=== PATIENT | female | born 1955 ===

== ENCOUNTER 2023-07-24 11:37 | Emergency (ER) | payer MEDICARE, BC, SELFPAY ==
[2023-07-24 11:44] VITALS: BP 124/57
--- NOTE | 2023-07-24 12:43 | ED.GENMED ---
History of Present Illness
General
Chief Complaint: Fall
Source: patient
Time Seen by Provider: 07/24/23 12:07
Travel History
Have you had any contact with someone who has COVID-19?: No
Do you have any symptoms of coronavirus? Fever > 100 degrees, chills, cough, shortness of breath, sore throat, loss of taste or smell, muscle aches, or headache?: No
History of Present Illness
History of Present Illness:
68-year-old female presents to the emergency room for evaluation of right wrist pain. Patient states yesterday she fell after getting out of bed. She denies any significant head injury. She did land on her outstretched right arm. She has pain
with range of motion. She is right-hand dominant. She takes Plavix but no other oral anticoagulation. Currently she has no other complaints than the right wrist pain.
Past History
Past History
ED Past Medical History: CAD, HTN, IDDM, Hypothyroidism and Other (Sarcoidosis)
ED Past Surgical History: Cardiac
Social History
Personal:
Phy Exam
Physical Exam
Physical Exam:
General: Awake, Alert, Oriented X3. No acute distress.
Vitals: unremarkable
Head: Atraumatic
Eyes: Pupils equal, EOMI
Throat: Airway intact, no exudates
Neck: Trachea midline
Neuro: Nonfocal
Skin: Warm, dry, no rash
Extremities: Tenderness palpation over the distal right radius. Mild swelling of the wrist. Pain with range of motion.
Course
Orders/Labs/Results
Orders:
Orders
07/24/23 11:47
CR Wrist - Right Min 3 Views Urgent
Comment:
Reason For Exam: pain
Hand, Right 3 View [CR Hand - Right Min 3 Views] Urgent
Comment:
Reason For Exam: pain
Vital Signs
Initial and Last Documented VS:
Initial Vital Signs
Temp Pulse Resp BP Pulse Ox
98.0 F 57 18 124/57 98
07/24/23 11:44 07/24/23 11:44 07/24/23 11:44 07/24/23 11:44 07/24/23 11:44
Last Documented Vital Signs
Temp Pulse Resp BP Pulse Ox
98.0 F 57 18 124/57 98
07/24/23 11:44 07/24/23 11:44 07/24/23 11:44 07/24/23 11:44 07/24/23 11:44
MDM/Problems Addressed
Differential Diagnosis Includes:
Radius fracture, ulnar fracture, carpal bone fracture, sprain
MDM/Problems Addressed:
Radius fracture, carpal bone fracture, sprain imaging confirms the presence of a distal radius fracture. Will immobilize the wrist in a splint. Have her follow-up with orthopedics.
*Radiology
Radiology exam reviewed: preliminary read by ED provider (Distal radius fracture noted)
*Pulse Oximetry
Patient hypoxic: no
*Critical Care Note
Total Time (30-74mins, 75-104mins- exclusive of procedures): Not Applicable
ED Attending Note
-
Portions of this chart may have been created with voice recognition software.� Occasional wrong word or��sound alike� substitutions may have occurred due to the inherent limitations of voice recognition software.
Discharge Plan
Departure
Patient Disposition: Home (Routine Discharge)
Date of Disposition: 07/24/23
Time of Disposition: 12:47
Patient with high blood pressure during this ER visit?: No
Discharge Problem:
Distal radius fracture, right
Instructions: Radius Fracture (DC)
Prescriptions:
No Action
aspirin [Adult Aspirin Regimen] 81 MG tablet,delayed release (DR/EC)
81 mg PO
clopidogrel 75 MG tablet
PO DAILY
pravastatin 10 MG tablet
10 mg PO DAILY
pantoprazole 40 MG tablet,delayed release (DR/EC)
40 mg PO DAILY
losartan 25 MG tablet
25 mg PO DAILY
levothyroxine 112 MCG tablet
112 mcg PO DAILY
escitalopram oxalate 10 MG tablet
10 mg PO DAILY
ezetimibe 10 MG tablet
10 mg PO DAILY
potassium chloride 10 MEQ capsule, extended release
10 meq PO DAILY
biotin 1 MG tablet
1 mg PO DAILY
fn-xyd-egmfq acid-lutein 1 EACH tablet,chewable
1 ea PO DAILY
Li-H9-pex-pwkj-upp-uvok-boron [Caltrate 600-D Plus Minerals] 1 EACH tablet,chewable
1 ea PO DAILY
hydrocodone-acetaminophen 5-325 mg tablet
1 tab PO Q8H PRN (Reason: Pain) Qty: 10 0RF
Referrals:
Maciej Estrada MD [Active] -
Caitie Laird DO [Family Provider] -
Interventions
Interventions:
*ED COVID-19 Vaccine History Last Done: 07/24/23 11:44
ED-Musculoskeletal Assessment Last Done: 07/24/23 12:06
ED- Neurological Assessment Last Done: 07/24/23 12:06
ED-Skin Assessment Last Done: 07/24/23 12:06
Discharge Date and Time
Print Language: TAJIK
== END 2023-07-24 13:02 | disposition home or self-care (01) ==
LOC: EMR 11:37
PROVIDERS: EMERGENCY PHYSICIAN Emergency Medicine; FAMILY PHYSICIAN Family Medicine Geriatric Medicine
DX: S52.591A Other fractures of lower end of right radius, initial encounter for closed fracture (principal); W06.XXXA Fall from bed, initial encounter; Z79.01 Long term (current) use of anticoagulants
CPT/HCPCS: 99283; 29125; 73110; 73130

== ENCOUNTER 2023-10-05 12:03 | Emergency (ER) | payer MEDICARE, BC, SELFPAY ==
[2023-10-05 12:16] VITALS: BP 149/59
--- NOTE | 2023-10-05 14:25 | ED.MUSCINJ ---
HPI-Injury
General
Chief Complaint: Musculo-Skeletal Complaint
Source: patient
Exam Limitations: none
Time Seen by Provider: 10/05/23 14:23
Nursing documentation reviewed up to this point in time: agreed with
History of Present Illness-Injury
Initial Injury comments:
68-year-old female with history of sarcoidosis, HTN, CAD with CABG, on Plavix and baby asa, IDDM, hypothyroid, L2 compression fracture on 09/14/23 from lifting patio block, wears back brace. Followed by Dr. Helton at [place]. Has had increasing pain in
the right hip over past 10 days. Pain worse when laying on her right side trying to sleep. She is able to ambulate well.
Past History
Past History
ED Past Medical History: CAD, HTN, IDDM, Hypothyroidism and Other (Sarcoidosis)
ED Past Surgical History: Cardiac (CABG 2019)
Social History
Tobacco: Non-smoker
Alcohol: Occasional
Personal:
Living: with family
Review of Systems
Review of Systems
Allergies reviewed?: Yes
All Other Systems: ROS reviewed and negative except as documented in HPI and ROS
Constitutional: Denies fever
ABD/GI: Denies abdominal pain
: Denies incontinence or difficulty voiding
Musculoskeletal: Reports back pain (from recent L2 compression fx. ) and other (pain right hip)
Skin: Reports no symptoms
Neurological: Denies weakness or numbness
Phy Exam
Physical Exam
Physical Exam:
GENERAL: No acute distress. A&Ox3.
CONSTITUTIONAL: Afebrile.
RESPIRATORY: Regular respirations, nonlabored, lungs clear.
CARDIOVASCULAR: Regular rate and rhythm, no murmurs, no rubs.
GI: Soft, nontender
MUSCULOSKELETAL: Moves with ease. Good ROM of LEs. Tender about the right hip. Well perfused. Ambulates well with normal gait
SKIN: Warm, dry, pink
PSYCH: Normal mood and affect. Well kept, interactive and appropriate
NEUROLOGIC: Awake, alert and oriented. No focal neurological deficits
Injury Course
Orders/Labs/Results
Orders:
Orders
10/05/23 12:21
CR Hip - RT w/wo Pel 2-3 Vw* Urgent
Comment:
Reason For Exam: pain
Include a pelvis x-ray?: Yes
MDM/Problems Addressed
Differential Diagnosis Includes:
Osteoarthritis/DJD, hip bursitis, fx.
MDM/Problems Addressed:
68-year-old female with history of sarcoidosis, HTN, CAD with CABG, on Plavix and baby asa, IDDM, hypothyroid, L2 compression fracture on 09/14/23 from lifting patio block, wears back brace. Followed by Dr. Helton at [place]. Has had increasing pain in
the right hip over past 10 days. Pain worse when laying on her right side trying to sleep. She is able to ambulate well.
X-ray right hip radiology report read:IMPRESSION:
Moderate bilateral hip osteoarthritis.
Mild bony demineralization.
Moderate fecal material in the colon
Copy report reviewed with and given to patient
We will treat for bursitis/arthritis flare
Prescription for tramadol 50 mg No. 10 tablets sent to her pharmacy
She will follow-up with her orthopedic Dr. Helton at [place] as scheduled on 10/21
*Critical Care Note
Total Time (30-74mins, 75-104mins- exclusive of procedures): Not Applicable
ED Attending Note
-
Portions of this chart may have been created with voice recognition software.� Occasional wrong word or��sound alike� substitutions may have occurred due to the inherent limitations of voice recognition software.
Discharge Plan
Departure
Patient Disposition: Home (Routine Discharge)
Date of Disposition: 10/05/23
Time of Disposition: 14:52
Patient with high blood pressure during this ER visit?: No
Condition: Good
Discharge Problem:
Acute pain of right hip
Instructions: Osteoarthritis, Hip Bursitis, Hip pain in adults
Prescriptions:
New
tramadol 50 mg tablet
50 mg PO HS PRN (Reason: Pain) Qty: 10 0RF
No Action
aspirin [Adult Aspirin Regimen] 81 MG tablet,delayed release (DR/EC)
81 mg PO
clopidogrel 75 MG tablet
PO DAILY
pravastatin 10 MG tablet
10 mg PO DAILY
pantoprazole 40 MG tablet,delayed release (DR/EC)
40 mg PO DAILY
losartan 25 MG tablet
25 mg PO DAILY
levothyroxine 112 MCG tablet
112 mcg PO DAILY
escitalopram oxalate 10 MG tablet
10 mg PO DAILY
ezetimibe 10 MG tablet
10 mg PO DAILY
potassium chloride 10 MEQ capsule, extended release
10 meq PO DAILY
biotin 1 MG tablet
1 mg PO DAILY
cv-hbc-yuqyb acid-lutein 1 EACH tablet,chewable
1 ea PO DAILY
Pp-L7-lcy-icjc-oyo-oifw-boron [Caltrate 600-D Plus Minerals] 1 EACH tablet,chewable
1 ea PO DAILY
hydrocodone-acetaminophen 5-325 mg tablet
1 tab PO Q8H PRN (Reason: Pain) Qty: 10 0RF
Referrals:
Caitie Laird DO [Family Provider] -
Activity Restrictions/Additional Instructions:
As we discussed, I sent a prescription for Tramadol to your pharmacy to take at bedtime if needed for pain.
Let your orthopedic doctor know if your hip is not improved by your visit on 10/21
Interventions
Interventions:
*Risk Screen - Suicide Last Done: 10/05/23 15:20
*General Assessment Last Done: 10/05/23 12:16
*Neglect/Abuse Screening Last Done: 10/05/23 14:08
ED- Fall Risk Assessment Last Done: 10/05/23 14:07
*ED COVID-19 Vaccine History Last Done: 10/05/23 12:16
*Nursing Disposition Last Done: 10/05/23 15:20
ED-Musculoskeletal Assessment Last Done: 10/05/23 14:06
Discharge Date and Time
Discharge Date/Time: 10/05/23 15:20
Print Language: UKRAINIAN
== END 2023-10-05 15:20 | disposition home or self-care (01) ==
LOC: EMR 12:03
PROVIDERS: EMERGENCY PHYSICIAN Emergency Medicine; FAMILY PHYSICIAN Family Medicine Geriatric Medicine
DX: M25.551 Pain in right hip (principal); S32.029A Unspecified fracture of second lumbar vertebra, initial encounter for closed fracture; X50.0XXA Overexertion from strenuous movement or load, initial encounter; Y93.89 Activity, other specified; D86.9 Sarcoidosis, unspecified; I10 Essential (primary) hypertension; E03.9 Hypothyroidism, unspecified; E11.9 Type 2 diabetes mellitus without complications; M16.0 Bilateral primary osteoarthritis of hip; I25.10 Atherosclerotic heart disease of native coronary artery without angina pectoris; Z95.1 Presence of aortocoronary bypass graft; Z79.02 Long term (current) use of antithrombotics/antiplatelets; Z79.82 Long term (current) use of aspirin; Z79.4 Long term (current) use of insulin; Z88.1 Allergy status to other antibiotic agents; Z88.2 Allergy status to sulfonamides; Z88.8 Allergy status to other drugs, medicaments and biological substances
CPT/HCPCS: 99283; 73502

== ENCOUNTER 2023-11-25 06:24 | Inpatient (IN) | payer MEDICARE, BC, SELFPAY ==
[2023-11-25] VITALS (37 sets, daily range): BP systolic 78–167; BP diastolic 48–99; BMI 25.3; BMI 24.2
--- NOTE | 2023-11-25 04:33 | EDRN ---
Pt says she has 11 stents and couple bypasses. Pt has never had a ND. Pt usually gets pain in her arm when she needs intervention. Pt noted her feet swelling up tonight. Pt developed pain in L arm around 2330 and took 3 ntg and pain went away.
Pain returned around 0300 into her arm and went into her chest so she took 3 more ntg which did not get rid of the pain in her L arm or chest. 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 Pt feels her breathing is heavier and
noted 'a little' abd pain earlier, not now. Pt has 'a little' weakness. Pt had diaphoresis with pain. No n/v, fever/chills/cough, dizziness.
--- NOTE | 2023-11-25 04:36 | ED.GENMED ---
History of Present Illness
General
Chief Complaint: Chest Pain
Source: patient and family
Exam Limitations: clinical condition
Time Seen by Provider: 11/25/23 04:29
History of Present Illness
History of Present Illness:
68-year-old female presents with substernal chest pain radiating to her left arm. This pain initially began at 11:30 AM. She took 3 nitroglycerin and the pain subsided briefly. Around 3 AM she was awakened again and had a recurrence of chest
pain. This time she states that the nitroglycerin did not work. She follows with a car tester Dr. Mame Maciel at [facility]. She has had 11 stents and a double bypass surgery. She does live locally. She had a complication from the
double bypass and was treated for osteomyelitis at our wound care center.
Vital signs are stable. Patient not hypoxic
Nursing note reviewed. I agree with nursing documentation up to this point in time.
Home Meds and allergies reviewed.
NUMBER AND COMPLEXITY OF PROBLEMS ADDRESSED AT THE ENCOUNTER
� Chronic conditions affecting care:
� Acute Exacerbation and/or Progression of Chronic Illness:
� Differential Diagnosis includes:
AMOUNT AND/OR COMPLEXITY OF DATA TO BE REVIEWED AND ANALYZED
I performed an independent evaluation of the following and my interpretation is:
EKG:
CT:
X-rays:
Ultrasound:
Laboratory Studies:
Other:
Review of other/old records:
Clinical information was obtained by an independent historian:
Prescriptions/Medications Considered but not given:
Further testing considered but not performed:
RISK OF COMPLICATIONS AND/OR MORBIDITY OR MORTALITY OF PATIENT MANAGEMENT
Social determinants of health affecting care: Good Social Support
Discussion with other providers: I spoke with Dr. Heart shortly after patient's arrival via telephone and [place] text. He agreed that EKG does not show a STEMI but there is a diffuse ischemic pattern.
Escalation of care including admission/observation vs risk of discharge considered:
CRITICAL CARE NOTE:
Total Time (exclusive of procedures):
Update:
Past History
Past History
ED Past Medical History: CAD, HTN, IDDM, Hypothyroidism and Other (Sarcoidosis)
ED Past Surgical History: Cardiac (CABG 2019)
Social History
Tobacco: Non-smoker
Alcohol: Occasional
Personal:
Living: with family
Review of Systems
Review of Systems
Allergies reviewed?: Yes
Other source history: family
All Other Systems: ROS reviewed and negative except as documented in HPI and ROS
Constitutional: Reports no symptoms
EENT: Reports no symptoms
Respiratory: Reports no symptoms
Cardiac: Reports chest pain and diaphoresis
ABD/GI: Reports no symptoms
: Reports no symptoms
Musculoskeletal: Reports edema
Skin: Reports no symptoms
Neurological: Reports no symptoms
Endocrine: Reports no symptoms
Hematologic/Lymphatic: Reports no symptoms
Psychiatric: Reports anxiety
Phy Exam
General Physical Exam
General Presentation: moderate distress
General age: appears stated age
General Skin: warm and dry
General Habitus: elderly
General Mental: alert
General Hydration: appears well hydrated
ENT Exam
ENT Exam: EOMI, pharynx normal, neck supple and normocephalic
Eye Exam
Eye Exam: PERRL, cornea clear and conjunctiva normal
Cardiovascular Exam
Cardiovascular Exam: regular rate/rhythm
Pulmonary Exam
Pulmonary Exam: lungs clear, no respiratory distress, no rales, no crackles, no rhonchi, no stridor, no wheezing and no cough
Gastrointestinal Exam
Gastrointestinal Exam: normal bowel sounds, non tender, soft, no organomegaly, no pulsatile mass and non distended
Neurological Exam
Neurological Exam: alert and oriented x3
Musculoskeletal Exam
Musculoskeletal Exam: full ROM
Skin Exam
Skin Exam: normal color and diaphoresis
Psychiatric Exam
Psychiatric Exam: normal mood/affect and anxious
Scores
Heart Score for Chest Pain Patients
STEMI patient?: No
History: Highly Suspicious
ECG: Significant ST-Depression
Age: >/= 65 years
Risk Factors: >/= 3 Risk Factors or History of CAD
Troponin: >/= 3 x Normal Limit
Heart Score for Chest Pain Patients: 10
Heart Score Risk: 72.7 % MACE over next 6 weeks
Course
Orders/Labs/Results
Orders:
Orders
11/25/23 04:27
EKG [Electrocardiogram (*1)] Urgent
Reason for Study: Chest Pain
11/25/23 04:28
Cardiac Monitoring- Treatment ONCE
IV Insert/Care/Rem.- Treatment PRN
CR Chest - 2 Views Urgent
Comment:
Reason For Exam: Chest pain
O2 Therapy [RESP] Urgent
Titrate/Wean O2 to maintain O2 sat greater than (%): 90
Special Instructions: Maintain sats >/=90%
Pulse Ox/spot Check [RESP] Urgent
Quantity: 1
Special Instructions: ON ROOM AIR
11/25/23 04:38
Complete Blood Count/With Diff Urgent
Comprehensive Metabolic Panel Urgent
Magnesium Urgent
NT-proBNP Urgent
PTT Urgent
Prothrombin Time Urgent
Troponin I Urgent
11/25/23 05:16
Morphine Sulfate 4 mg .ROUTE .STK-MED ONE
Morphine Sulfate 4 mg IV NOW STA
Nitroglycerin Sublingual [Nitrostat (Sublingual)] 0.4 mg .ROUTE .STK-MED ONE
11/25/23 05:17
Nitroglycerin Sublingual [Nitrostat (Sublingual)] 0.4 mg SL [id number] PRN
11/25/23 05:18
Heparin 4,000 units IV NOW STA
Nursing to Place Non Medication Order As Directed
Physician Order: PTT 6 hours after initial start of Heparin infusion
Above order entered?: Yes
11/25/23 06:00
0.9% Sodium Chloride 1000 ml [Nss] 1,000 ml IV 500 mls/hr
Heparin 12865 Units/250 ml 25,000 units in 250 ml IV PER PROTOCOL
Weight to be used for heparin protocol in kilograms (kg):: 71
Protocol:: Cardiac Tx/Acute Coronary
PTT Goal Range to be used:: PTT 73 to 111 seconds
Order type:: Initial
INITIAL Infusion Dose (UNITS/KG/hr) & then follow protocol:: 12 units/kg/hr
Infusion Dose in UNITS/hr & then follow protocol (UNITS/hr):: 850
INFUSION RATE in mL/hr & then follow protocol (mL/hr):: 8.5
PTT less than or equal to 64 seconds:: Increase rate by 200 units/hr (+ 2 mL/hr)
PTT 64.1 to 72.9 seconds:: Increase rate by 100 units/hr (+ 1 mL/hr)
PTT 73 to 111 seconds:: Target Range. No change in rate.
PTT 111.1 to 130.9 seconds:: Decrease rate by 100 units/hr (- 1 mL/hr)
PTT 131 to 199.9 seconds:: HOLD for 1 hr. Then decrease rate by 200 units/hr (- 2 mL/hr)
PTT greater than or equal to 200 seconds:: HOLD for 2 hrs & Notify Provider. Then decrease by 200 units/hr (-
2 mL/hr)
Lab follow-up:: Each change, PTT q6h until 2 consecutive are therapeutic. Then PTT
daily.
11/25/23 06:13
Admit/Transfer Patient As Directed
Co-Sign Provider:
Level of Care: Inpatient admission
Assign to:: IVU
Physician / Group: Joce
Diagnosis: ACS
Reason for Hospitalization: ACS
Expected length of stay greater than two midnights?: Yes
ELOS- Estimated Length of Stay in days: 4
I certify the patient meets the requirements for IP care: Yes
PRN Pain Medication Management As Directed
May give lesser potent ordered pain med per pt: Yes
preference::
Protocol:: Medication orders for pain may be administered in a
manner that supports deferring to patient preference
when the pt is:
- Requesting an ordered lesser potent pain medication.
Least to most potent pain medications are defined
as: acetaminophen < NSAID < tramadol < opioids
(morphine, oxycodone, hydromorphone).
- Requesting a lesser dose of the same medication IF
ORDERED.
- Requesting a less intrusive route of administration
if both routes are prescribed by the provider (PO <
IV).
11/25/23 06:16
Code Status As Directed
Resuscitation Status: Full Code
11/25/23 06:30
Nitroglycerin 100 mg/250 ml [Nitroglycerin Premix] 100 mg in 250 ml IV PER PROTOCOL
Initial dose in mcg/min, then titrate:: 5
Titrate to keep:: Chest Pain Free
Titrate by mcg/min:: 5 mcg/min, may increase by 10 mcg/min if dose > 20 mcg/min
Frequency of titrations (minutes):: every 3-5 minutes
Maximum dose in mcg/min:: 200
Begin to taper infusion when:: Remained at goal for 2hrs
Taper by mcg/min:: 5 mcg/min
Frequency of taper (minutes) if patient maintains goal:: 30
Taper to off?: Yes
If infusion off & no longer maintaining goal:: Contact Provider
Abnormal Lab Results
11/25/23
04:38
MCV 78.9 L fL
(81.0-99.0)
RDW 14.7 H %
(11.5-14.5)
MPV 11.2 H fL
(7.4-10.4)
Absolute Neuts (auto) 7.4 H 10^3/uL
(1.4-6.5)
Absolute Lymphs (auto) 0.9 L 10^3/uL
(1.2-3.4)
Absolute Monos (auto) 0.8 H 10^3/uL
(0.1-0.6)
Neutrophils % 81.0 H %
(42.2-75.2)
Lymphocytes % 9.5 L %
(20.5-51.1)
Sodium 123 L mmol/L
(135-145)
Chloride 91 L mmol/L
(98-107)
BUN 18 H mg/dl
(7-17)
Glucose 175 H mg/dl
(70-99)
AST 51 H U/L
(14-36)
Alkaline Phosphatase 129 H U/L
(38-126)
Troponin I 1.260 H* ng/ml
11/25/23 04:38
11/25/23 04:38
Vital Signs
Initial and Last Documented VS:
Initial Vital Signs
Pulse Resp BP Pulse Ox
80 28 167/78 88
11/25/23 04:24 11/25/23 04:24 11/25/23 04:24 11/25/23 04:24
Last Documented Vital Signs
Pulse Resp BP Pulse Ox
88 26 156/78 94
11/25/23 06:34 11/25/23 06:34 11/25/23 06:34 11/25/23 06:06
*Critical Care Note
Total Time (30-74mins, 75-104mins- exclusive of procedures): 50 (Critical care statement: A total of 50 minutes of critical care time was provided for this patient. This time is separate from time utilized to perform the aforementioned documented
procedures. Aggregate critical care time includes only time during which I was engaged in work directl)
Update Note
Update Note:
Spoke with Dr. Heart several times during patient's stay. Patient troponin resulted. Home and requested hospitalist admission. Heparin. Consult to his service.
ED Attending Note
-
Portions of this chart may have been created with voice recognition software.� Occasional wrong word or��sound alike� substitutions may have occurred due to the inherent limitations of voice recognition software.
Discharge Plan
Departure
Patient Disposition: Admit
Date of Disposition: 11/25/23
Time of Disposition: 05:20
Admit to: IVU
Presentation/result/management discussed w/ accepting MD/DO: Hospitalist
Discharge Problem:
Chest pain, ACS (acute coronary syndrome), Non-ST elevated myocardial infarction (non-STEMI), Acute hyponatremia
Interventions
Interventions:
*Risk Screen - Suicide Last Done: 11/25/23 04:29
*General Assessment Last Done: 11/25/23 04:29
*Neglect/Abuse Screening Last Done: 11/25/23 04:29
ED- Fall Risk Assessment Last Done: 11/25/23 04:51
*ED COVID-19 Vaccine History Last Done: 11/25/23 04:29
ED- Cardiac Assessment Last Done: 11/25/23 04:51
[2023-11-25 04:47] LABS: % Basophils 0.7 % (0-2); % Eosinophils 0.4 % (0-6); % Immature Granulocytes 0.2 % (0-0.5); % Lymphocytes 9.5 % (20.5-51.1); % Monocytes 8.2 % (1.7-9.3); Absolute Basophils 0.1 10^3/uL (0-0.2); Absolute Lymphocytes 0.9 10^3/uL (1.2-3.4); Absolute Monocytes 0.8 10^3/uL (0.1-0.6); Absolute Neutrophils 7.4 10^3/uL (1.4-6.5); Hematocrit 38.4 % (37.0-47.0); Hemoglobin 13.5 g/dL (12.0-16.0); Mean Corp Hgb Conc. 35.2 g/dL (33.0-37.0); Mean Corpuscular Hgb 27.7 pg (27.0-31.0); Mean Corpuscular Volume 78.9 fL (81.0-99.0); Mean Platelet Volume 11.2 fL (7.4-10.4); Nucleated Red Blood Cells % 0 %; Platelet Count 180 10^3/uL (130-400); Red Blood Cell Count 4.87 10^6/uL (4.20-5.40); Red Cell Dist. Width 14.7 % (11.5-14.5); White Blood Cell Count 9.1 10^3/uL (4.8-10.8)
[2023-11-25 04:59] LABS: INR 1.03; PT 13.3 Sec (11.4-14.6)
[2023-11-25 05:00] LABS: APTT 31.4 Sec (23.4-35.0)
--- NOTE | 2023-11-25 05:05 | EDRN ---
Slightest exertion drops pt's pulse ox - applied O2 at 2 lpm via nasal cannula. Pt breathing through her mouth, instructed to breathe in through her nose. Pt with restless legs.
[2023-11-25 05:06] LABS: ALT (SGPT) 29 U/L (0-35); AST (SGOT) 51 U/L (14-36); Albumin 4.4 g/dl (3.5-5.0); Alkaline Phosphatase 129 U/L (38-126); Blood Urea Nitrogen 18 mg/dl (7-17); Calcium 9.5 mg/dl (8.4-10.2); Carbon Dioxide 25 mmol/L (22-30); Chloride 91 mmol/L (98-107); Estimated Creatinine Clearance 70 ml/min; Glucose 175 mg/dl (70-99); Magnesium 1.8 mg/dl (1.6-2.3); Potassium 4.2 mmol/L (3.5-5.1); Sodium 123 mmol/L (135-145); Total Bilirubin 0.6 mg/dl (0.2-1.3); Total Protein 6.9 g/dl (6.3-8.2); eGFR > 60.00
[2023-11-25 05:17] LABS: NT-proBNP 2540 pg/ml
[2023-11-25] MEDS: MORPHINE SULFATE 4 MG IV (05:18)
[2023-11-25] MEDS: NITROSTAT (SUBLINGUAL) 0.4 MG SL ×3 (05:29→05:40)
--- NOTE | 2023-11-25 05:43 | EDRN ---
Called pharmacy to verify heparin
--- NOTE | 2023-11-25 05:47 | EDRN ---
Pt says morphine helped her back pain, got it down to 1/10. First and second sl ntg helped pt's chest pain but after third sl ntg chest pain increased to 3/10 - Dr Sher informed of morphine and sl ntg effects. Pt's legs are no longer moving
non-stop on the stretcher.
--- NOTE | 2023-11-25 06:08 | EDRN ---
Called pharmacy again to verify heparin order - will fix
[2023-11-25] MEDS: HEPARIN 4000 UNITS IV (06:13)
[2023-11-25] MEDS: HEPARIN 25000 UNITS/250 ML IV (06:14)
--- NOTE | 2023-11-25 06:22 | HPS.HSE ---
Family Physician
-
Family Physician: Caitie Laird
Chief Complaint
-
Chest Pain
History of Present Illness
Patient is a 68y F with PMH significant for ASCVD and post-op sternum infection who presents to ED complaining of chest pain and arm pain since last PM. Patient states that she started with L arm pain (near axilla / underarm area) around 11:30
PM. She took 3 SL NTG at home and her pain seemed to improve. She was not able to get to sleep however and the pain worsened again around 3 AM - this time accompanied by L sided chest pain as well. Patient took another 3 SL NTG; however, the pain
did not improve.
Patient states that she felt diaphoretic and SOB en route to the hospital.
Patient notes that these symptoms are typical anginal symptoms for her. She has experienced multiple cardiac events in the past and has had CABG x 2 as well as 11 coronary stents in total.
Her most recent stent was in July of 2023 (@[facility]
Patient received an additional 3 SL NTG here in the ED as well as 4mg of IV morphine.
She states that her chest pain is improved; however, her L arm pain remains a 5/10.
Patient states that the associated SOB and diaphoresis are unusual for her.
Medical History
Past Medical History
Past Medical History: Reports Other
Additional Past Medical History:
ASCVD
DM-I (Age 20)
Sternum Infection / Osteomyelitis s/p Multiple Surgeries and on Lifelong Abx
Hypertension
Hypothyroidism
GERD
Past Surgical History: Reports Other
Additional Past Surgical History:
CABG x 2
Multiple Sternum Surgeries including Partial Sternum / Rib Resections, Debridement, etc
PTCA with Stent (11 total, most recent July 2023)
Social History
Tobacco: Former Smoker (Quit smoking 30 years ago. Approx 20 pack years total use.)
Alcohol: Occasional
Drug: None
Personal:
Living: With Family
Family History
Family History: Other (Brother: CAD)
Allergies / Home Medications
Allergies reflects when Allergies were last updated in [employer].
Home Medications with original date entered in [employer]
Allergy/Medication List:
Allergies
Allergy/AdvReac Type Severity Reaction Status Date / Time
amlodipine Allergy Unknown Unknown Verified 11/25/23 04:26
ciprofloxacin Allergy Nausea / Verified 11/25/23 04:26
Vomiting
evolocumab Allergy Unknown Verified 11/25/23 04:26
[From Repatha Pushtronex]
rosuvastatin [From Crestor] Allergy Unknown Verified 11/25/23 04:26
sulfamethoxazole Allergy Nausea / Verified 11/25/23 04:26
[From Bactrim] Vomiting
tramadol Allergy Nausea / Verified 11/25/23 04:26
Vomiting
trimethoprim [From Bactrim] Allergy Nausea / Verified 11/25/23 04:26
Vomiting
cannabidiol (CBD) extract AdvReac Unknown Verified 11/25/23 04:26
Home Medications
Ca 600 mg-D3 800 unit-magnes 40 qx-cavj-bhs-devonte-boron chewable tablet (Caltrate 600-D Plus Minerals) 1 ea PO DAILY 09/18/21
aspirin 81 mg tablet,delayed release (Adult Aspirin Regimen) 81 mg PO DAILY 09/18/21
biotin 1 mg tablet 1 mg PO DAILY 09/18/21
clopidogrel 75 mg tablet 75 mg PO DAILY 09/18/21
escitalopram oxalate 10 mg tablet 10 mg PO DAILY 09/18/21
ezetimibe 10 mg tablet 10 mg PO DAILY 09/18/21
levothyroxine 112 mcg tablet 112 mcg PO DAILY 09/18/21
losartan 25 mg tablet 25 mg PO DAILY 09/18/21
multivit with min-folic acid-lutein 200 mcg-137.5 mcg chewable tablet 1 ea PO DAILY 09/18/21
pantoprazole 40 mg tablet,delayed release 40 mg PO DAILY 09/18/21
pravastatin 10 mg tablet 10 mg PO DAILY 09/18/21
CoQ-10 1 cap PO DAILY 11/25/23
cefdinir 300 mg capsule 300 mg PO BID 11/25/23
fluconazole 200 mg tablet 200 mg PO DAILY 11/25/23
isosorbide dinitrate 30 mg tablet 30 mg PO TID 11/25/23
ranolazine 500 mg tablet,extended release,12 hr 500 mg PO BID 11/25/23
tramadol 37.5 mg-acetaminophen 325 mg tablet 1 tab PO TID PRN L2 compression fx 11/25/23
insulin pump
Review of Systems
-
History Source: Patient
A 12 point ROS was completed and negative except as noted: Yes
Constitutional: Reports Fatigue; Denies Fever or Chills
EENT: Denies Sore Throat
Respiratory: Reports Trouble Breathing; Denies Cough
Cardiac: Reports Chest Pain and Diaphoresis; Denies Palpitations or Syncope
Abdomen/GI: Denies Abdominal Pain, Nausea, Vomiting or Diarrhea
: Denies Dysuria or Frequency
Musculoskeletal: Reports Edema; Denies Joint Pain
Neurological: Denies Dizzy or Headache
Psych: Denies Depression or Anxiety
Physical Exam
Vital Signs
Vital Signs
Pulse Resp BP Pulse Ox
88 28 148/76 94
11/25/23 06:06 11/25/23 06:06 11/25/23 06:06 11/25/23 06:06
Physical Exam
General: Other (68y F in mild distress due to pain / discomfort.)
HEENT: Moist mucous membranes and PERRLA
Respiratory: Other (Bibasilar rales about 1/4 up. No wheeze / rhonchi.)
Cardiac: S1/S2, Regular Rhythm, Murmur (II/ MARCUS) and Other (Post-surgical changes over the sternum including local tenderness. No fluctuance / erythema / discharge / etc.)
GI: Soft, Non Tender, Non Distended and Normal Bowel Sounds
Musculoskeletal: No Clubbing, No Cyanosis and Other (Trace edema at the ankles b/l. Chronic venous stasis skin changes.)
Neuro: AO x 3
Laboratory Results
-
11/25/23 04:38
11/25/23 04:38
Laboratory Results
PT 13.3 Sec (11.4-14.6) 11/25/23 04:38
INR 1.03 11/25/23 04:38
APTT 31.4 Sec (23.4-35.0) 11/25/23 04:38
Total Bilirubin 0.6 mg/dl (0.2-1.3) 11/25/23 04:38
AST 51 U/L (14-36) H 11/25/23 04:38
ALT 29 U/L (0-35) 11/25/23 04:38
Alkaline Phosphatase 129 U/L (38-126) H 11/25/23 04:38
Troponin I 1.260 ng/ml H* 11/25/23 04:38
Impression/Plan
-
A/P: Patient is a 68y F with PMH significant for ASCVD and DM-I who presents to ED complaining of chest pain and LUE pain since 11:30 PM last night.
ACS
ASCVD
- Admit to IVU for further evaluation and treatment.
- EKG shows ischemic changes - especially in precordial leads.
- Troponin elevated at 1.260 on initial set - follow to peak.
- Patient continues to have discomfort despite treatment thus far in the ED.
- Continue IV heparin.
- Begin IV NTG and titrate for pain free.
- IV MSO4 as needed to supplement.
- Continue DAPT, statin (can only tolerate low dose pravastatin unfortunately).
- Cardiology evaluation and probable cath this AM.
- Patient typically followed by Cardiology at [facility].
CHF
Hyponatremia
- Patient with rales on exam, increased vasc markings on CXR and elevated BNP (with no prior for comparison).
- Patient states that she was previously maintained on diuretics - but not in quite some time.
- She has appreciated increased ankle swelling over the past few days.
- IV NTG starting now for pain control as noted above.
- Once above issue is stabilized / BP remains stable - consider trial of IV Lasix and follow for improvement.
- Check Echo.
- Na level (no prior for comparison) will likely also improve with diuresis.
- Check urine studies.
- NPO for now - fluid restriction once OK for diet.
DM-I
- Stable. Continue to monitor glucose.
- Insulin via patient's own pump for now.
- Update A1C.
Benign Hypertension
- Stable. Oral BP medications on hold / with holding parameters while on IV NTG, etc.
- Adjust regimen as needed prior to discharge.
Chronic Sternum Osteomyelitis
- Stable. No recent / new issues in this regard.
- Afebrile, no leukocytosis, etc.
- Continue current / chronic suppression antimicrobials (cefdinir / Fluconazole).
- Has been seen by Dr. Oh in the event that ID input is needed.
Hypothyroidism
- Stable. Continue T4 replacement.
DVT Prophylaxis: On IV Heparin
Code Status: Full
[2023-11-25] MEDS: NITROGLYCERIN PREMIX 250 IV (07:08)
--- NOTE | 2023-11-25 08:25 | CON.CAR ---
Addendum entered and electronically signed by Allison Mosqueda MD 11/25/23 09:44:
I saw and examined the patient.
The Cloth Examiner's note was reviewed and I agree with the note.
Comment: I spoke at length with the patient and her at the bedside. She has complex cardiovascular history and we have requested records. She has a history of CABG x 2 (02/2020) perhaps with GOYAL and she tells me another vessel is '100%
occluded '. She had complicated course with sternal wound infection followed by infectious disease and on suppressive antibiotics. She recently in July had a stent (possibly diagonal) given unstable angina she does not think it involved her
bypass grafts but details unknown. We have requested all records but have not received as of this time. She presents now with unstable angina, her usual left arm pain into her chest. Currently with left arm pain improving with IV nitrates. We do
not have a recent EKG but current EKG with anteroseptal and lateral TN, age undetermined features of this being old. She denies having a myocardial infarction previously. Echocardiogram is abnormal with ejection fraction moderately depressed and
preliminarily multiple wall motion abnormalities with the septum, mid to distal inferior, inferolateral, distal lateral and possibly anterior cerna being hypokinetic, base moving the best.
-Hemodynamically stable
-Continue heparin, nitrates, aspirin and Plavix.
-Will discuss with interventional cardiology proceeding to cardiac catheterization
-Troponin positive noted, will trend
-Assessment and risk factor modification
She is not very knowledgeable regarding her history. Await records.
Original Note:
Consultation
Consultation Request
Date/Time Consultation Requested: 11/25/2023
Date/Time Consultation Performed: 11/25/2023
Requesting Provider: Dr. Smith
Performing Provider: Dr. Allison Mosqueda
Reason for Consultation: Chest pain, elevated troponin
Medical History
-
History of Present Illness:
HPI: Jessica is a 68 year old female with PMH of CAD with extensive prior cardiac stenting and CABG x2, chronic HFpEF, HTN, HLD, type 1 DM, sarcoidosis, sternal osteomyelitis, and radial artery thrombosis who presented to [facility] for evaluation of chest
pain. She started with chest pain last evening and took a SL nitro which relieved her pain initially. She then went to bed, but again woke up around 4 AM with recurrent chest pain with radiation into her arm. She again took SL nitro, however this
did not relieve her pain. She came to [facility] for evaluation as she states these symptoms are consistent with her prior angina. On arrival to [facility], she was noted to have elevated troponin of 1.26. She was started on IV heparin and given SL nitro, but
continued to have chest pain and arm pain, so she was started on IV nitro. She reports since starting IV nitro, her chest pain has resolved, but she continues to have L arm pain. Echo being completed during interview. She also had elevated troponin
of 2540 and chest xray showed pulmonary edema. Cardiology consulted for evaluation given chest pain with significant coronary disease history.
PMH:
CAD
h/o 11 coronary stents
s/p CABG x 2 (GOYAL to LAD, SVG to RPDA) 03/11/2020
s/p PCI of D1 07/29/2023
Chronic HFpEF
HTN
HLD
Type I DM
h/o lung sarcoidosis
CKD 3
h/o chronic sternal osteomyelitis
h/o radial artery thrombosis
Hypothyroidism
Past Medical History
Past Medical History: Other (In HPI)
Social History
Tobacco: Former Smoker (Quit in 1989)
Alcohol: None
Drug: None
Personal:
Living: With Family
Employment: Retired
Family History
Family History: CAD and Hypertension
Allergies / Home Medications
Allergy/AdvReac Type Severity Reaction Status Date / Time
amlodipine Allergy Unknown Unknown Verified 11/25/23 04:26
ciprofloxacin Allergy Nausea / Verified 11/25/23 04:26
Vomiting
evolocumab Allergy Unknown Verified 11/25/23 04:26
[From Repatha Pushtronex]
rosuvastatin [From Crestor] Allergy Unknown Verified 11/25/23 04:26
sulfamethoxazole Allergy Nausea / Verified 11/25/23 04:26
[From Bactrim] Vomiting
tramadol Allergy Nausea / Verified 11/25/23 04:26
Vomiting
trimethoprim [From Bactrim] Allergy Nausea / Verified 11/25/23 04:26
Vomiting
cannabidiol (CBD) extract AdvReac Unknown Verified 11/25/23 04:26
�Medication �Instructions �Recorded �Confirmed �Type
Ca 600 mg-D3 800 unit-magnes 40 1 ea PO DAILY 09/18/21 11/25/23 History
nz-wheh-geq-devonte-boron chewable
tablet (Caltrate 600-D Plus
Minerals)
aspirin 81 mg tablet,delayed 81 mg PO DAILY 09/18/21 11/25/23 History
release (Adult Aspirin Regimen)
biotin 1 mg tablet 1 mg PO DAILY 09/18/21 11/25/23 History
clopidogrel 75 mg tablet 75 mg PO DAILY 09/18/21 11/25/23 History
escitalopram oxalate 10 mg tablet 10 mg PO DAILY 09/18/21 11/25/23 History
ezetimibe 10 mg tablet 10 mg PO DAILY 09/18/21 11/25/23 History
levothyroxine 112 mcg tablet 112 mcg PO DAILY 09/18/21 11/25/23 History
losartan 25 mg tablet 25 mg PO DAILY 09/18/21 11/25/23 History
multivit with min-folic 1 ea PO DAILY 09/18/21 11/25/23 History
acid-lutein 200 mcg-137.5 mcg
chewable tablet
pantoprazole 40 mg tablet,delayed 40 mg PO DAILY 09/18/21 11/25/23 History
release
pravastatin 10 mg tablet 10 mg PO DAILY 09/18/21 11/25/23 History
CoQ-10 1 cap PO DAILY 11/25/23 11/25/23 History
cefdinir 300 mg capsule 300 mg PO BID 11/25/23 11/25/23 History
fluconazole 200 mg tablet 200 mg PO DAILY 11/25/23 11/25/23 History
isosorbide dinitrate 30 mg tablet 30 mg PO TID 11/25/23 11/25/23 History
ranolazine 500 mg tablet,extended 500 mg PO BID 11/25/23 11/25/23 History
release,12 hr
tramadol 37.5 mg-acetaminophen 325 1 tab PO TID PRN L2 compression fx 11/25/23 11/25/23 History
mg tablet
Review of Systems
-
History Source: Patient
All other systems: Negative unless noted
Physical Exam
Vital Signs
Pulse Resp BP Pulse Ox
82 25 142/71 94
11/25/23 07:20 11/25/23 07:20 11/25/23 07:20 11/25/23 06:06
Lab Results
11/25/23 04:38
11/25/23 04:38
Troponin I 1.260 ng/ml H* 11/25/23 04:38
Dtj-G-Wbkxmnztnlc Pept 2540 pg/ml 11/25/23 04:38
Physical Exam
General: Well Developed, Well Nourished and No Apparent Distress
HEENT: Normocephalic, Anicteric and Moist Mucous Membranes
Respiratory: Clear and Non Labored Respirations
Cardiac: S1/S2 and Regular Rhythm
Musculoskeletal: No Clubbing and No Cyanosis
Skin: Warm and Dry
Neuro: AO x 3 and Nonfocal/Grossly Intact
Psych: Calm
Impression / Plan
-
PCP: Dr. Caitie Laird
Lehr Cutter: Dr. Mame Bardales ([facility])
Impression:
Presented with chest pain
Elevated troponin, suspect NSTEMI
Hyponatremia
Acute on chronic HFpEF
CAD
h/o 11 coronary stents
s/p CABG x 2 (GOYAL to LAD, SVG to RPDA) 03/11/2020
s/p PCI of D1 07/29/2023
HTN
HLD
Type I DM
h/o lung sarcoidosis
CKD 3
h/o chronic sternal osteomyelitis
on chronic cefdinir/fluconazole
h/o radial artery thrombosis
Hypothyroidism
Echo 03/09/2020: EF 60 to 65%, mild AI, trace TR,
Echo 11/25/2023: Study completed, report pending
Plan:
-Presented with chest pain and L arm pain, consistent with prior angina. Pain not relieved w/ SL nitro or morphine. Nitro gtt started in ER and chest pain improved, however still with L arm pain, will increase nitro gtt.
-Elevated troponin noted. Suspect NSTEMI. Initial troponin 1.26. Continue to trend to peak.
-Echo completed, official report pending. Prelim w/ WMA of septum.
-She has h/o significant CAD with 11 prior stents, most recently 07/2023. Requested and reviewed records from primary tetryl dissolver operator.
-EKG reviewed, SR w/ ST changes noted anteriorly.
-Continue heparin gtt.
-Continue aspirin 81mg daily and plavix 75mg daily. Loaded while in ER.
-Given chest pain and elevated troponin with known CAD, will plan for C today given ongoing discomfort despite nitro gtt. Keep NPO.
-With elevated proBNP and chest xray with pulmonary edema, suspect component of heart failure. She has tolerated lasix in the past, however is not on chronically as OP. IV lasix 20mg given in ER.
-Hyponatremia noted with Na of 123.
-Continue Imdur, ranexa, and losartan.
-Continue pravastatin 10mg daily. Reportedly is unable to tolerate high intensity statin and did not tolerate Repatha due to hair loss.
-Check CVE, Hgb A1c
HPI: Jessica is a 68 year old female with PMH of CAD with extensive prior cardiac stenting and CABG x2, chronic HFpEF, HTN, HLD, type 1 DM, sarcoidosis, sternal osteomyelitis, and radial artery thrombosis who presented to [facility] for evaluation of chest
pain. She started with chest pain last evening and took a SL nitro which relieved her pain initially. She then went to bed, but again woke up around 4 AM with recurrent chest pain with radiation into her arm. She again took SL nitro, however this
did not relieve her pain. She came to [facility] for evaluation as she states these symptoms are consistent with her prior angina. On arrival to [facility], she was noted to have elevated troponin of 1.26. She was started on IV heparin and given SL nitro, but
continued to have chest pain and arm pain, so she was started on IV nitro. She reports since starting IV nitro, her chest pain has resolved, but she continues to have L arm pain. Echo being completed during interview. She also had elevated troponin
of 2540 and chest xray showed pulmonary edema. Cardiology consulted for evaluation given chest pain with significant coronary disease history.
Data Reviewed
-
EKG: Tracing Personally Visualized and interpreted
Radiology: Report Reviewed by me
Medical Tests (Nuc Med, Echo etc): Discussed with Physician
Labs: Labs Reviewed by me
Old Records: Reviewed
[2023-11-25] MEDS: ZOFRAN 4 MG PO (08:27)
[2023-11-25] MEDS: PLAVIX 300 MG PO (08:57)
[2023-11-25] MEDS: ASPIRIN 325 MG PO (08:57)
[2023-11-25 09:05] LABS: Total Cholesterol 197 mg/dl (50-199); Triglyceride 70 mg/dl (10-149); Very Low Density Lipoprotein 14 mg/dl (0-30)
[2023-11-25] MEDS: LASIX 40 MG IV ×2 (09:07→16:22)
[2023-11-25 09:15] LABS: HDL Cholesterol 127 mg/dl; LDL Cholesterol, Calculated 56 mg/dl
--- NOTE | 2023-11-25 09:59 | PTCARENOTE ---
Addendum entered by Asya Hicks RN 11/25/23 10:31:
also patients told me she has a L2 FX that happened in September from patient lifting a patio block.she has a brace but presently not on, and patients stated they are hoping it heals on its own.
Original Note:
patient arrived from ER, nauseated,nurse from ER said she just gave her Zofran. patient is CP free. oriented patient to room, call culver. monitor placed , NSR with PVC's, patient is RIVERA,on 2 LNC,o2 sat 92% on 2LNC. patient also stated she needs to
void, pure wick placed due to patients SOB,nausea and she has had CP in ER. IV heparin @ 850units/hr and IV Nitroglycerin @ 15mcg/min or 2.3 cc/hr via right hand. she also has an INT in left hand. patient has her own insulin pump and as per ordered
patient may use her own.log sheet at bedside and notified endocrinology ASSESSMENT NURSE. also intervention placed on work list. dexcom right upper arm. informed patient that we will be taking her BS, verbalized understanding. patients is at bedside
wanting me to notify Dr. Allison Mosqueda of patients other cinetechnician at [facility], TT Dr. Cooper, she has already contacted her.Dr. Mame Bardales [phone]. patient remains NPO.
[2023-11-25 10:30] LABS: Cortisol, Random 36.9 ug/dl
--- NOTE | 2023-11-25 10:30 | PN.DE.MGMTRT ---
Insulin Management
- -
11/25/2023: Diabetes Management Consult
68 year old female presented to [facility] for evaluation of chest pain. PMH: CAD with extensive prior cardiac stenting and CABG x2, chronic HFpEF, HTN, HLD, Hypothyroidism, GERD, Sarcoidosis, T1DM (since age 20), radial artery thrombosis and sternum
Infection/Osteomyelitis s/p Multiple Surgeries and on Lifelong Abx.
Pt uses Medtronic 680G with Guardian sensor. She routinely sees Endo Dr. Harris Toledo.
Pt is awake, A/O x3, sitting up in bed, - Brian at bedside
She is currently NPO waiting to go for cardiac Cath.
Pump settings as follows:
Basal 12am -12am 0.750
[id number] - 12am 1:73
ICR
12am 1:6.5
11am 1:6
4 pm 1:6
7 pm 1:5.5
Target 85-120
Insulin duration katty 2.5hrs
24 total 18 units.
Current glucose is 180 via her sensor. States she prefers keeping her glucose levels >120 because she doesn't feel good when her sugars drop.
Pt is independent with managing the device at this time, discussed process of using insulin pump while in the hospital.
Explained and provided bedside worksheet.
Diabetes History
- -
Type of Diabetes: 1
Pre-Admission Diabetes Regimen
11/25/23 11/25/23 11/25/23
04:38 09:24 13:24
Creatinine 0.7 Cancelled Cancelled
11/25/23 11/25/23
17:24 21:24
Creatinine Cancelled Cancelled
Insulin Pump Settings
IP Diabetes Regimen
11/25/23 11/25/23 11/25/23
04:38 09:24 13:24
Glucose 175 H Cancelled Cancelled
11/25/23 11/25/23
17:24 21:24
Glucose Cancelled Cancelled
Patient Education
--- NOTE | 2023-11-25 11:10 | W.PN.HOSP.TC ---
Addendum entered and electronically signed by Garett Smith MD 11/25/23 14:23:
#DM on insulin pump
diabetes education and mgmt by RN
Original Note:
Today's Communication/Plan
-
cont mgmt for NSTEMI
Hyponatremia monitoring and nephro consult, Urine studies pending, restrict fluids
Assessment / Plan
Assessment / Plan
68yo F with PMHx of CAD s/p multiple PCI and CABG, Hx of recurrent infection of sternal surgical site on chronic supressive therapy, hypothyroidism, HLD, HTN, anxiety, GERD came with change in her chest pain quality. She usually getting pressure and
pain starting in her L arm, but this time it traveled to her chest, found elevated troponin, managed for NSTEMI complicated by pulmonary edema
A/P:
#NSTEMI
#Pulmonary edema 2/2 unspecified CHF
#Essential HTN
#CAD s/p PCI and CABG
#Hx of chest wall infection
#Prolonged QTc
No redness on the chest
ASA, plavix, statin, nitro drip
Morphine and O2
Lasix and daily weight, follow electrolytes
Telemetry, Echo
Cont Abx suppresive therapy
Check THS, HgbA1c, Lipids
Hold BB in view of hypervolemia
Serial troponin to be followed
#Hyponatremia
acute on chronic, suspect fluid overload
Urine Osm, Urine Na
Serial BMP q4h
restrict fluids
target fluid correction by 4-6mq per 24h
Nephrology consult
#Essential HTN
#HLD
#Anxiety d/o
cont current meds
#mild AST elevation
check HepC Ab, CPK
DVT ppx on heparin drip
Full code
I have spent at least 70min reviwing chart, test results, communication with consultants, family and direct patient care
Anticipated Discharge: > 48 hours
Subjective/Interval History
-
Date of Service: November 25, 2023
Objective Data
-
Labs:
Laboratory Results
11/25/2324 11/25/23
04:38 09:24 11:30
WBC 9.1
Hgb 13.5
Hct 38.4
Plt Count 180
PT 13.3
INR 1.03
APTT 31.4 Pending
Sodium 123 L Cancelled Pending
Potassium 4.2 Cancelled Pending
Chloride 91 L Cancelled Pending
Carbon Dioxide 25 Cancelled Pending
BUN 18 H Cancelled Pending
Creatinine 0.7 Cancelled Pending
Glucose 175 H Cancelled Pending
Calcium 9.5 Cancelled Pending
Total Bilirubin 0.6
AST 51 H
ALT 29
Alkaline Phosphatase 129 H
24 24 08
12:15 13:24 17:24
WBC
Hgb
Hct
Plt Count
PT
INR
APTT Cancelled
Sodium Cancelled Cancelled
Potassium Cancelled Cancelled
Chloride Cancelled Cancelled
Carbon Dioxide Cancelled Cancelled
BUN Cancelled Cancelled
Creatinine Cancelled Cancelled
Glucose Cancelled Cancelled
Calcium Cancelled Cancelled
Total Bilirubin
AST
ALT
Alkaline Phosphatase
11/25/23
21:24
WBC
Hgb
Hct
Plt Count
PT
INR
APTT
Sodium Cancelled
Potassium Cancelled
Chloride Cancelled
Carbon Dioxide Cancelled
BUN Cancelled
Creatinine Cancelled
Glucose Cancelled
Calcium Cancelled
Total Bilirubin
AST
ALT
Alkaline Phosphatase
Vital Signs:
Vital Signs
Temp Pulse Resp BP Pulse Ox
98.4 F 92 18 109/64 92
11/25/23 10:36 11/25/23 10:36 11/25/23 10:36 11/25/23 10:36 11/25/23 10:36
Review of Systems
-
History Source: Patient
All other systems: Reviewed and negative
Cardiac: Reports Chest Pain
Physical Exam
-
General: No Apparent Distress
HEENT: Normocephalic
Respiratory: Clear to Auscultation; Negative Wheezes, Rales or Rhonchi
GI: Soft, Nontender and Nondistended
Genito-urinary: No Costovertebral Tender
Musculoskeletal: No Clubbing, No Cyanosis and No Edema
Skin: Warm; Negative Dry or Rash
Neuro: Awake
Psych: Calm
[2023-11-25] MEDS: PROTONIX 40 MG PO (11:45)
[2023-11-25] MEDS: RANEXA EXTENDED RELEASE 500 MG PO ×2 (11:45→19:49)
[2023-11-25] MEDS: LEXAPRO 10 MG PO (11:45)
[2023-11-25] MEDS: PRAVACHOL 10 MG PO (11:46)
[2023-11-25] MEDS: DIFLUCAN 200 MG PO (11:46)
[2023-11-25] MEDS: OMNICEF 300 MG PO ×2 (11:46→19:49)
[2023-11-25] MEDS: SYNTHROID PO (11:48)
--- NOTE | 2023-11-25 13:06 | W.CON.NEPH ---
Consultation
-
Date/Time Consultation Requested: 11/25/23 1106
Date/Time Consultation Performed: 11/25/23 1800
Requesting Provider: Luis Schumacher
Performing Provider: Tonia Green
Reason for Consultation: hyponatremia
Medical History
-
Chief Complaint: CP
History of Present Illness:
Patient is a 68y F with PMH significant for ASCVD CABG, stents on ASA, plavix, imdur, and post-op sternum OM chronic suppression antimicrobials (cefdinir / Fluconazole)o, DM type 1 on insulin pump, HTN on low dose losartan, hypothyroidism on
Levothyroxine, ?depression on Lexapro, chronic hyponatremia follows nephro Dr Bliss who presents to ED complaining of chest pain and arm pain since last PM. Patient states that she started with L arm pain (near axilla / underarm area) around
11:30 PM. She took 3 SL NTG at home and her pain seemed to improve. She was not able to get to sleep however and the pain worsened again around 3 AM - this time accompanied by L sided chest pain as well. Patient took another 3 SL NTG; however,
the pain did not improve. Notably she felt diaphoretic and SOB en route to the hospital. Patient notes that these symptoms are typical anginal symptoms for her. She has experienced multiple cardiac events in the past and has had CABG x 2 as well as
11 coronary stents in total. Her most recent stent was in July of 2023 (@[facility] Patient states that the associated SOB and diaphoresis are unusual for her. On admit her sodium was 123 and nephrology requested to see her. She underwent LHC
today with stenting of diagonal branch. LVEDP 44. CXR showed pulm edema with high BNP. S/p 1 dose of lasix 40mg this Am. She offers no CAMACHO or dizziness. No active CP or sob. No orthopena. Recent LE edema. No n/v. Chr pain from L2 fracture since September
2023, currently wears brace. Oxy gave her severe constipation and U retention requiring admit at [facility] in September. No dysuria now.
Past Medical History
ASCVD
DM-I (Age 20)
Sternum Infection / Osteomyelitis s/p Multiple Surgeries and on Lifelong Abx
Hypertension
Hypothyroidism
GERD
Past Surgical History: Other (CABG x 2 Multiple Sternum Surgeries including Partial Sternum / Rib Resections, Debridement, etc PTCA with Stent (11 total, most recent July 2023))
Social History
Tobacco: Former Smoker (quit 30 yr ago)
Alcohol: Occasional
Drug: None
Personal:
Living: With Family
Family History
brother CAD
Allergies / Home Medications
Allergy/AdvReac Type Severity Reaction Status Date / Time
amlodipine Allergy Unknown Unknown Verified 11/25/23 04:26
ciprofloxacin Allergy Nausea / Verified 11/25/23 04:26
Vomiting
evolocumab Allergy Unknown Verified 11/25/23 04:26
[From Repatha Pushtronex]
rosuvastatin [From Crestor] Allergy Unknown Verified 11/25/23 04:26
sulfamethoxazole Allergy Nausea / Verified 11/25/23 04:26
[From Bactrim] Vomiting
tramadol Allergy Nausea / Verified 11/25/23 04:26
Vomiting
trimethoprim [From Bactrim] Allergy Nausea / Verified 11/25/23 04:26
Vomiting
cannabidiol (CBD) extract AdvReac Unknown Verified 11/25/23 04:26
�Medication �Instructions �Recorded �Confirmed �Type
Ca 600 mg-D3 800 unit-magnes 40 1 ea PO DAILY 09/18/21 11/25/23 History
ph-wogx-gfk-devonte-boron chewable
tablet (Caltrate 600-D Plus
Minerals)
aspirin 81 mg tablet,delayed 81 mg PO DAILY 09/18/21 11/25/23 History
release (Adult Aspirin Regimen)
biotin 1 mg tablet 1 mg PO DAILY 09/18/21 11/25/23 History
clopidogrel 75 mg tablet 75 mg PO DAILY 09/18/21 11/25/23 History
escitalopram oxalate 10 mg tablet 10 mg PO DAILY 09/18/21 11/25/23 History
ezetimibe 10 mg tablet 10 mg PO DAILY 09/18/21 11/25/23 History
levothyroxine 112 mcg tablet 112 mcg PO DAILY 09/18/21 11/25/23 History
losartan 25 mg tablet 25 mg PO DAILY 09/18/21 11/25/23 History
multivit with min-folic 1 ea PO DAILY 09/18/21 11/25/23 History
acid-lutein 200 mcg-137.5 mcg
chewable tablet
pantoprazole 40 mg tablet,delayed 40 mg PO DAILY 09/18/21 11/25/23 History
release
pravastatin 10 mg tablet 10 mg PO DAILY 09/18/21 11/25/23 History
CoQ-10 1 cap PO DAILY 11/25/23 11/25/23 History
cefdinir 300 mg capsule 300 mg PO BID 11/25/23 11/25/23 History
fluconazole 200 mg tablet 200 mg PO DAILY 11/25/23 11/25/23 History
isosorbide dinitrate 30 mg tablet 30 mg PO TID 11/25/23 11/25/23 History
ranolazine 500 mg tablet,extended 500 mg PO BID 11/25/23 11/25/23 History
release,12 hr
tramadol 37.5 mg-acetaminophen 325 1 tab PO TID PRN L2 compression fx 11/25/23 11/25/23 History
mg tablet
Review of Systems
-
All complete 12 point ROS have been inquired and found negative other than stated in HPI
Physical Exam
Vital Signs
Vital Signs
Temp Pulse Resp BP Pulse Ox
97.5 F 89 20 154/87 92
11/25/23 12:06 11/25/23 11:00 11/25/23 12:06 11/25/23 11:00 11/25/23 12:06
Lab Results
WBC 9.1 10^3/uL (4.8-10.8) 11/25/23 04:38
RBC 4.87 10^6/uL (4.20-5.40) 11/25/23 04:38
Hgb 13.5 g/dL (12.0-16.0) 11/25/23 04:38
Hct 38.4 % (37.0-47.0) 11/25/23 04:38
Plt Count 180 10^3/uL (130-400) 11/25/23 04:38
Sodium Cancelled 11/25/23 21:24
Potassium Cancelled 11/25/23 21:24
Chloride Cancelled 11/25/23 21:24
Carbon Dioxide Cancelled 11/25/23 21:24
BUN Cancelled 11/25/23 21:24
Creatinine Cancelled 11/25/23 21:24
eGFR Cancelled 11/25/23 21:24
Glucose Cancelled 11/25/23 21:24
Calcium Cancelled 11/25/23 21:24
Rgr-X-Sgjgemcwpvv Pept 2540 pg/ml 11/25/23 04:38
Albumin 4.4 g/dl (3.5-5.0) 11/25/23 04:38
echo;
CONCLUSIONS
Normal left ventricular size and wall thickness LAD regional wall motion
abnormality. With LV most vigorous at the base. Mid to distal inferior,
inferolateral hypokinesis. Mid to distal lateral wall hypokinesis, mid to
distal anterior wall hypokinesis likely. LV ejection fraction is 25-30% by
Lerma's method of discs. Stage II diastolic dysfunction suggestive of
abnormal relaxation and increased filling pressures.
Normal right ventricular size. Mildly reduced right ventricular systolic
function.
Mitral valve opens normally. Thickened mitral valve leaflets. Mild to moderate
mitral regurgitation.
Trileaflet aortic valve. Aortic sclerosis without stenosis. Mild aortic
regurgitation.
Tricuspid valve opens normally. Moderate to severe tricuspid regurgitation.
Estimated pulmonary artery pressure of 53-58 mmHg. Assuming a right atrial
pressure of 8 mmHg.
CXR:
IMPRESSION:
MODERATE ACUTE INTERSTITIAL CARDIOGENIC PULMONARY EDEMA.
Physical Exam
General: Awake, Alert, Oriented, AOx3, No Distress and Nontoxic
HEENT: EOMI and Anicteric
Respiratory: Clear (decreased), Normal Excursion and Nonlabored Respirations
Cardiac: S1/S2 and Regular Rate/Rhythm
Breast: Deferred by me
Abdomen: Soft, Nontender and Nondistended
Musculoskeletal: No Cyanosis and Edema (1+)
Skin: No Rash, Warm and Dry
Neuro: Nonfocal/Grossly Intact
Psych: Mood/afflect pleasant, Insight/judgement good and Appropriate
Data Reviewed
-
Radiology: Report Reviewed by me
Labs: Labs Reviewed by me, Discussed with Patient and Discussed with Family
Assessment/Plan
-
IMP:
ACS s/p Stent D branch 11/24
ASCVD
Acute systolic and diastolic CHF 25-30%
mild to mod MR
mod to severe TR
Acute on chronic Hyponatremia-follows Dr Bliss out pt
DM-I
Benign Hypertension
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
Hypothyroidism
PLan:
A/w ACS known complex CAD s/p stent today
hyponatremia-acute on chr likely exaggerated by CHF
may have underlying SIADH with SSRI use
check U studies
would continue lasix , recheck labs in am
maintain FR 40 ounces/day
prn samsca
TSH and cortisol were ok
BP stable
d/w pt and
d/w nursing
--- NOTE | 2023-11-25 13:15 | PTCARENOTE ---
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
[2023-11-25 13:32] LABS: APTT 171.5 Sec (23.4-35.0)
[2023-11-25 14:09] LABS: Blood Urea Nitrogen 19 mg/dl (7-17); Calcium 9.6 mg/dl (8.4-10.2); Carbon Dioxide 25 mmol/L (22-30); Chloride 90 mmol/L (98-107); Creatine Phosphokinase 904 U/L (30-135); Estimated Creatinine Clearance 70 ml/min; Glucose 169 mg/dl (70-99); Sodium 125 mmol/L (135-145); eGFR > 60.00
[2023-11-25] MEDS: MORPHINE SULFATE 2 MG IV (15:25)
[2023-11-25] MEDS: FLUSH (NSS) 1 FLUSH IV ×2 (15:26→16:24)
--- NOTE | 2023-11-25 15:26 | ITS.CL.CATH ---
Lamp Assembler - Catheterization
Cardiac Catheterization
Procedure Report:
LEFT HEART CATHETERIZATION AND CORONARY INTERVENTION
Date of Procedure: November 25, 2023
Referring: Dr. Allison Mosqueda
PROCEDURES:
1. Left heart catheterization with coronary and single-plane left ventriculography
2. Selective saphenous vein graft and EMANI angiography
INDICATION: This is a 68-year-old female with a prior history of coronary artery disease and multiple coronary stents. She underwent coronary artery bypass grafting on 03/08/2020 with GOYAL-LAD, SVG-PDA. Her postoperative course was complicated by
sternal wound infection with multiple procedures on lifelong antibiotic therapy. She has a past medical history notable for hypertension, hyperlipidemia, chronic diastolic heart failure, sarcoidosis, CKD, and diabetes mellitus with diabetic
retinopathy. She underwent successful stenting of a high-grade stenosis at the origin of the first diagonal branch with a 2.25 x 12 mm Synergy stent that was postdilated with a 2.25 mm noncompliant balloon
Approximately 2 months ago she experienced a lumbar fracture and her pain increased significantly several weeks ago.
She now presents to [facility] for evaluation of bilateral arm and substernal chest discomfort and ruled in for non-ST segment elevation myocardial infarction. An echocardiogram earlier today was notable for an estimated ejection fraction
of 25-30% mid to distal inferior, inferolateral, mid to distal lateral and mid to distal anterior hypokinesis. She is now referred for coronary angiography. Her most recent catheterization report and images were obtained from [facility]. The family reported that her LVEF had been normal in the past and estimated 55%.
ACCESS: Right common femoral artery, 6 [place] sheath
HEMODYNAMICS : (mmHg)
AO (s/d) : 116/64, 86
LV (s/d) : 130/22
LVEDP : 44
CORONARY ANGIOGRAPHY
Dominance: Right
LEFT MAIN: Normal
LEFT ANTERIOR DESCENDING: The LAD arises normally from the left main and runs in the anterior interventricular groove there are multiple stents from the origin through distal LAD and a stent in a small caliber first diagonal branch that has focal
70-80% stenosis in what appears to be an area of stent overlap. The remainder of the diagonal has luminal irregularities but no focal obstructive stenosis. There is competitive flow from a patent EMANI graft anastomosed to the distal LAD
CIRCUMFLEX: The circumflex arises normally from the left main and a terminal obtuse marginal branch has overlapping stents in its proximal to midportion it becomes 100% occluded as was noted on the most recent angiogram from 07/2023.
RIGHT CORONARY ARTERY: The right coronary artery is a dominant vessel that is 100% occluded proximally. The distal vessel was noted to fill via a widely patent saphenous vein graft
GRAFT ANGIOGRAPHY:
1. SVG-PDA: The saphenous vein graft to a large PDA is widely patent and fills retrograde to the distal LAD filling a large posterolateral branch. There are right to left collaterals noted to fill a terminal obtuse marginal branch of the
circumflex.
2. GOYAL-distal LAD: The GOYAL graft is a small to medium caliber vessel anastomosed to the apical LAD. There is antegrade and retrograde filling of the LAD and appears angiographically stable when compared to the most recent study from 07/2023
LEFT VENTRICULOGRAPHY: Left ventriculography was performed in an BAEZ projection. The digital single-plane left ventricular ejection fraction is visually estimated at 30% with mid to distal anterior, diaphragmatic inferior, and apical hypokinesis
ANGIOPLASTY PROCEDURE DETAIL: Upon review of the diagnostic catheterization the decision was made to proceed with percutaneous revascularization of the only vessel angiographically changed since the PCI in 2023. Intravenous heparin was
administered and the ACT was monitored throughout the procedure. A 300 mg loading dose of clopidogrel was administered earlier today and aspirin 81 mg has been given daily. The origin of the left main was cannulated with a 6 [place] EBU 3.5 guiding
catheter and a BMW guidewire crossed into the diagonal branch and beyond the stenotic segment.. Balloon predilation was performed with a 2.0 x 12 mm Euphora balloon and was followed by placement of a 2.0 x 12 mm Donald stent that was implanted at
nominal pressures and postdilated with a 2.25 mm noncompliant balloon to high pressures with an excellent angiographic result
RADIATION SUMMARY: Fluoro Time (min): 12.2, Dose (mGy): 421, DAP (Gy.cm2) : 26.1
Closure Device: 6 [place] Angio-Seal, RFA
CONCLUSION
1. Successful stenting of diagonal branch with a 2.0 x 12 mm [place] stent that was implanted at nominal pressures and postdilated with a 2.25 mm noncompliant balloon. The area of high-grade stenosis appeared to be in an area of stent overlap from
prior stenting of the diagonal branch. (I do not have access to full records to know prior diagonal stent history or LAD stent history).
2. Angiographically stable and patent GOYAL-LAD and SVG-PDA
3. Significant worsening of LV function when compared to prior echocardiogram ports from [facility]
RECOMMENDATIONS
1. Continue PHILIPPE inhibitor
2. Begin metoprolol XL 12.5 mg p.o. twice daily with hold parameters for heart rate and blood pressure
3. Continue to trend troponin
4. Guideline directed medical therapy for new LV dysfunction
Copy to: Dr. Allison Mosqueda, Dr. Mame Bardales: [facility] (Office: [phone])
--- NOTE | 2023-11-25 15:28 | PTCARENOTE ---
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 right groin dsg. intact, distal pulse palpable.
--- NOTE | 2023-11-25 15:34 | CM ---
spoke to pt in room, she is prev indep, lives with her husb in a 2 story home with 2 stepsto enter. she denies any dc planning needs or dme's. plan is for dc to home when medically stable.
--- NOTE | 2023-11-25 15:51 | W.PN.UPDATE ---
Update Note
Progress Note Update
Hx of L2 compression Fx on September 14 2023, recently, couple of weeks worsening of the pain, radiating to both hips to the point that patient could not move. Patient has spinal ortho appt,but now will have to reschedule
reasonable for advanced imaging, will schedule lumbar MRI for the next day
[2023-11-25] MEDS: SORBITRATE 30 MG PO (16:24)
[2023-11-25 16:28] LABS: Glucose - Point of Care 136 mg/dl (70-99)
[2023-11-25 16:29] LABS: Blood Urea Nitrogen 18 mg/dl (7-17); Calcium 8.9 mg/dl (8.4-10.2); Carbon Dioxide 27 mmol/L (22-30); Chloride 89 mmol/L (98-107); Estimated Creatinine Clearance 61 ml/min; Glucose 129 mg/dl (70-99); Potassium 4.4 mmol/L (3.5-5.1); Sodium 123 mmol/L (135-145); eGFR > 60.00
[2023-11-25] MEDS: PT'S OWN INSULIN PUMP - HumaLOG 8.2 UNIT SC (17:06)
--- NOTE | 2023-11-25 18:24 | PTCARENOTE ---
patient up OOB with assist of 1 ambulating to BR eliel. well. informed patient that I need a urine specimen,patient missed the hat, instructed patient next time she needs to void to please call. right groin shows scant amount of blood on dsg,no
hematoma,distal pulse palpable.
--- NOTE | 2023-11-25 19:28 | PTCARENOTE ---
Pt. received at change of shift. Pt. seen in room. Pt. AOx3, VS WNL. R femoral site with small bloody drainage in upper right corner, continuing to monitor site. Pt. w no complaints of pain at this time. Continuing to monitor the pt.
[2023-11-25] MEDS: TOPROL XL PO (19:48)
--- NOTE | 2023-11-25 20:15 | PTCARENOTE ---
BP retaken around 1949. Right arm reading 78/48, Left arm reading 85/54. Pt. saying she feels 'tired', but no other symptoms. Manual BP retaken, reading 94/52. House ACCOUNTS PAYABLE MANAGER aware. Advised to encourage patient to drink more water at this time. Continuing
to monitor BP at this time.
--- NOTE | 2023-11-25 20:54 | PTCARENOTE ---
1999 troponin resulted at 26, previously at 10.3. EKG done reading NSR with a prolonged QTC. EKG placed in patient's chart. CRAP GAME BOX PERSON notified. Awaiting orders and continuing to monitor the pt at this time.
[2023-11-25] MEDS: SORBITRATE PO (21:24)
[2023-11-25] MEDS: PT'S OWN INSULIN PUMP - HumaLOG 5.5 UNIT SC (21:27)
[2023-11-25 21:30] LABS: Hepatitis C Antibody Negative (Negative)
[2023-11-25 21:59] LABS: Osmolality Urine 340 mOsm/kg (300-900)
[2023-11-25 22:01] LABS: Glucose - Point of Care 142 mg/dl (70-99)
[2023-11-25 22:10] LABS: Urine Sodium 33 mmol/L (30-90)
--- NOTE | 2023-11-25 22:47 | PTCARENOTE ---
News Production Supervisor made aware of pt's low BP in the 80s-90s/50s and rising troponin. EKG sent. Losartan on hold. Isosorbide d/c'd per cardiology. Continuing to monitor pt/ now.
[2023-11-26] VITALS (23 sets, daily range): BP systolic 89–139; BP diastolic 50–85; PULSE 76–80; BMI 24.8; BMI 25.0
[2023-11-26] MEDS: MORPHINE SULFATE 2 MG IV ×2 (03:27→18:37)
[2023-11-26] MEDS: SYNTHROID 112 MCG PO (03:28)
[2023-11-26 04:32] LABS: % Basophils 0.6 % (0-2); % Eosinophils 0.3 % (0-6); % Immature Granulocytes 0.3 % (0-0.5); % Monocytes 12.3 % (1.7-9.3); % Neutrophils 72.5 % (42.2-75.2); Absolute Monocytes 0.9 10^3/uL (0.1-0.6); Absolute Neutrophils 5.2 10^3/uL (1.4-6.5); Hematocrit 37.1 % (37.0-47.0); Hemoglobin 13.3 g/dL (12.0-16.0); Mean Corp Hgb Conc. 35.8 g/dL (33.0-37.0); Mean Corpuscular Hgb 28.5 pg (27.0-31.0); Mean Corpuscular Volume 79.6 fL (81.0-99.0); Mean Platelet Volume 11.1 fL (7.4-10.4); Nucleated Red Blood Cells % 0 %; Platelet Count 134 10^3/uL (130-400); Red Blood Cell Count 4.66 10^6/uL (4.20-5.40); Red Cell Dist. Width 14.6 % (11.5-14.5); White Blood Cell Count 7.1 10^3/uL (4.8-10.8)
[2023-11-26 04:54] LABS: ALT (SGPT) 48 U/L (0-35); AST (SGOT) 233 U/L (14-36); Albumin 2.3 g/dl (3.5-5.0); Alkaline Phosphatase 103 U/L (38-126); Blood Urea Nitrogen 28 mg/dl (7-17); Calcium 9.1 mg/dl (8.4-10.2); Carbon Dioxide 26 mmol/L (22-30); Chloride 95 mmol/L (98-107); Estimated Creatinine Clearance 49 ml/min; Glucose 117 mg/dl (70-99); HDL Cholesterol 99 mg/dl; LDL Cholesterol, Calculated 47 mg/dl; Magnesium 2.1 mg/dl (1.6-2.3); Phosphorus 5.2 mg/dl (2.5-4.5); Potassium 4.5 mmol/L (3.5-5.1); Sodium 125 mmol/L (135-145); Total Bilirubin 0.5 mg/dl (0.2-1.3); Total Cholesterol 163 mg/dl (50-199); Total Protein 5.7 g/dl (6.3-8.2); Triglyceride 85 mg/dl (10-149); Very Low Density Lipoprotein 17 mg/dl (0-30); eGFR > 60.00
--- NOTE | 2023-11-26 05:11 | PTCARENOTE ---
4am troponin resulted as 27.5, previous troponin from 8pm was 26. Morning EKG completed. EKG remains unchanged reading NSR and placed in pt's chart. MD notified about the increasing troponin, awaiting orders. Pt's only complaint at this time is her
chronic back pain, pt. was given her PRN 2mg morphine. VS WNL, BP improved at 101/61. Continuing to monitor pt at this time.
[2023-11-26 07:28] LABS: Glucose - Point of Care 130 mg/dl (70-99)
[2023-11-26 07:45] LABS: ACT-LR - POC > 397 Seconds (116-155)
[2023-11-26 07:45] LABS: ACT-LR - POC > 397 Seconds (116-155)
--- NOTE | 2023-11-26 08:28 | PN.DE.MGMTRT ---
Insulin Management
- -
11/26/2023: Diabetes Management Consult Follow up
Patient admitted with chest pain. PMH: CAD with extensive prior cardiac stenting and CABG x2, chronic HFpEF, HTN, HLD, Hypothyroidism, GERD, Sarcoidosis, T1DM (since age 20), radial artery thrombosis and sternum Infection/Osteomyelitis s/p Multiple
Surgeries and on Lifelong Abx.
Pt uses Medtronic 680G with Guardian sensor novolog insulin and Quick Sets. She routinely sees Endo Dr. Harris Cazares in [place].
Pt is awake, A/O x3, sitting up in bed, able to discuss insulin pump and glucose control.
Had Cardiac Cath 11/24.
Pump settings as follows:
Basal 12am -12am 0.750
24 total basal 18 units.
[id number] - 12am 1:73
ICR
12am 1:6.5
11am 1:6
4 pm 1:6
7 pm 1:5.5
Target 85-120
Insulin duration time 2.5hrs
Patient states she prefers keeping her glucose levels >120 because she doesn't feel good when her sugars drop.
Pt is independent with managing the device at this time, discussed process of using insulin pump while in the hospital.
Explained and provided bedside worksheet.
Diabetes History
- -
Type of Diabetes: 1
Pre-Admission Diabetes Regimen
11/25/23 11/25/23 11/25/23
09:24 12:19 13:24
Creatinine Cancelled 0.7 Cancelled
11/25/23 11/25/23 11/25/23
14:03 16:00 17:24
Creatinine Cancelled 0.8 Cancelled
11/25/23 11/25/23 11/25/23
18:03 21:24 22:03
Creatinine Cancelled Cancelled Cancelled
11/26/23
03:52
Creatinine 1.0
Lab Results
Hemoglobin A1c 7.0 % (4.0-5.6) H 11/25/23 04:38
Insulin Pump Settings
IP Diabetes Regimen
11/25/23 11/25/23 11/25/23
09:24 12:19 13:24
Glucose Cancelled 169 H Cancelled
POC Glucose
11/25/23 11/25/23 11/25/23
14:03 16:00 16:26
Glucose Cancelled 129 H
POC Glucose 136 H
11/25/23 11/25/23 11/25/23
17:24 18:03 21:24
Glucose Cancelled Cancelled Cancelled
POC Glucose
11/25/23 11/25/23 11/26/23
21:59 22:03 03:52
Glucose Cancelled 117 H
POC Glucose 142 H
11/26/23
07:27
Glucose
POC Glucose 130 H
Meal type: Dinner
Meal type: Breakfast
Amount consumed: 100%
Amount consumed: 0
Patient Education
[2023-11-26] MEDS: PLAVIX 75 MG PO (08:35)
[2023-11-26] MEDS: RANEXA EXTENDED RELEASE 500 MG PO ×2 (08:35→19:59)
[2023-11-26] MEDS: PROTONIX 40 MG PO (08:35)
[2023-11-26] MEDS: ASPIR LOW (ENTERIC COATED) 81 MG PO (08:35)
[2023-11-26] MEDS: PRAVACHOL 10 MG PO (08:35)
[2023-11-26] MEDS: OMNICEF 300 MG PO ×2 (08:36→19:59)
[2023-11-26] MEDS: TOPROL XL 12.5 MG PO (08:36)
[2023-11-26] MEDS: DIFLUCAN 200 MG PO (08:36)
[2023-11-26] MEDS: LEXAPRO 10 MG PO (08:36)
[2023-11-26] MEDS: LASIX 40 MG IV ×2 (08:37→22:58)
[2023-11-26] MEDS: PT'S OWN INSULIN PUMP - HumaLOG 4.6 UNIT SC (08:37)
[2023-11-26 10:01] LABS: % Basophils 0.5 % (0-2); % Eosinophils 0.3 % (0-6); % Immature Granulocytes 0.3 % (0-0.5); % Lymphocytes 17.4 % (20.5-51.1); % Neutrophils 70.5 % (42.2-75.2); Absolute Lymphocytes 1.3 10^3/uL (1.2-3.4); Absolute Monocytes 0.8 10^3/uL (0.1-0.6); Absolute Neutrophils 5.2 10^3/uL (1.4-6.5); Hematocrit 36.9 % (37.0-47.0); Hemoglobin 12.7 g/dL (12.0-16.0); Mean Corp Hgb Conc. 34.4 g/dL (33.0-37.0); Mean Corpuscular Hgb 27.9 pg (27.0-31.0); Mean Corpuscular Volume 81.1 fL (81.0-99.0); Mean Platelet Volume 10.8 fL (7.4-10.4); Nucleated Red Blood Cells % 0 %; Platelet Count 141 10^3/uL (130-400); Red Blood Cell Count 4.55 10^6/uL (4.20-5.40); White Blood Cell Count 7.3 10^3/uL (4.8-10.8)
--- NOTE | 2023-11-26 10:10 | W.CARD.POSTP ---
Post PCI Follow Up
Procedure
Procedure/Date: 11/25/23- 70-80% stenosis in stent overlap in distal LAD and D1 with competitive flow from patent EMANI graft-distal LAD
s/p successful stenting of D1 with 2.0 x 12 mm [place] stent
Subjective: denies cp/palps/dyspnea
femoral cath site without pain
Site
Site: Femoral with Angioseal: Right and No ht/bleeding palpable
Tele / EKG
NSR 60-70s w/3bt NSVT
Labs
11/26/23 09:24
11/26/23 09:24
PT 13.3 Sec (11.4-14.6) 11/25/23 04:38
INR 1.03 11/25/23 04:38
APTT 171.5 Sec (23.4-35.0) H* 11/25/23 12:19
Magnesium 2.1 mg/dl (1.6-2.3) 11/26/23 03:52
Triglycerides 85 mg/dl (10-149) 11/26/23 03:52
LDL Cholesterol, Calc 47 mg/dl 11/26/23 03:52
VLDL Cholesterol, Calc 17 mg/dl (0-30) 11/26/23 03:52
HDL Cholesterol 99 mg/dl 11/26/23 03:52
11/25/23
04:38
Ceh-W-Ovgkvwpmmcq Pept 2540
Laboratory Tests
11/25/23 11/25/23 11/25/23
04:38 12:19 20:03
Troponin I 1.260 H* 10.300 H* D 26.000 H* D
11/26/23 11/26/23
03:52 09:24
Troponin I 27.500 H* 23.400 H*
DAPT Medication
DAPT Medication: Aspirin 81mg daily and Clopidogrel 75 mg daily
Plan
Troponin peak 27.5, will get one more at 4pm per Dr. Dsouza
DAPT w/asa, plavix as before
cardiac rehab
Cardiology followup- 12/18 @ 8:20am w/JUAN Orozco
[2023-11-26 10:20] LABS: Blood Urea Nitrogen 31 mg/dl (7-17); Calcium 8.9 mg/dl (8.4-10.2); Carbon Dioxide 29 mmol/L (22-30); Chloride 91 mmol/L (98-107); Estimated Creatinine Clearance 45 ml/min; Glucose 208 mg/dl (70-99); Potassium 5.4 mmol/L (3.5-5.1); Sodium 124 mmol/L (135-145); eGFR 54.06
--- NOTE | 2023-11-26 10:23 | W.PN.CARDCBS ---
Today's Communication / Plan
-
Plan:
-Hyponatremia:
defer workup to Hospitalist and/or nephrology
LVEDP is quite elevated 44 mmhg : on iv diuresis
-NSTEMI s/p stent of diagonal branch beyond prior stent from 07/2023 for treatment of 80% stenosis: Troponin peaked at 27.5 ng/ml
Continue aspirin and clopidogrel
Would have a very high bar to discontinue the clopidogrel. She may be considered for life-long dual antiplatelet
-New LV dysfunction: Reported EF of 50% by prior [place] echocardiogram
Continue losartan
Metoprolol XL started low dose yesterday with plans for gradual titration
Continue IV furosemide bid as she was quite volume overloaded
Would hold on SGLT2 inhibitor given TYPE 1 diabetes (age 20) and increased risk for euglycemic DKA with this class of medications.
Hold on spironolactone
-Severe back discomfort
Awaiting repeat imaging
-Hyperlipidemia
On pravastatin 10mg daily. Reported intolerance to higher doses of statin and inability to tolerate Repatha
LDL measured 47 mg/dl
-Elevated LFT's
should have repeat studies.
Impression / Plan
-
PCP: Dr. Caitie Laird
Hollow Tile Partition Erector: Dr. Mame Badrales ([facility])
Impression:
-Presented with chest pain
-Elevated troponin, NSTEMI: Peak troponin 27.5 ng/ml.
-Hyponatremia
-HFrEF : EF 25-30% by ventriculography and by echocardiogram
-Severe back discomfort
-CAD
h/o (now) 12 coronary stents
s/p CABG x 2 (GOYAL to LAD, SVG to RPDA) 03/11/2020
s/p PCI of D1 07/29/2023 and stenting at distal edge of prior stent with a 2.25 x 12 mm [place] stent
-HTN
-HLD
-Type I DM
-h/o lung sarcoidosis
-CKD 3
-h/o chronic sternal osteomyelitis
on chronic cefdinir/fluconazole
-h/o radial artery thrombosis
-Hypothyroidism
Echo 03/09/2020: EF 60 to 65%, mild AI, trace TR,
Echo 11/25/2023: Study completed, report pending
Plan:
-Hyponatremia:
defer workup to Hospitalist and/or nephrology
LVEDP is quite elevated 44 mmhg : on iv diuresis
-NSTEMI s/p stent of diagonal branch beyond prior stent from 07/2023 for treatment of 80% stenosis: Troponin peaked at 27.5 ng/ml
Continue aspirin and clopidogrel
Would have a very high bar to discontinue the clopidogrel. She may be considered for life-long dual antiplatelet
-New LV dysfunction: Reported EF of 50% by prior [place] echocardiogram
Continue losartan
Metoprolol XL started low dose yesterday with plans for gradual titration
Continue IV furosemide bid as she was quite volume overloaded
Would hold on SGLT2 inhibitor given TYPE 1 diabetes (age 20) and increased risk for euglycemic DKA with this class of medications.
Hold on spironolactone
-Severe back discomfort
Awaiting repeat imaging
-Hyperlipidemia
On pravastatin 10mg daily. Reported intolerance to higher doses of statin and inability to tolerate Repatha
LDL measured 47 mg/dl
-Elevated LFT's
should have repeat studies.
-Spent 55 minutes with patient and discussing heart failure, arrived and discussed plans with him as well. I called and spoke with her regular flight security specialist; Dr. Vilchis
HPI: Jessica is a 68 year old female with PMH of CAD with extensive prior cardiac stenting and CABG x2, chronic HFpEF, HTN, HLD, type 1 DM, sarcoidosis, sternal osteomyelitis, and radial artery thrombosis who presented to [facility] for evaluation of chest
pain. She started with chest pain last evening and took a SL nitro which relieved her pain initially. She then went to bed, but again woke up around 4 AM with recurrent chest pain with radiation into her arm. She again took SL nitro, however this
did not relieve her pain. She came to [facility] for evaluation as she states these symptoms are consistent with her prior angina. On arrival to [facility], she was noted to have elevated troponin of 1.26. She was started on IV heparin and given SL nitro, but
continued to have chest pain and arm pain, so she was started on IV nitro. She reports since starting IV nitro, her chest pain has resolved, but she continues to have L arm pain. Echo being completed during interview. She also had elevated troponin
of 2540 and chest xray showed pulmonary edema. Cardiology consulted for evaluation given chest pain with significant coronary disease history.
Progress Note - Hollow Tile Partition Erector
Subjective
Date of Service: November 26, 2023
Complaining of severe back discomfort. Little to no chest / armpit discomfort
Total Time Spent with Patient (in minutes): 50min
Objective
Labs:
11/26/23 09:24
11/26/23 09:24
Labs
Hgb 12.7 g/dL (12.0-16.0) 11/26/23 09:24
Hct 36.9 % (37.0-47.0) L 11/26/23 09:24
Plt Count 141 10^3/uL (130-400) 11/26/23 09:24
PT 13.3 Sec (11.4-14.6) 11/25/23 04:38
INR 1.03 11/25/23 04:38
APTT 171.5 Sec (23.4-35.0) H* 11/25/23 12:19
Sodium 124 mmol/L (135-145) L 11/26/23 09:24
Potassium 5.4 mmol/L (3.5-5.1) H 11/26/23 09:24
BUN 31 mg/dl (7-17) H 11/26/23 09:24
Creatinine 1.1 mg/dL (0.6-1.0) H 11/26/23 09:24
Glucose 208 mg/dl (70-99) H 11/26/23 09:24
Troponins
11/25/23 11/25/23 11/25/23
04:38 09:23 12:19
Troponin I 1.260 H* Cancelled 10.300 H* D
11/25/23 11/25/23 11/25/23
15:23 17:30 20:03
Troponin I Cancelled Cancelled 26.000 H* D
11/25/23 11/25/23 11/26/23
21:23 23:59 03:52
Troponin I Cancelled Cancelled Cancelled
11/26/23 11/26/23
03:52 09:24
Troponin I 27.500 H* 23.400 H*
Vital Signs and I&O:
Vital Signs
Temp Pulse Resp BP Pulse Ox
97.6 F 71 16 102/62 99
11/26/23 07:12 11/26/23 09:00 11/26/23 07:12 11/26/23 07:12 11/26/23 07:12
Vital Signs
Temp Pulse Resp BP Pulse Ox
97.6 F 71 16 102/62 99
11/26/23 07:12 11/26/23 09:00 11/26/23 07:12 11/26/23 07:12 11/26/23 07:12
Intake & Output
11/23/23 11/24/23 11/25/23 11/26/23
23:59 23:59 23:59 23:59
Intake Total 610 / 610
Output Total 950 / 950
Balance -340 / -340
Physical Exam
Physical Exam
GEN: Complaining of severe back discomfort wincing in pain when I sat on the bed
HEENT: NC/AT, sclera anicteric
Lungs: Clear anterior and lateral
CV: RRR with I/ murmur USB and LLSB
Ext: No edema
[2023-11-26] MEDS: FLEXERIL 5 MG PO (10:34)
--- NOTE | 2023-11-26 11:03 | W.PN.HOSP.TC ---
Addendum entered and electronically signed by Osmin Reyes MD 11/26/23 18:46:
Reviewed MRI results of the back
Addendum entered and electronically signed by Osmin Reyes MD 11/26/23 18:46:
Discussed with nephrology-will decrease Celexa to 5 mg daily
Add lidocaine patch and change morphine to Dilaudid
Repeat LFTs and check ultrasound of the liver
ID eval in the setting of renal failure and elevated LFTs with treatment of sternal infection.
Discussed with cardio.
Original Note:
Today's Communication/Plan
-
MRI of the back. Monitor hemodynamic and repeat labs today.
Assessment / Plan
Assessment / Plan
Physical exam:
General: Acutely ill
HEENT: Normocephalic, Atraumatic and Moist Mucous Membranes
Respiratory: Clear to Auscultation; Negative Wheezes, Rales or Rhonchi
Cardiac: Regular Rhythm and S1/S2
GI: Soft, Nontender and Nondistended
Musculoskeletal: Decreased range of motion in the back. Tenderness in the back. No Clubbing, No Cyanosis and No Edema
Neuro: Awake, Alert and Oriented
Psych: Calm
A/P:
NSTEMI:
Status postcardiac cath on 11/24
Successful stenting of diagonal branch
Continue dual antiplatelet therapy aspirin and Plavix
Started on metoprolol XL since yesterday
On statins
On Ranexa
Continue cardiac monitoring
Cardiology consult and follow-up appreciated
Hypotension:
Probably medications related but rule out sepsis or cardiogenic related
Further images for vascular perspective if remains hypotensive
Obtain blood cultures and lactic acid and regular labs today
Was planning on doing a CTA but cardiology recommends to hold off--> blood pressure seems to be improving though.
Shortness of breath:
Could be related to underlying exacerbated CHF status
Obtain updated chest x-ray
Obtain a BNP
Was planning on doing a CTA but cardiology recommends to hold off.
Acute systolic congestive heart failure:
IV diuretics, Lasix 40 mg twice a day
BNP upon admission
Monitor strict I/O
Monitor daily weight
Monitor renal function and electrolytes
Reviewed latest echocardiogram on our system
Continue guideline-directed medical therapy for heart failure (GDMT)
Fluid restriction
Salt restriction
Heart failure education
Follow up clinical response
Severe hyponatremia:
Monitoring sodium closely
Nephrology following
Probably start Samsca if not improvement
Chronic sternal osteomyelitis:
On oral cefdinir and fluconazole
Repeat cultures and probably images as needed
Acute on chronic back pain:
Continue pain meds and add Flexeril
Plan for MRI of the lumbar area
Diabetes mellitus type 1:
Continue diabetic diet
Some episodes of relative hypoglycemia so continue insulin pump but monitor sugars closely
Hypothyroidism:
Continue thyroid replacement
Elevated LFTs:
Monitor trend
DVT prophylaxis:
SCDs
Start pharmacological prophylaxis with Lovenox
CODE STATUS:
Full code
Total time spent on today's encounter was 52 minutes which included time spent in counseling the patient/family regarding diagnosis and treatment plan as listed above, goals of care, and symptom management. Case was discussed with nursing staff,
specialists, and care coordinators/case management. All labs and imaging personally reviewed by me. Remainder the time spent in detailed review of previous records, lab data, imaging, and other medical provider documentation.
Anticipated Discharge: > 48 hours
Subjective/Interval History
-
Date of Service: November 26, 2023
Patient still complains of back pain. In early afternoon she was feeling more short of breath and chest pain and hypotensive but this was transient and felt better and blood pressure improved.
Objective Data
-
Labs:
Laboratory Results
11/26/23 11/26/23
03:52 09:24
WBC 7.1 7.3
Hgb 13.3 12.7
Hct 37.1 36.9 L
Plt Count 134 D 141
Sodium 125 L 124 L
Potassium 4.5 5.4 H
Chloride 95 L 91 L
Carbon Dioxide 26 29
BUN 28 H 31 H
Creatinine 1.0 1.1 H
Glucose 117 H 208 H
Calcium 9.1 8.9
Total Bilirubin 0.5
AST 233 H
ALT 48 H
Alkaline Phosphatase 103
Vital Signs:
Vital Signs
Temp Pulse Resp BP Pulse Ox
97.6 F 71 16 102/62 99
11/26/23 07:12 11/26/23 09:00 11/26/23 07:12 11/26/23 07:12 11/26/23 07:12
I&O
11/25/23 11/26/23 11/27/23
06:59 06:59 06:59
Intake Total 610 / 610
Output Total 950 / 950
Balance -340 / -340
[2023-11-26 11:48] LABS: Glucose - Point of Care 95 mg/dl (70-99)
--- NOTE | 2023-11-26 11:52 | PTCARENOTE ---
Pt having intermittent back spasms with movt, rates pain 8/10. Pt stated last dose of morphine really didn't help her pain. Dr melo notified, Flexeril 5 mg po ordered and given.
--- NOTE | 2023-11-26 12:01 | W.PN.NEPH.PH ---
Today's Communication / Plan
-
cont lasix
samsca if sodium no improvement on repeat
Assessment/Plan
-
IMP:
ACS s/p Stent D branch 11/24
ASCVD
Acute systolic and diastolic CHF 25-30%
mild to mod MR
mod to severe TR
Acute on chronic Hyponatremia-follows Dr Bliss out pt
DM-I
Benign Hypertension
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
Hypothyroidism
PLan:
A/w ACS known complex CAD s/p stent 11/24
hyponatremia-acute on chr likely exaggerated by CHF
may have underlying SIADH with SSRI use, recent back pain
U osmo 340, U na relatively low 33
would continue lasix , recheck labs later
maintain FR 40 ounces/day
If repeat sodium not improving likely try samsca
TSH and cortisol were ok
BP stable
back pain-ok for muscle relaxers, reports tried other meds with out success
d/w pt and
d/w nursing
-
-
Date of Service: November 26, 2023
CC / HPI / ROS
-
Chief Complaint:
hyponatremia
History of Present Illness:
sodium slightly better at 124 but fluctuating 123-125
BP are soft, k is high 5.4
cr at 1.1
Review of Systems:
no cp or sob at rest
has back pain from recent L2 fx
Labs
-
Labs:
WBC 7.3 10^3/uL (4.8-10.8) 11/26/23 09:24
RBC 4.55 10^6/uL (4.20-5.40) 11/26/23 09:24
Hgb 12.7 g/dL (12.0-16.0) 11/26/23 09:24
Hct 36.9 % (37.0-47.0) L 11/26/23 09:24
Plt Count 141 10^3/uL (130-400) 11/26/23 09:24
Sodium 124 mmol/L (135-145) L 11/26/23 09:24
Potassium 5.4 mmol/L (3.5-5.1) H 11/26/23 09:24
Chloride 91 mmol/L (98-107) L 11/26/23 09:24
Carbon Dioxide 29 mmol/L (22-30) 11/26/23 09:24
BUN 31 mg/dl (7-17) H 11/26/23 09:24
Creatinine 1.1 mg/dL (0.6-1.0) H 11/26/23 09:24
eGFR 54.06 11/26/23 09:24
Glucose 208 mg/dl (70-99) H 11/26/23 09:24
Calcium 8.9 mg/dl (8.4-10.2) 11/26/23 09:24
Phosphorus 5.2 mg/dl (2.5-4.5) H 11/26/23 03:52
Rda-Q-Cznxsmapkwi Pept 2540 pg/ml 11/25/23 04:38
Albumin 2.3 g/dl (3.5-5.0) L D 11/26/23 03:52
Physical Exam
-
Vital Signs:
Vital Signs
Temp Pulse Resp BP Pulse Ox
97.5 F 67 16 102/62 97
11/26/23 11:38 11/26/23 11:38 11/26/23 11:38 11/26/23 07:12 11/26/23 11:38
Cardiovascular:: Regular rate and rhythm
Respiratory:: Bilateral: Rales (at bases)
Lung Excursion:: Normal
Abdomen:: Nontender and Soft
Extremity Edema:: +1: Bilateral: (trace)
Browning Catheter: No
[2023-11-26] MEDS: PT'S OWN INSULIN PUMP - HumaLOG 6.5 UNIT SC (12:39)
--- NOTE | 2023-11-26 14:15 | W.PN.UPDATE ---
Addendum entered and electronically signed by Daquan Dsouza MD 11/26/23 14:38:
Attending addendum: Called to see patient who was complaining of chest discomfort. She was uncomfortable 8/10 intensity in mid sternum and back. We were planning to do CT angiogram to exclude dissection. Catheterization yesterday was
uncomplicated and did not feel other significant vascular territories were at risk. She became nauseated and vomited a copious amount of food afterwards she stated her discomfort had resolved and she was feeling better. Will hold on CTA for now
and proceed with MRI if stable for the next 30 - 60 min.
Original Note:
Update Note
Progress Note Update
CTSP due to c/o chest discomfort. describes as 9/10 with radiation to back. higher than her chronic back pain. also with hypotension throughout most of morning. complains of feeling warm and with nausea. EKGs without significant change compared to
prior. will order chest CTA. hospitalist informed by nursing and repeat blood work ordered. d/w at bedside. will continue to monitor closely.
--- NOTE | 2023-11-26 15:03 | PTCARENOTE ---
Pt reported not feeling well this afternoon, BP 90/54. Pt c/o L chest pain, radiating to back, rated 9/10, nausea and some SOB. EKG obtained, Katerin Rodriguez, Dr Reyes and Dr Dsouza aware, labs ordered. Pt then vomited large amt, undigested food, she
had eaten lunch. Katerin Rodriguez and Dr Dsouza came to see Pt. Pt gradually felt much better after vomiting, her chest pain relieved. She went for MRI.
[2023-11-26 15:13] LABS: % Basophils 0.6 % (0-2); % Eosinophils 0.3 % (0-6); % Immature Granulocytes 0.4 % (0-0.5); % Lymphocytes 18.3 % (20.5-51.1); % Monocytes 10.6 % (1.7-9.3); % Neutrophils 69.8 % (42.2-75.2); Absolute Basophils 0.1 10^3/uL (0-0.2); Absolute Lymphocytes 1.5 10^3/uL (1.2-3.4); Absolute Monocytes 0.9 10^3/uL (0.1-0.6); Absolute Neutrophils 5.6 10^3/uL (1.4-6.5); Hematocrit 36.1 % (37.0-47.0); Hemoglobin 12.7 g/dL (12.0-16.0); Mean Corp Hgb Conc. 35.2 g/dL (33.0-37.0); Mean Corpuscular Volume 79.7 fL (81.0-99.0); Nucleated Red Blood Cells % 0 %; Platelet Count 138 10^3/uL (130-400); Red Blood Cell Count 4.53 10^6/uL (4.20-5.40); Red Cell Dist. Width 15.5 % (11.5-14.5)
[2023-11-26 15:25] LABS: Lactic Acid 4.4 mmol/L (0.7-2.0)
[2023-11-26 16:22] LABS: ALT (SGPT) 102 U/L (0-35); AST (SGOT) 328 U/L (14-36); Albumin 3.8 g/dl (3.5-5.0); Alkaline Phosphatase 115 U/L (38-126); Blood Urea Nitrogen 38 mg/dl (7-17); Calcium 9.7 mg/dl (8.4-10.2); Carbon Dioxide 27 mmol/L (22-30); Chloride 91 mmol/L (98-107); Estimated Creatinine Clearance 33 ml/min; Glucose 65 mg/dl (70-99); Potassium 5.1 mmol/L (3.5-5.1); Sodium 126 mmol/L (135-145); Total Bilirubin 0.5 mg/dl (0.2-1.3); eGFR 37.26
[2023-11-26 16:23] LABS: Ammonia < 9 umol/L (9-30)
[2023-11-26 16:37] LABS: NT-proBNP > 27000 pg/ml
[2023-11-26 16:52] LABS: Procalcitonin 0.09 ng/ml (0.0-0.25)
[2023-11-26] MEDS: LASIX IV (16:57)
[2023-11-26 17:20] LABS: Glucose - Point of Care 104 mg/dl (70-99)
[2023-11-26] MEDS: PT'S OWN INSULIN PUMP - HumaLOG SC ×2 (18:25→22:21)
--- NOTE | 2023-11-26 18:25 | PTCARENOTE ---
Pt has no appetite and did not eat dinner, no insulin given by Pt via her pump. accucheck 104
[2023-11-26] MEDS: LOVENOX 40 MG SC (18:34)
[2023-11-26] MEDS: LIDOCAINE 4% PATCH 1 PATCH TOPICAL (19:58)
[2023-11-26 20:57] LABS: Lactic Acid 3.3 mmol/L (0.7-2.0)
[2023-11-26 21:08] LABS: Glucose - Point of Care 233 mg/dl (70-99)
--- NOTE | 2023-11-26 21:09 | W.PN.ANESINT ---
Anesthesia Intubation Note
- Intubation Note
Intubation Note:
Diagnosis: Code 9
Blade: [place] 4
Tube Size: 8.0 ETT
Depth: 22 cm at right lip
Side Taped: right
Drugs Used: Propofol 100 mg
Grade View: Grade 1
EtCO2 Present: Yes, + ETCO2
Atraumatic: yes
Attempts: 1
Insertion Start and Stop Time:
SaO2 Pre: 85
SaO2 Post: 90
Glidescope Used: yes
Other Airway Adjustments:
Pre-Oxygenated: O2 ambu by respiratory on arrival
Portable Chest X-Ray: pending
RSI:
Suctioned:
Bilateral Breath Sounds Confirmed: yes
Vent Settings: left in care of code team and ICU hospitalist
Settings per ___Attending Physician
--- NOTE | 2023-11-26 21:47 | W.PN.CARDCBS ---
Today's Communication / Plan
-
Cont IV Dopamine and wean next 24 hrs
No beta ingrid
Trend trop and monitor lytes and EKG
Impression / Plan
-
.
PCP: Dr. Caitie Laird
Sap Functional Analyst: Dr. Mame Bardales ([facility])
Impression:
-Presented with chest pain
-Episode of severe bradycardia and complete heart block.
-VDRF, intubated during episode.
-Elevated troponin, NSTEMI: Peak troponin 27.5 ng/ml.
-Hyponatremia
-HFrEF : EF 25-30% by ventriculography and by echocardiogram
-Severe back discomfort with fractures
-CAD
h/o (now) 12 coronary stents
s/p CABG x 2 (GOYAL to LAD, SVG to RPDA) 03/11/2020
s/p PCI of D1 07/29/2023 and stenting at distal edge of prior stent with a 2.25 x 12 mm [place] stent
-HTN
-HLD
-Type I DM
-h/o lung sarcoidosis
-CKD 3
-h/o chronic sternal osteomyelitis
on chronic cefdinir/fluconazole
-h/o radial artery thrombosis
-Hypothyroidism
Echo 03/09/2020: EF 60 to 65%, mild AI, trace TR,
Echo 11/25/2023: Study completed, report pending
Plan:
Episode of significant bradycardia with episode of complete heart block. Per code team, pt did not completely lose pulse or pressure but became unresponsive.
Did not respond to atropine but did respond to IV Dopamine. Intubated during episode. Continue vent overnight and work on weaning in AM
Discussed with interventional cardiology who spoke with outside fire official. Pt with hx of profound bradycardia with beta ingrid in the past and almost required pacer
Continue IV Dopamine and wean next 24 hrs
Avoid beta ingrid
Trend troponin.
Monitor EKG and lytes, currently pending.
Of note, pt has been on chronic Diflucan for chronic wound infection. Will update ID.
Family has been updated.
Re:
-Hyponatremia:
defer workup to Hospitalist and/or nephrology
LVEDP was elevated 44 mmHg : on iv diuresis
-NSTEMI s/p stent of diagonal branch beyond prior stent from 07/2023 for treatment of 80% stenosis: Troponin peaked at 27.5 ng/ml
Continue aspirin and clopidogrel
She may be considered for life-long dual antiplatelet
-New LV dysfunction: Reported EF of 50% by prior [place] echocardiogram
Continue losartan as bp will allow.
STOP Metoprolol XL given intolerance and episode.
Continue IV furosemide bid for now, with cr rising may be able to transition dose down.
Would hold on SGLT2 inhibitor given TYPE 1 diabetes (age 20) and increased risk for euglycemic DKA with this class of medications.
Hold on spironolactone
-Severe back discomfort
Evidence of endplate fractures as per MRI.Eval as per primary services.
-Hyperlipidemia
Hold pravastatin for now with Reported intolerance to higher doses of statin and inability to tolerate Repatha
LDL measured 47 mg/dl
-Elevated LFT's
should have repeat studies.
CCT: 63 minutes
HPI: Jessica is a 68 year old female with PMH of CAD with extensive prior cardiac stenting and CABG x2, chronic HFpEF, HTN, HLD, type 1 DM, sarcoidosis, sternal osteomyelitis, and radial artery thrombosis who presented to [facility] for evaluation of chest
pain. She started with chest pain last evening and took a SL nitro which relieved her pain initially. She then went to bed, but again woke up around 4 AM with recurrent chest pain with radiation into her arm. She again took SL nitro, however this
did not relieve her pain. She came to [facility] for evaluation as she states these symptoms are consistent with her prior angina. On arrival to [facility], she was noted to have elevated troponin of 1.26. She was started on IV heparin and given SL nitro, but
continued to have chest pain and arm pain, so she was started on IV nitro. She reports since starting IV nitro, her chest pain has resolved, but she continues to have L arm pain. Echo being completed during interview. She also had elevated troponin
of 2540 and chest xray showed pulmonary edema. Cardiology consulted for evaluation given chest pain with significant coronary disease history.
Progress Note - Sap Functional Analyst
Subjective
Date of Service: November 26, 2023
Pt seen and examined. sedated on vent
Objective
Labs:
Labs
Hgb 12.7 g/dL (12.0-16.0) 11/26/23 14:43
Hct 36.1 % (37.0-47.0) L 11/26/23 14:43
Plt Count 138 10^3/uL (130-400) 11/26/23 14:43
PT 13.3 Sec (11.4-14.6) 11/25/23 04:38
INR 1.03 11/25/23 04:38
APTT 171.5 Sec (23.4-35.0) H* 11/25/23 12:19
Sodium 126 mmol/L (135-145) L 11/26/23 15:47
Potassium 5.1 mmol/L (3.5-5.1) 11/26/23 15:47
BUN 38 mg/dl (7-17) H 11/26/23 15:47
Creatinine 1.5 mg/dL (0.6-1.0) H 11/26/23 15:47
Glucose 65 mg/dl (70-99) L 11/26/23 15:47
Troponins
11/25/23 11/25/23 11/25/23
04:38 09:23 12:19
Troponin I 1.260 H* Cancelled 10.300 H* D
11/25/23 11/25/23 11/25/23
15:23 17:30 20:03
Troponin I Cancelled Cancelled 26.000 H* D
11/25/23 11/25/23 11/26/23
21:23 23:59 03:52
Troponin I Cancelled Cancelled Cancelled
11/26/23 11/26/23 11/26/23
03:52 04:00 09:24
Troponin I 27.500 H* Cancelled 23.400 H*
11/26/23 11/26/23 11/26/23
14:43 15:47 15:47
Troponin I Cancelled Cancelled 24.200 H*
11/26/23
20:15
Troponin I 18.500 H*
Vital Signs and I&O:
Vital Signs
Temp Pulse Resp BP Pulse Ox
97.4 F 63 18 108/53 100
11/26/23 19:43 11/26/23 20:00 11/26/23 19:43 11/26/23 19:48 11/26/23 21:30
Vital Signs
Temp Pulse Resp BP Pulse Ox
97.4 F 63 18 108/53 100
11/26/23 19:43 11/26/23 20:00 11/26/23 19:43 11/26/23 19:48 11/26/23 21:30
Intake & Output
11/24/23 11/25/23 11/26/23 11/27/23
06:59 06:59 06:59 06:59
Intake Total 610 / 610
Output Total 950 / 950 575 / 575
Balance -340 / -340 -575 / -575
Physical Exam
Physical Exam
General: sedated on vent
Neck: Negative JVD
Heart: Regular, Negative S3 positive S1/S2, Negative S4, No murmur
Lungs: CTA b/l, negative wheezes/rales/rhonchi
Abd: Positive BS, NT/ND, neg rebound/rigidity/guarding
Ext: Negative cyanosis/clubbing/edema
Neuro: nonfocal
[2023-11-26 22:01] LABS: Hematocrit 32.9 % (37.0-47.0); Hemoglobin 11.7 g/dL (12.0-16.0); Mean Corp Hgb Conc. 35.6 g/dL (33.0-37.0); Mean Corpuscular Hgb 28.1 pg (27.0-31.0); Mean Corpuscular Volume 78.9 fL (81.0-99.0); Mean Platelet Volume 11.1 fL (7.4-10.4); Platelet Count 142 10^3/uL (130-400); Red Blood Cell Count 4.17 10^6/uL (4.20-5.40); White Blood Cell Count 7.2 10^3/uL (4.8-10.8)
--- NOTE | 2023-11-26 22:05 | W.PN.UPDATE ---
Update Note
Progress Note Update
-came in emergently for code at 8:45 pm. Pt was significantly bradycardic with hr high 20s-low 30s, hypotensive, hypoxic. She never lost pulse and didn't require CPR. She initially didn't respond to voice, but within a minute, was able to respond to
my voice. 1 mg of Atropine was given and IVF started. Heart rate didn't respond to Atropine and external pacing was started at 80. Dopamine was started at 10 mcg/kg/min and rhythm improved to nsr with intermittent 2:1 AVB. ECG was without change
from prior. BG was 233. Pt was sedated and intubated. She was transferred to ICU.
-Will check bloodwork, ABG.
-Dr. Braga was notified.
--- NOTE | 2023-11-26 22:08 | PTCARENOTE ---
Pt. received at change of shift. Pt. seen and assessed in room with at bedside. VS WNL, tele strip reading NSR with a sinus arrhythmia, strip placed in patient's chart. Pt. AOx3 only complaint regarding 7/10 back pain which she had been
given morphine for on the previous shift. RN able to do scheduled blood work. Around 2049 the tele monitor alarm asystole. Pt. in room appearing to be seizing and unresponsive. Code 9 called. Pt. found to be in complete heart block. 1mg Atropine
given and began pacing in room. EKG done and in patient's chart. Decision made to transfer pt to ICU for closer monitoring. Report given to Cortney in ICU.
[2023-11-26 22:10] LABS: APTT 32.9 Sec (23.4-35.0)
--- NOTE | 2023-11-26 22:10 | RESPNOTE ---
pt intubated in IVU after code 9 called. transported to ICU without incident.
[2023-11-26 22:13] LABS: Lactic Acid 2.8 mmol/L (0.7-2.0)
[2023-11-26 22:22] LABS: Triglycerides 77 mg/dl (10-149)
[2023-11-26 22:25] LABS: ALT (SGPT) 297 U/L (0-35); AST (SGOT) 523 U/L (14-36); Albumin 3.5 g/dl (3.5-5.0); Alkaline Phosphatase 123 U/L (38-126); Blood Urea Nitrogen 41 mg/dl (7-17); Calcium 8.5 mg/dl (8.4-10.2); Carbon Dioxide 22 mmol/L (22-30); Chloride 90 mmol/L (98-107); Estimated Creatinine Clearance 38 ml/min; Glucose 295 mg/dl (70-99); Potassium 5.9 mmol/L (3.5-5.1); Sodium 120 mmol/L (135-145); Total Protein 5.7 g/dl (6.3-8.2); eGFR 44.24
--- NOTE | 2023-11-26 22:30 | W.PN.UPDATE ---
Update Note
Progress Note Update
11/26/23
2044- Code 9 called for patient unresponsiveness and severe bradycardia. Heart rate 20-30s, bradycardic and 1mg of atropine given with no response to heart rate. Determined rhythm, 3rd degree heart block. Pacing pads placed on patient and pacing
started with capture at rate of 60 and mmA 60. Patient was mumbling/moaning minimally arousable, at no time was pulse lost or CPR initiated. Decision was made to intubate patient due to continuous pacing, pain management, level of consciousness
(needed noxious stimuli for nonsensical moaning words), and protection of airway. Dopamine gtt was initiated prior to intubation for hypotension and bradycardia. After intubation (sedation was used for intubation) by PRINCIPAL ACCOUNTS CLERK, dopamine gtt was
titrated and able to stop pacing once patient arrived to the ICU. Propofol gtt and fentanyl gtt started with light sedation protocol. EKG obtained and sent to autism tutor for review, chest xray ordered for ETT placement, airway was advanced 3cm
upon imaging review. Dr. Hobson hospitalist at bedside during code and reviewed patient case and plan of care.
Dr. Braga autism tutor was updated about events, agreed titrating dopamine gtt and pace if needed again. Likely heart block was from initiation of beta ingrid, beta ingrid order stopped. Plan will be to trend troponin, monitor electrolytes,
slowly titrate dopamine gtt.
Patient's Brian Del Angel updated on events and all questions answered.
--- NOTE | 2023-11-26 22:34 | PTCARENOTE ---
rec'd patient post code from IVU. pt on propofol and dopamine gtts. intubated with #8 ETT, 23 at lip. lungs CTA. currently on defib monitor.
upon arrival to ICU - coleman placed. vent settings: AC [id number]%. lungs CTA. b/l soft wrist restraints placed. pt SR on monitor. insulin pump turned off and removed. NPO, accuchecks ordered. fent gtt initiated. labs sent. care ongoing.
[2023-11-26] MEDS: DIPRIVAN 100 IV (22:47)
[2023-11-26] MEDS: SUBLIMAZE 100 IV (22:47)
[2023-11-26] MEDS: DOPamine 400 MG 250 IV (22:47)
[2023-11-26] MEDS: DEXTROSE 50% SYRINGE 25 GRAMS IV (22:58)
[2023-11-26] MEDS: NOVOLIN R 10 UNITS IV (23:00)
[2023-11-26 23:11] LABS: B.E. -0.4 mmol/L; HCO3 24.1 mmol/L (21-28); Ionized Calcium 1.14 mMOL/L (1.15-1.33); PCO2 38 mmHg (32-35); PO2 161 mmHg (83-108); Potassium 4.7 mMOL/L (3.5-5.1); pH 7.41 (7.35-7.45)
[2023-11-26 23:11] LABS: Glucose - Point of Care 272 mg/dl (70-99)
--- NOTE | 2023-11-26 23:18 | PTCARENOTE ---
ICU FRONT END WHEEL LOADER OPERATOR ordered to adjust ett, now 26 at lip, FiO2 decreased to 60%
--- NOTE | 2023-11-26 23:20 | RESPNOTE ---
ETT advanced 3 cm, per provider, to 26 cm
[2023-11-26] MEDS: NOVOLOG FLEXPEN-HIGH RESISTANCE 7 UNITS SC (23:24)
[2023-11-27] VITALS (43 sets, daily range): BP systolic 86–123; BP diastolic 38–74; PULSE 59–74; BMI 25.0
--- NOTE | 2023-11-27 00:13 | PTCARENOTE ---
at bedside, updated on plan of care. pt remains SR on monitor in 70s. current vent settings: AC 14/400/5/60%. continue q4h AccuCheck with coverage. dopa/prop/fent gtts continue. repeat BMP at 0100.
[2023-11-27] MEDS: DIPRIVAN 100 IV ×2 (01:15→05:51)
[2023-11-27] MEDS: SUBLIMAZE 50 MCG IV (01:15)
[2023-11-27 01:40] LABS: Blood Urea Nitrogen 41 mg/dl (7-17); Calcium 8.8 mg/dl (8.4-10.2); Carbon Dioxide 27 mmol/L (22-30); Chloride 92 mmol/L (98-107); Estimated Creatinine Clearance 41 ml/min; Glucose 265 mg/dl (70-99); Potassium 3.8 mmol/L (3.5-5.1); Sodium 126 mmol/L (135-145)
[2023-11-27 03:23] LABS: Glucose - Point of Care 158 mg/dl (70-99)
[2023-11-27] MEDS: NOVOLOG FLEXPEN-HIGH RESISTANCE 2 UNITS SC ×3 (03:52→12:31)
[2023-11-27 04:12] LABS: % Basophils 0.5 % (0-2); % Eosinophils 0.1 % (0-6); % Immature Granulocytes 0.3 % (0-0.5); % Lymphocytes 17.8 % (20.5-51.1); % Monocytes 11.6 % (1.7-9.3); % Neutrophils 69.7 % (42.2-75.2); Absolute Lymphocytes 1.5 10^3/uL (1.2-3.4); Mean Corp Hgb Conc. 35.3 g/dL (33.0-37.0); Mean Corpuscular Hgb 27.6 pg (27.0-31.0); Mean Corpuscular Volume 78.3 fL (81.0-99.0); Mean Platelet Volume 10.8 fL (7.4-10.4); Nucleated Red Blood Cells % 0 %; Platelet Count 152 10^3/uL (130-400); Red Blood Cell Count 4.34 10^6/uL (4.20-5.40); Red Cell Dist. Width 14.7 % (11.5-14.5); White Blood Cell Count 8.6 10^3/uL (4.8-10.8)
--- NOTE | 2023-11-27 04:18 | PTCARENOTE ---
AM labs sent. remains SR on monitor. afebrile. FiO2 decreased to 50%. oral care provided. cont. q4h accuchecks. adequate UOP. prop/fent/dopa gtts continue. care ongoing.
[2023-11-27 04:20] LABS: B.E. 2.8 mmol/L; HCO3 26.1 mmol/L (21-28); O2 Saturation % 99.9 % (94-98); PCO2 35 mmHg (32-35); PO2 132 mmHg (83-108); pH 7.48 (7.35-7.45)
[2023-11-27] MEDS: SYNTHROID PO (04:20)
[2023-11-27 04:31] LABS: Lactic Acid 1.3 mmol/L (0.7-2.0)
[2023-11-27 04:35] LABS: ALT (SGPT) 361 U/L (0-35); AST (SGOT) 603 U/L (14-36); Albumin 3.3 g/dl (3.5-5.0); Alkaline Phosphatase 131 U/L (38-126); Blood Urea Nitrogen 40 mg/dl (7-17); Calcium 8.9 mg/dl (8.4-10.2); Carbon Dioxide 28 mmol/L (22-30); Chloride 93 mmol/L (98-107); Estimated Creatinine Clearance 45 ml/min; Glucose 227 mg/dl (70-99); Magnesium 2.1 mg/dl (1.6-2.3); Potassium 4.1 mmol/L (3.5-5.1); Sodium 126 mmol/L (135-145); Total Bilirubin 0.8 mg/dl (0.2-1.3); Total Protein 5.6 g/dl (6.3-8.2); eGFR 54.06
[2023-11-27 06:38] LABS: Glucose - Point of Care 168 mg/dl (70-99)
--- NOTE | 2023-11-27 07:11 | CON.INTV ---
Addendum entered and electronically signed by Carolin Leyva, 11/27/23 13:02:
Update:
Patient is now extubated following successful SBT
I discussed with both patient and regards to code status
She has extensive/difficult cardiac history, and not likely a further surgical candidate should she have another event
They do not have advanced directives or other documentation indicating her wishes
I would recommend discussions with this, especially if there is no care home solution by her cardiologists at [facility] [place]
All of her care for the past 20 years was at [facility] [place], we will request recent records
If doing well, can likely transfer to floors.
Original Note:
Consultation
Consultation Request
Date/Time Consultation Requested: 11/27/23
Date/Time Consultation Performed: 11/27/23
Performing Provider: Autumn
Reason for Consultation: ICU
Medical History
-
History of Present Illness:
Patient is a 68-year-old female with past medical history for ASCVD status post CABG with sternum infection, sarcoid, Charcot foot disease presenting to ER with complaints of acute onset chest pain with radiation into the arm, and associated
diaphoresis and shortness of breath. She was admitted 11/25/2023, underwent emergent catheterization demonstrating multiple occluded stents and 100% occluded RCA. Underwent successful stenting of left main and significant worsening LV function
noted. Patient then developed continued chest discomfort on 11/26/202311/22 with sudden decompensation including episode of severe bradycardia and complete heart block. Code 9 was initiated, patient was intubated and placed on dopamine. She has
had a history of profound bradycardia with beta-ingrid in the past which almost required pacer but was never placed. She is now transferred to ICU for further management.
Past Medical History
Past Medical History: Other (see list below)
Social History
Tobacco: Non-smoker
Alcohol: None
Drug: None
Family History
Family History: Reviewed & Not Pertinent
Allergies / Home Medications
Allergies
Allergy/AdvReac Type Severity Reaction Status Date / Time
amlodipine Allergy Unknown Verified 11/25/23 22:25
cannabidiol (CBD) extract Allergy Unknown Verified 11/25/23 22:25
ciprofloxacin Allergy Nausea / Verified 11/25/23 04:26
Vomiting
evolocumab Allergy hair loss Verified 11/25/23 22:25
[From Repatha Pushtronex]
rosuvastatin [From Crestor] Allergy cramping Verified 11/25/23 22:25
in legs
sulfamethoxazole Allergy Nausea / Verified 11/25/23 04:26
[From Bactrim] Vomiting
tramadol Allergy Nausea / Verified 11/25/23 04:26
Vomiting
trimethoprim [From Bactrim] Allergy Nausea / Verified 11/25/23 04:26
Vomiting
Home Medications
�Medication �Instructions �Recorded �Confirmed �Last Taken �Type
Ca 600 mg-D3 800 unit-magnes 40 1 ea PO DAILY Supplement 09/18/21 11/25/23 09/18/21 History
yj-amce-top-devonte-boron chewable
tablet (Caltrate 600-D Plus
Minerals)
aspirin 81 mg tablet,delayed 81 mg PO DAILY Blood Clot 09/18/21 11/25/23 11/24/23 History
release (Adult Aspirin Regimen) Prevention/Tx
biotin 1 mg tablet 1 mg PO DAILY Supplement 09/18/21 11/25/23 09/18/21 History
clopidogrel 75 mg tablet 75 mg PO DAILY Blood Clot 09/18/21 11/25/23 09/18/21 History
Prevention/Tx
escitalopram oxalate 10 mg tablet 10 mg PO DAILY depression/anxiety 09/18/21 11/25/23 09/17/21 History
ezetimibe 10 mg tablet 10 mg PO DAILY High Cholesterol 09/18/21 11/25/23 09/18/21 History
levothyroxine 112 mcg tablet 112 mcg PO DAILY Thyroid 09/18/21 11/25/23 09/18/21 History
losartan 25 mg tablet 25 mg PO DAILY Blood Pressure 09/18/21 11/25/23 09/18/21 History
multivit with min-folic 1 ea PO DAILY Supplement 09/18/21 11/25/23 09/18/21 History
acid-lutein 200 mcg-137.5 mcg
chewable tablet
pantoprazole 40 mg tablet,delayed 40 mg PO DAILY Gastrointestinal 09/18/21 11/25/23 09/18/21 History
release Issue
pravastatin 10 mg tablet 10 mg PO DAILY High Cholesterol 09/18/21 11/25/23 09/17/21 History
CoQ-10 1 cap PO DAILY Supplement 11/25/23 11/25/23 Unknown History
cefdinir 300 mg capsule 300 mg PO BID Infection 11/25/23 11/25/23 Unknown History
fluconazole 200 mg tablet 200 mg PO DAILY Infection 11/25/23 11/25/23 Unknown History
isosorbide dinitrate 30 mg tablet 30 mg PO TID Heart 11/25/23 11/25/23 Unknown History
Disease/Condition
ranolazine 500 mg tablet,extended 500 mg PO BID Heart 11/25/23 11/25/23 Unknown History
release,12 hr Disease/Condition
tramadol 37.5 mg-acetaminophen 325 1 tab PO TID PRN L2 compression fx 11/25/23 11/25/23 Unknown History
mg tablet
Review of Systems
-
Unable to Obtain full review of systems at this time due to: Patient Intubation
Vitals / Labs / Diagnostic Testing
Vital Signs
Temp Pulse Resp BP Pulse Ox
100.1 F 67 12 109/55 99
11/27/23 06:11 11/27/23 06:45 11/27/23 06:45 11/27/23 06:45 11/27/23 06:45
Lab Data
11/27/23 03:59
11/27/23 03:59
Laboratory Results
11/26/23 11/26/23 11/26/23
21:09 21:50 21:50
PT Cancelled 17.0 H
INR Cancelled
APTT
pH Cancelled
pCO2 Cancelled
pO2 Cancelled
HCO3 Cancelled
O2 Delivery Level Cancelled
11/26/23 11/26/23 11/26/23
21:50 23:00 23:05
PT
INR 1.40
APTT 32.9
pH Cancelled 7.41
pCO2 Cancelled 38 H
pO2 Cancelled 161 H
HCO3 Cancelled 24.1
O2 Delivery Level Cancelled
11/27/23
04:03
PT
INR
APTT
pH 7.48 H
pCO2 35
pO2 132 H
HCO3 26.1
O2 Delivery Level
Diagnostic Testing:
Physical Exam
-
HEENT: Normocephalic, Anicteric and Moist Mucous Membranes
Cardiovascular: S1/S2 and Regular Rhythm
Respiratory: Clear and Non-Labored Respirations
GI: Soft, Non Distended and Normal Bowel Sounds
Neurology: Other (sedated/intubated)
Skin: Warm, Dry and Good Color
General: Comfortable and Other (NAD)
Assessment
-
Patient is a 68-year-old female with past medical history for ASCVD status post CABG with sternum infection, sarcoid, Charcot foot disease presenting to ER with complaints of acute onset chest pain with radiation into the arm, and associated
diaphoresis and shortness of breath. She was admitted 11/25/2023, underwent emergent catheterization demonstrating multiple occluded stents and 100% occluded RCA. Underwent successful stenting of left main and significant worsening LV function
noted. Patient then developed continued chest discomfort on 11/26/202311/22 with sudden decompensation including episode of severe bradycardia and complete heart block. Code 9 was initiated, patient was intubated and placed on dopamine. She has
had a history of profound bradycardia with beta-ingrid in the past which almost required pacer but was never placed. She is now transferred to ICU for further management.
Acute on chronic ACS/NSTEMI
History of MVCAD s/p stent/CABG, near stent occlusion noted on cath/100% RCA
Acute symptomatic bradycardia with syncope/CHB now on dopamine
Unresponsiveness s/p intubation for airway protection/code 9
Chest pain
HFrEF : EF 25-30% by ventriculography and by echocardiogram
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
Severe/chronic back pain with fractures
Retinal detachment
Anemia
Thrombocytopenia
Sarcoidosis
Diabetes
Hypothyroid
CKD III
HTN, HLD, PVD
B/L charcot's
Osteopenia
H/o radial artery thrombosis
CAD w/ h/o 12 stents in past; s/p stent 07/29/23
Double bypass at [facility] 03/11/20
C/b sternal osteo s/p debridement, 2 wires removed, b/l flap (Dr Victor - thoracic surgeon - left [place]), Dr Carlos - Plastics 04/03
Two infections; boil at Proximal chest-debridement, removed rectus muscle to sternum-used skin sub in OR: re-opened x 2-3 months - abscessed 07/03
s/p debridement/L sternum removed/ribs involved d/t persistent osteomyelitis - follows ID - Dr. Angelita Jaramillo - [facility] 12/03
CT Showed (11/20/2020) - ordered by Dr Jaramillo/ID shows chronic infection in sternum 03/05; on chronic cefdinir/fluconazole
Plan
No current signs of metabolic encephalopathy or MS changes/following commands
Sedated/intubated
Pain/sedation: fent/prop, SAT today
RASS goals: 0
Hemodynamically unstable, requiring pressors.
Requiring pressors: dopamine started for bradycardia, weaned to 5mcg
Cardiac history reviewed--extensive including CAD s/p 12 stents, CAB with sternal osteo complications
Cards adarsh noted--would not be a candidate for pacer given sternal wounds
She is on chronic suppressive abx
Known to [facility] [place]
Prior ECHO reviewed indicating EF 25-30%/stage II DD, mod-severe PH, RWMAs
Resume home meds per cards, avoid BB given CHB
Monitor on telemetry
Oxygen needs: intubated due to unresponsiveness, no history of desaturation/hypoxemia
Prior history of lung disease: She has history of pulm sarcoid, unclear if active
CXR showing edema, no prior chest CT
Vent setting reviewed; SBT trial today
Supplemental O2 as indicated to maintain sats > 89%
Extubate if passes SBT trials
NPO, resume diet when able
Table And Desk Finisher recommendations
Aspiration precautions, HOB > 30 degrees
Speech therapy eval can be considered if at elevated risk
GI prophylaxis if indicated for mechanical ventilation >48 hours, prior history of GERD, stress ulcer formation in the critically ill
Creat at baseline, no history of renal disease
Hyponatremia noted, renal following
Diuresis ongoing, proBNP >27k
Void trials
Follow urine output, critical I/Os
Replete electrolytes as needed
No signs/symptoms suspicious for acute infectious etiology at this time
She is on chronic abx for sternal infection, resumed on home cefdinir/fluconazole
Follow fever trend, WBC count
CBC stable, no signs of bleeding or coagulopathy.
DVT prophylaxis as assessed based on risk, including mechanical SCDs
Can transfuse if indicated for Hb <7, plt < 10
INR WNL
H/o hypothyroidism, can continue on home synthroid dose
H/o type I diabetes, can continue on home meds, SS for coverage
DM FRAME TRIMMER consult for management
Resume on insulin pump
GOC discussions may be warranted if there is no ultimate plan
She is full code
We will follow
Diagnostic Data
Chest X-Ray: 11/26/23- Endotracheal tube has been inserted with tip 6.0 cm above ivana. Radiographic findings suggesting development of interstitial edema since examination earlier this same date.
Evidence for small to moderate left pleural effusion, probably slightly increasing.
11/25/23- MODERATE ACUTE INTERSTITIAL CARDIOGENIC PULMONARY EDEMA.
03/16/21- No acute disease of the chest.
CT Scan:
Echo: 11/25/23- Normal left ventricular size and wall thickness LAD regional wall motion abnormality. With LV most vigorous at the base. Mid to distal inferior, inferolateral hypokinesis. Mid to distal lateral wall hypokinesis, mid to distal
anterior wall hypokinesis likely. LV ejection fraction is 25-30% by Lerma's method of discs. Stage II diastolic dysfunction suggestive of abnormal relaxation and increased filling pressures. Normal right ventricular size. Mildly reduced right
ventricular systolic function. Mitral valve opens normally. Thickened mitral valve leaflets. Mild to moderate mitral regurgitation. Trileaflet aortic valve. Aortic sclerosis without stenosis. Mild aortic
regurgitation. Tricuspid valve opens normally. Moderate to severe tricuspid regurgitation. Estimated pulmonary artery pressure of 53-58 mmHg. Assuming a right atrial pressure of 8 mmHg.
[facility] 11/25/23 - CONCLUSION
1. Successful stenting of diagonal branch with a 2.0 x 12 mm Donald stent that was implanted at nominal pressures and postdilated with a 2.25 mm noncompliant balloon. The area of high-grade stenosis appeared to be in an area of stent overlap from
prior stenting of the diagonal branch. (I do not have access to full records to know prior diagonal stent history or LAD stent history).
2. Angiographically stable and patent GOYAL-LAD and SVG-PDA
3. Significant worsening of LV function when compared to prior echocardiogram ports from [facility]
PFT's:
Reports and relevant images were personally reviewed.
-----
Critical Care time 81 mins -- The patient is admitted for acute critical illness for the treatment of vital organ failure and/or prevention of further life-threatening conditions. Total care includes time spent in review of history, physical exam,
medications, hemodynamic/ventilator parameters, laboratory data, imaging and discussion with house staff, pharmacy, respiratory therapy, biological photographer, and nursing.
[2023-11-27] MEDS: ASPIR LOW (ENTERIC COATED) PO (07:26)
[2023-11-27] MEDS: LEXAPRO PO (07:26)
[2023-11-27] MEDS: DIFLUCAN PO (07:26)
[2023-11-27] MEDS: PROTONIX PO (07:27)
[2023-11-27] MEDS: RANEXA EXTENDED RELEASE PO (07:27)
[2023-11-27] MEDS: PLAVIX PO (07:27)
[2023-11-27] MEDS: OMNICEF PO (07:27)
--- NOTE | 2023-11-27 08:00 | W.PN.NEPH.PH ---
Today's Communication / Plan
-
Maintain IV Lasix
Recheck electrolytes later today
Assessment/Plan
-
IMP:
ACS s/p Stent D branch 11/24
ASCVD
Acute systolic and diastolic CHF 25-30%
mild to mod MR
mod to severe TR
Acute on chronic Hyponatremia-follows Dr Bliss out pt
DM-I
Benign Hypertension
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
Hypothyroidism
PLan:
A/w ACS known complex CAD s/p stent 11/24
hyponatremia-acute on chronic likely exaggerated by CHF : now at 126
may have underlying SIADH with SSRI use, recent back pain
U osmo 340, U na relatively low 33
would continue lasix IV , recheck labs later, will add second dose if sodium not improved
LVEDP was high at 44 suspect hyponatremia related to hypervolemia in setting of decompensated congestive heart failure
maintain FR 40 ounces/day
Patient with symptomatic bradycardic event last night requiring dopamine infusion and intubation
Patient critically ill intubated on dopamine support
TSH and cortisol were ok
creatinine at 1.1
back pain-ok for muscle relaxers, reports tried other meds with out success
d/w pt and
d/w nursing , 32 minutes critical care time spent with patient
Total Time Spent with Patient (in minutes): 32
-
-
Date of Service: November 27, 2023
CC / HPI / ROS
-
Chief Complaint:
hyponatremia
History of Present Illness:
sodium slightly better at 126
heart block event overnight, now intubated (beta ingrid held)
cr at 1.1
Review of Systems:
Intubated with stable FiO2
Nonoliguric via Browning
Sedated
Labs
-
Labs:
WBC 8.6 10^3/uL (4.8-10.8) 11/27/23 03:59
RBC 4.34 10^6/uL (4.20-5.40) 11/27/23 03:59
Hgb 12.0 g/dL (12.0-16.0) 11/27/23 03:59
Hct 34.0 % (37.0-47.0) L 11/27/23 03:59
Plt Count 152 10^3/uL (130-400) 11/27/23 03:59
Sodium 126 mmol/L (135-145) L 11/27/23 03:59
Potassium 4.1 mmol/L (3.5-5.1) 11/27/23 03:59
Chloride 93 mmol/L (98-107) L 11/27/23 03:59
Carbon Dioxide 28 mmol/L (22-30) 11/27/23 03:59
BUN 40 mg/dl (7-17) H 11/27/23 03:59
Creatinine 1.1 mg/dL (0.6-1.0) H 11/27/23 03:59
eGFR 54.06 11/27/23 03:59
Glucose 227 mg/dl (70-99) H 11/27/23 03:59
Calcium 8.9 mg/dl (8.4-10.2) 11/27/23 03:59
Phosphorus 5.2 mg/dl (2.5-4.5) H 11/26/23 03:52
Frl-D-Fgpirteinmw Pept > 37743 pg/ml 11/26/23 15:47
Albumin 3.3 g/dl (3.5-5.0) L 11/27/23 03:59
Physical Exam
-
Vital Signs:
Vital Signs
Temp Pulse Resp BP Pulse Ox
99.8 F 69 12 116/44 99
11/27/23 07:22 11/27/23 07:22 11/27/23 07:22 11/27/23 07:22 11/27/23 07:41
Cardiovascular:: Regular rate and rhythm (Bradycardic)
Respiratory:: Bilateral: Rales (at bases)
Lung Excursion:: Normal
Abdomen:: Nontender and Soft
Extremity Edema:: +1: Bilateral: (trace)
Browning Catheter: Yes
[2023-11-27] MEDS: LASIX 40 MG IV (08:25)
[2023-11-27] MEDS: LIDOCAINE 4% PATCH 1 PATCH TOPICAL (08:25)
--- NOTE | 2023-11-27 08:39 | PTCARENOTE ---
Updated assessment, vital signs ongoing and as documented. Continue follow up with seed buyer team during rounds. Weaning sedation in prep for SBT. Nephrology at bedside this am, am lasix as ordered, follow up lytes from am and again this
afternoon. Update with cardiology this am, events of evening, Icu admission, plan of cares, concerns thru shift. Continue with critical care nursing at [facility]. Follow up drip titration and ongoing progress thru till rounds.
--- NOTE | 2023-11-27 09:03 | W.PN.CARDCBS ---
Addendum entered and electronically signed by Jay Ornelas MD 11/27/23 13:36:
I saw and examined the patient.
The Scheduling Agent's note was reviewed and I agree with the note.
Comment: Briefly, 68-year-old woman with complicated past medical history including prior CABG complicated by sternal wound infection on chronic antifungals for suppression therapy who presented with back and chest pain as well as dyspnea
Ruled in with elevated troponin
LV systolic function was found to be severely reduced by echo here (EF 25-30%)
Underwent invasive coronary angiography on 11/25/2023 with intervention on a diagonal branch
Unfortunately she developed profound bradycardia last evening after initiating beta-ingrid and required dopamine infusion and intubation for airway protection
Reportedly had similar intolerance to beta-ingrid in the past per her primary wholesale agronomist, will not resume here
Wean dopamine as heart rate and blood pressure allow
Continue aspirin/Plavix and high intensity statin for medical management of CAD with ranolazine as antianginal
Agree with IV diuresis given severely elevated LVEDP during left heart catheterization
Original Note:
Today's Communication / Plan
-
wean sedation and dopamine
follow BP/HR
avoid BB
GDMT of CM
diuresis
Impression / Plan
-
.
PCP: Dr. Caitie Laird
Sales Recruiter: Dr. Mame Bardales ([facility])
Impression:
-Presented with chest pain
-Episode of severe bradycardia and complete heart block.
-VDRF, intubated during episode.
-Elevated troponin, NSTEMI: Peak troponin 27.5 resulting in diag PCI 11/25/23
-Hyponatremia
-HFrEF : EF 25-30% by ventriculography and by echocardiogram
-Severe back discomfort with fractures
-CAD
h/o (now) 12 coronary stents
s/p CABG x 2 (GOYAL to LAD, SVG to RPDA) 03/11/2020
s/p PCI of D1 07/29/2023 and stenting at distal edge of prior stent with a 2.25 x 12 mm Bartlett stent
-HTN
-HLD
-Type I DM
-h/o lung sarcoidosis
-CKD 3
-h/o chronic sternal osteomyelitis
on chronic cefdinir/fluconazole
-h/o radial artery thrombosis
-Hypothyroidism
Echo 03/09/2020: EF 60 to 65%, mild AI, trace TR,
Echo 11/25/2023: EF 25 to 30%, LAD regional wall motion abnormality, LV most vigorous at base, mid to distal inferior, inferolateral hypokinesis, mid to distal lateral wall hypokinesis, mid to distal anterior wall hypokinesis, stage II diastolic
dysfunction, mild to moderate MR, aortic sclerosis, mild AR, moderate to severe TR, PAP 53 to 58 mmHg
Plan:
-Patient presented with chest and back discomfort.
-ruled in for NSTEMI with peak trop 27.5 resulting in cath with diag PCI 11/25/23. continue asa, plavix
-echo with EF 25-30%, which was felt to be out of proportion to CAD noted by cath
-11/25 had episode of chest discomfort, flushing, and nausea improved s/p episode of vomiting
-lumbar spine MRI with acute L2 fracture, acute T12 fracture, no evidence for discitis or abscess, liver findings suspicious for hepatitis
-Last evening she developed symptomatic bradycardia with evidence of complete heart block. She never lost pulse or pressure but did become unresponsive. Did not respond to atropine but responded to initiation of IV dopamine. She was intubated
during the episode. Weaning sedation this morning, and will attempt to extubate if able. After discussing with primary wholesale agronomist, patient reportedly has history of profound bradycardia with beta-ingrid in the past, almost requiring pacemaker.
Toprol had been started post cath, she was given 12.5 mg yesterday morning. Avoid beta-ingrid moving forward, added to chart as severe adverse reaction. Wean dopamine as able
-trops continue to trend down
-At time of cath LVEDP was 45. Continue diuresis. Creatinine stable. Follow hyponatremia
-not candidate for SGLT2 inhibitor given type 1 diabetic and associated risk for euglycemic DKA
-Continue supportive care of acute compression fractures
-she is on chronic diflucan and cefdinir for chronic sternal wound infection
-holding pravastatin given elevated LFTs. Reported intolerance to higher doses of statin and inability to tolerate Repatha
-d/w nursing
HPI: Jessica is a 68 year old female with PMH of CAD with extensive prior cardiac stenting and CABG x2, chronic HFpEF, HTN, HLD, type 1 DM, sarcoidosis, sternal osteomyelitis, and radial artery thrombosis who presented to [facility] for evaluation of chest
pain. She started with chest pain last evening and took a SL nitro which relieved her pain initially. She then went to bed, but again woke up around 4 AM with recurrent chest pain with radiation into her arm. She again took SL nitro, however this
did not relieve her pain. She came to [facility] for evaluation as she states these symptoms are consistent with her prior angina. On arrival to [facility], she was noted to have elevated troponin of 1.26. She was started on IV heparin and given SL nitro, but
continued to have chest pain and arm pain, so she was started on IV nitro. She reports since starting IV nitro, her chest pain has resolved, but she continues to have L arm pain. Echo being completed during interview. She also had elevated troponin
of 2540 and chest xray showed pulmonary edema. Cardiology consulted for evaluation given chest pain with significant coronary disease history.
Progress Note - Sales Recruiter
Subjective
Date of Service: November 27, 2023
intubated, sedated
Objective
Labs:
11/27/23 03:59
Labs
Hgb 12.0 g/dL (12.0-16.0) 11/27/23 03:59
Hct 34.0 % (37.0-47.0) L 11/27/23 03:59
Plt Count 152 10^3/uL (130-400) 11/27/23 03:59
PT 17.0 Sec (11.4-14.6) H 11/26/23 21:50
PT Cancelled 11/26/23 21:50
INR 1.40 11/26/23 21:50
INR Cancelled 11/26/23 21:50
APTT 32.9 Sec (23.4-35.0) 11/26/23 21:50
Sodium 126 mmol/L (135-145) L 11/27/23 03:59
Potassium 4.1 mmol/L (3.5-5.1) 11/27/23 03:59
BUN 40 mg/dl (7-17) H 11/27/23 03:59
Creatinine 1.1 mg/dL (0.6-1.0) H 11/27/23 03:59
Glucose 227 mg/dl (70-99) H 11/27/23 03:59
Troponins
11/25/23 11/25/23 11/25/23
04:38 09:23 12:19
Troponin I 1.260 H* Cancelled 10.300 H* D
11/25/23 11/25/23 11/25/23
15:23 17:30 20:03
Troponin I Cancelled Cancelled 26.000 H* D
11/25/23 11/25/23 11/26/23
21:23 23:59 03:52
Troponin I Cancelled Cancelled Cancelled
11/26/23 11/26/23 11/26/23
03:52 04:00 09:24
Troponin I 27.500 H* Cancelled 23.400 H*
11/26/23 11/26/23 11/26/23
14:43 15:47 15:47
Troponin I Cancelled Cancelled 24.200 H*
11/26/23 11/26/23 11/27/23
20:15 21:50 03:59
Troponin I 18.500 H* 17.200 H* 11.200 H* D
Vital Signs and I&O:
Vital Signs
Temp Pulse Resp BP Pulse Ox
99.8 F 69 12 111/48 100
11/27/23 07:22 11/27/23 08:25 11/27/23 08:15 11/27/23 08:25 11/27/23 08:15
Vital Signs
Temp Pulse Resp BP Pulse Ox
99.8 F 69 12 111/48 100
11/27/23 07:22 11/27/23 08:25 11/27/23 08:15 11/27/23 08:25 11/27/23 08:15
Intake & Output
11/25/23 11/26/23 11/27/23 11/28/23
07:59 07:59 07:59 07:59
Intake Total 610 / 610 338.4 / 375.6 37.2 / 37.2
Output Total 950 / 950 2810 / 2960 150 / 150
Balance -340 / -340 -2471.6 / -2584.4 -112.8 / -112.8
Physical Exam
Physical Exam
GEN: No distress, intubated, sedated
HEENT: supple, mmm
LUNGS: CTA B/L, no wheezes
CV: Reg, S1/S2, no murmur
EXT: No cyanosis, clubbing. trace edema of B/L LE
NEURO: sedated
SKIN: Warm, pink, dry. No rash
--- NOTE | 2023-11-27 09:07 | W.PN.HOSP.TC ---
Today's Communication/Plan
-
Pressor. Mechanical ventilation.
Assessment / Plan
Assessment / Plan
Physical exam:
General: Acutely ill
HEENT: Normocephalic, Atraumatic and Moist Mucous Membranes
Respiratory: Coarse crackles in the bases; Negative Wheezes or Rhonchi
Cardiac: Regular Rhythm and S1/S2, episodes of bradycardia noticed and tachycardia
GI: Soft, Nontender and Nondistended
Musculoskeletal: Decreased range of motion in the back. Tenderness in the back. No Clubbing, No Cyanosis. Bilateral edema present lower extremities
Neuro: On the vent with minimal sedation but Alert and oriented and spontaneously moves all extremities and follow commands.
Psych: Calm
A/P:
Cardiorespiratory arrest:
Bradycardia trigger event by [id number] beta-blockers at all
Defer candidacy or need for pacemaker to cardiology if anything
Status post intubated last evening
Started on pressors and inotropic, dopamine--> titrate as able
Cardiology on board
Discussed with at bedside
Acute hypoxic respiratory failure:
Continue mechanical ventilation
Weaning trial today
NSTEMI:
Status postcardiac cath on 11/24
Successful stenting of diagonal branch
Continue dual antiplatelet therapy aspirin and Plavix
Started on metoprolol XL but discontinued after cardiac event.
On statins
On Ranexa
Continue cardiac monitoring
Cardiology consult and follow-up appreciated
Hypotension:
Probably medications related but rule out sepsis or cardiogenic related-defer cardiac medications to cardiology.
Further images for vascular perspective if remains hypotensive
Obtain blood cultures and lactic acid and regular labs today
Was planning on doing a CTA but cardiology recommends to hold off
Shortness of breath:
Could be related to underlying exacerbated CHF status and workup confirmatory
Was planning on doing a CTA but cardiology recommends to hold off.
Acute systolic congestive heart failure:
IV diuretics, Lasix 40 mg twice a day
BNP upon admission
Monitor strict I/O
Monitor daily weight
Monitor renal function and electrolytes
Reviewed latest echocardiogram on our system
Continue guideline-directed medical therapy for heart failure (GDMT)
Fluid restriction
Salt restriction
Heart failure education
Follow up clinical response
Severe hyponatremia:
Monitoring sodium closely
Nephrology following
Probably start Samsca if not improvement
Chronic sternal osteomyelitis:
On oral cefdinir and fluconazole--> ID consulted
Repeat cultures pending
Acute on chronic back pain due to T12 and L2 acute fracture:
Continue pain meds
Reviewed MRI of the back
No evidence of infection
Might need to contemplate candidacy for kyphoplasty but needs to see how she does with pain meds and therapy.
Diabetes mellitus type 1:
Continue diabetic diet
Some episodes of relative hypoglycemia so continue insulin pump but monitor sugars closely
Hypothyroidism:
Continue thyroid replacement
Elevated LFTs:
Monitor trend
Ultrasound right upper quadrant
Hepatitis screen
DVT prophylaxis:
SCDs
Lovenox
CODE STATUS:
Full code
Total Critical Care Time 35 minutes. I was immediately available to the patient and staff. I personally examined, reviewed labs, diagnostic images/reports, interpretations, treatment plans, discussed patient care with other providers and family
or caregivers (if patient is unable to make decisions), entered orders as appropriate and documented the medical record.
Anticipated Discharge: > 48 hours
Subjective/Interval History
-
Date of Service: November 27, 2023
Patient seen and examined today. Patient intubated on the vent. Alert and follows commands.
Objective Data
-
Labs:
Laboratory Results
11/26/23 11/26/23 11/26/23
21:09 21:50 21:50
WBC 7.2
Hgb 11.7 L
Hct 32.9 L
Plt Count 142
PT Cancelled 17.0 H
INR Cancelled
APTT
HCO3 Cancelled
Sodium
Potassium
Chloride
Carbon Dioxide
BUN
Creatinine
Glucose
Calcium
Total Bilirubin
AST
ALT
Alkaline Phosphatase
11/26/23 11/26/23 11/26/23
21:50 23:00 23:05
WBC
Hgb
Hct
Plt Count
PT
INR 1.40
APTT 32.9
HCO3 Cancelled 24.1
Sodium 120 L
Potassium 5.9 H
Chloride 90 L
Carbon Dioxide 22
BUN 41 H
Creatinine 1.3 H
Glucose 295 H
Calcium 8.5
Total Bilirubin 1.0
AST 523 H*
ALT 297 H
Alkaline Phosphatase 123
11/27/23 11/27/23 11/27/23
01:11 03:59 04:03
WBC 8.6
Hgb 12.0
Hct 34.0 L
Plt Count 152
PT
INR
APTT
HCO3 26.1
Sodium 126 L 126 L
Potassium 3.8 D 4.1
Chloride 92 L 93 L
Carbon Dioxide 27 28
BUN 41 H 40 H
Creatinine 1.2 H 1.1 H
Glucose 265 H 227 H
Calcium 8.8 8.9
Total Bilirubin 0.8
AST 603 H*
ALT 361 H
Alkaline Phosphatase 131 H
11/27/23
15:00
WBC
Hgb
Hct
Plt Count
PT
INR
APTT
HCO3
Sodium Pending
Potassium Pending
Chloride Pending
Carbon Dioxide Pending
BUN
Creatinine
Glucose
Calcium
Total Bilirubin
AST
ALT
Alkaline Phosphatase
Vital Signs:
Vital Signs
Temp Pulse Resp BP Pulse Ox
99.8 F 69 12 111/48 100
11/27/23 07:22 11/27/23 08:25 11/27/23 08:15 11/27/23 08:25 11/27/23 08:15
I&O
11/26/23 11/27/23 11/28/23
06:59 06:59 06:59
Intake Total 610 / 610 301.2 / 338.4 74.4 / 74.4
Output Total 950 / 950 2735 / 2810 225 / 225
Balance -340 / -340 -2433.8 / -2471.6 -150.6 / -150.6
--- NOTE | 2023-11-27 09:15 | PN.DE.MGMTRT ---
Insulin Management
- -
11/27/2023: Diabetes Management Consult Follow up
Patient admitted with chest pain. PMH: CAD with extensive prior cardiac stenting and CABG x2, chronic HFpEF, HTN, HLD, Hypothyroidism, GERD, Sarcoidosis, T1DM (since age 20), radial artery thrombosis and sternum Infection/Osteomyelitis s/p Multiple
Surgeries and on Lifelong Abx.
Pt uses Medtronic 680G with Guardian sensor novolog insulin and Quick Sets. She routinely sees Endo Dr. Harris Cazares in [place].
Pt is awake, A/O x3, sitting up in bed, able to discuss insulin pump and glucose control.
Had Cardiac Cath 11/24.
11/25 patient had episode of bradycardia, code 9 called, required intubation, insulin pump removed and sent home with . Will order basal insulin 20 units lantus now and continue Q 4 hour high corrective insulin. Will resume insulin pump when
appropriate
Pump settings as follows:
Basal 12am -12am 0.750
24 total basal 18 units.
[id number] - 12am 1:73
ICR
12am 1:6.5
11am 1:6
4 pm 1:6
7 pm 1:5.5
Target 85-120
Insulin duration time 2.5hrs
Diabetes History
- -
Type of Diabetes: 1
Pre-Admission Diabetes Regimen
11/26/23 11/26/23 11/26/23
09:24 14:43 15:46
Creatinine 1.1 H Cancelled Cancelled
11/26/23 11/26/23 11/27/23
15:47 21:50 01:11
Creatinine 1.5 H 1.3 H 1.2 H
11/27/23
03:59
Creatinine 1.1 H
Lab Results
Hemoglobin A1c 7.0 % (4.0-5.6) H 11/25/23 04:38
Insulin Pump Settings
IP Diabetes Regimen
11/26/23 11/26/23 11/26/23
09:24 11:47 14:43
Glucose 208 H Cancelled
POC Glucose 95
11/26/23 11/26/23 11/26/23
15:46 15:47 17:18
Glucose Cancelled 65 L
POC Glucose 104 H
11/26/23 11/26/23 11/26/23
21:06 21:50 23:00
Glucose 295 H
POC Glucose 233 H 272 H
11/27/23 11/27/23 11/27/23
01:11 03:11 03:59
Glucose 265 H 227 H
POC Glucose 158 H
11/27/23
06:27
Glucose
POC Glucose 168 H
Meal type: Breakfast
Meal type: Breakfast
Amount consumed: 50%
Patient Education
[2023-11-27] MEDS: LANTUS 0.2 UNITS SC (10:18)
--- NOTE | 2023-11-27 10:25 | PTCARENOTE ---
Patient progressing thru weaning progress. 40%fio2 Cpap5 peep 5. SBT continues. Update in am rounds with Fleet Administrative Assistant team and pharmacy. Updates with diabetic education team. at bedside. Continue with teaching and follow up. Will follow thru
weaning process.
[2023-11-27 10:29] LABS: Glucose - Point of Care 164 mg/dl (70-99)
--- NOTE | 2023-11-27 10:38 | PTCARENOTE ---
Update with Hospitalist team at bedside with family. Updated plan of cares. Updated weaning progress. Patient awake alert following commands writing to asking about events of evening. Continue follow up weaning and teaching as indicated.
--- NOTE | 2023-11-27 11:20 | RESPNOTE ---
pt extubated to 4 lpm of nasal cannula. 02 sats of 100% noted
--- NOTE | 2023-11-27 11:41 | PTCARENOTE ---
Update with customer service manager/pulmonary team. Extubated with respiratory cares team at 1120am. Weaned to 4lpm n/c. Tolerates ice chips and small sips at present. Will update hospitalist and Diabetic team await nutrition orders and follow up.
--- NOTE | 2023-11-27 12:12 | CON.ID ---
Consultation
-
Date/Time Consultation Requested: November 26, 2023 1813
Date/Time Consultation Performed: November 27, 2023 1215
Requesting Provider: Dr. Osmin Reyes
Performing Provider: Dr. Mirian Yoo
Reason for Consultation: Chronuc sternal osteomyelitis and elevated LFT's
Chief Complaint / Past History
Chief Complaint
Chest pain
History of Present Illness
68 year old female with DM1, extensive CAD hx CABG x 2, 11 stents, post-CABG sternal osteo on suppressive cefdinir, fluconazole who presented to the ED on 11/24 with chest pain radiating to arm. Pt NSTEMI, acute on chronic HF, s/p emergent cardiac
cath, stent placed. Last night pt was bradycardic and unresponsive, deemed from beta-ingrid. She was intubated and started dopamine. This am, she is extubated. Her AST and ALT are trending up since admission. Fluconazole was held this am and ID
consulted for assistance. at bedside. Regarding the chronic osteo, she follows with ID Dr. Oh since 2020. She has had multiple sternal debridement/flaps. She tolerates suppressive cefdinir and fluconazole. The sternum wound has
closed. Tenderness is stable. No N/V/abd pain. No diarrhea.
Past History
Additional Past Medical History:
DM1
CADs/p CABG x 2 (03/11/2020), multiple stents
HFrEF
HTN
hypothyroidism
CKD3
Lung sarcoidosis
Chronic sternum osteomyelitis
s/p debridement, 2 wires removed, b/l flap (Dr Victor - thoracic surgeon - left [place]), Dr Carlos - Plastics 04/03
Two infections; boil at Proximal chest-debridement, removed rectus muscle to sternum-used skin sub in OR: re-opened x 2-3 months - abscessed 07/03
s/p debridement/L sternum removed/ribs involved d/t persistent osteomyelitis - follows ID - Dr. Angelita Jaramillo - [place] [facility] 12/03
CT Showed (11/20/2020) - ordered by Dr Jaramillo/ID shows chronic infection in sternum 03/05
Since 03/16/[address] Oh. On chronic cefdinir 300mg bid and fluconazole 200mg qd suppressive therapy
Allergy History:
metoprolol Allergy (Severe, Verified 11/27/23 09:46)
HEART BLOCK
amlodipine Allergy (Verified 11/25/23 22:25)
Unknown
cannabidiol (CBD) extract Allergy (Verified 11/25/23 22:25)
Unknown
ciprofloxacin Allergy (Verified 11/25/23 04:26)
Nausea / Vomiting
evolocumab [From Repatha Pushtronex] Allergy (Verified 11/25/23 22:25)
hair loss
rosuvastatin [From Crestor] Allergy (Verified 11/25/23 22:25)
cramping in legs
sulfamethoxazole [From Bactrim] Allergy (Verified 11/25/23 04:26)
Nausea / Vomiting
tramadol Allergy (Verified 11/25/23 04:26)
Nausea / Vomiting
trimethoprim [From Bactrim] Allergy (Verified 11/25/23 04:26)
Nausea / Vomiting
Medications Reviewed: Yes
Current Antibiotics:
cefdinir
fluconazole
Social History
Tobacco: Former Smoker
Alcohol: Occasional
Drug: None
Personal:
Family History
Family History: Not Pertinent
Review of Systems
Review of Systems
General: Negative Fever or Chills
HEENT: Negative Sinus Problems or Headache
Respiratory: Negative Dyspnea or Cough
Gasteroenterology: Negative Nausea or Vomiting
Genital / Urological: Negative Dysuria or Flank Pain
Endocrine: Weakness
Neurological: Negative Headache or Dizziness
All systems: All other systems were reviewed and were negative
Vital Signs
Temp Pulse Resp BP Pulse Ox
99.9 F 67 28 105/48 100
11/27/23 09:57 11/27/23 10:00 11/27/23 10:00 11/27/23 09:57 11/27/23 11:40
Physical Exam
Physical Exam
Constitutional: No Acute Distress and Comfortable
Eyes: No Conjunctival Hemorrhage and Sclera Anicteric
Cardiovascular: Regular Rate and S1/S2
Pulmonary: Other (Decreased BS at bases.)
Gastrointestinal: Soft, Non Tender, Non Distended and Normal Bowel Sounds
Extremities: Venous Insufficiency; Negative Edema
Wound: Other (Sternum is closed, no open wound, no erythema)
Neurological: AO x 3
Lab / Diagnostic Study Results
11/27/23 03:59
Abs Immat Gran (auto) 0.0 10^3/uL (0-0.05) 11/27/23 03:59
Absolute Neuts (auto) 6.0 10^3/uL (1.4-6.5) 11/27/23 03:59
Absolute Lymphs (auto) 1.5 10^3/uL (1.2-3.4) 11/27/23 03:59
Absolute Monos (auto) 1.0 10^3/uL (0.1-0.6) H 11/27/23 03:59
Absolute Basos (auto) 0.0 10^3/uL (0-0.2) 11/27/23 03:59
Immature Gran % 0.3 % (0-0.5) 11/27/23 03:59
Neutrophils % 69.7 % (42.2-75.2) 11/27/23 03:59
Lymphocytes % 17.8 % (20.5-51.1) L 11/27/23 03:59
Monocytes % 11.6 % (1.7-9.3) H 11/27/23 03:59
Eosinophils % 0.1 % (0-6) 11/27/23 03:59
Basophils % 0.5 % (0-2) 11/27/23 03:59
PT 17.0 Sec (11.4-14.6) H 11/26/23 21:50
PT Cancelled 11/26/23 21:50
INR 1.40 11/26/23 21:50
INR Cancelled 11/26/23 21:50
Lactic Acid 1.3 mmol/L (0.7-2.0) 11/27/23 04:00
C-Reactive Protein 44.00 mg/L (0.0-10.00) H 11/26/23 15:40
Procalcitonin 0.09 ng/ml (0.0-0.25) 11/26/23 15:47
Microbiology Results
Micro:
11/26/23 20:15 Blood Culture - Pending
Blood/Venous
11/25/23 CXR: MODERATE ACUTE INTERSTITIAL CARDIOGENIC PULMONARY EDEMA.
11/26/23 MRI lumbar: No MRI evidence for acute infectious discitis or epidural abscess in the lumbar spine. 2. ACUTE INFERIOR ENDPLATE FRACTURE of L2 with mild to moderate loss of vertebral body height and retropulsion of the posterior inferior
endplate into the anterior epidural space causing mild central canal stenosis and moderate bilateral neural foraminal narrowing. 3. ACUTE SUPERIOR ENDPLATE FRACTURE of T12 with mild loss of vertebral body height.
Assessment / Plan
# Chronic sternal osteomyelitis
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
- Follows with Dr. Oh
# Acute elevated AST and ALT
- Trending up
# NSTEMI s/p stent (11/25/23)
# Acute on chronic HF
# s/p syncope due to severe bradycardia (11/26/23)
DM1
CADs/p CABG x 2 (03/11/2020), multiple stents
HFrEF
HTN
hypothyroidism
CKD3
Lung sarcoidosis
RECOMMENDATIONS:
Unlikely Fluconazole-induced liver injury. Pt has been on fluconazole since 2020.
Check RUQ US.
Can hold fluconazole for now.
Start micafungin 100mg IV q24 as bridge until LFT's improve, then resume fluconazole with close follow-up of LFT's
Continue cefdinir suppressive tx.
--- NOTE | 2023-11-27 13:08 | CM ---
CM following re: discharge planning.
Reviewed pt's chart. per rounds meeting, pt transferred from IVU, intubated yesterday, extubated today to 4L NC of O2.
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
D/C plan: home with anticipated no needs vs outpatient cardiac rehab. to transport at discharge.
CM will follow with discharge plan updates as hospitalization progresses.
[2023-11-27] MEDS: MYCAMINE 105 MG IV (14:13)
--- NOTE | 2023-11-27 14:24 | PTCARENOTE ---
Assessment unchanged. VSS. Patient extubated at 1120. Presently weaned off o2. Saturation 96% on room air. Generalized aches and pains. Follow up abx as per Infectious disease. Await repeat renal lytes/panel at 1500hrs. Continue hourly i/o. Dopamine
presently off Heart rate 60bpm NSR with bp 102/55 (69). updated and continue with critical care teaching. hourly rounds, frequent patient safety checks and supportive cares ongoing.
--- NOTE | 2023-11-27 14:43 | W.PN.UPDATE ---
Update Note
Progress Note Update
Received a call from Dr. Bardales's office asking for updated records to be faxed to their office at [phone]. Also sharing most recent echo images via [employer]. Called back to Dr. Bardales's office and informed them they need to then
download images on their end.
[2023-11-27] MEDS: TYLENOL 650 MG PO ×2 (16:04→20:14)
[2023-11-27 16:16] LABS: Carbon Dioxide 28 mmol/L (22-30); Chloride 95 mmol/L (98-107); Potassium 4.1 mmol/L (3.5-5.1); Sodium 128 mmol/L (135-145)
[2023-11-27] MEDS: NOVOLOG FLEXPEN-HIGH RESISTANCE 4 UNITS SC (17:00)
--- NOTE | 2023-11-27 17:03 | PTCARENOTE ---
No new changes in assessment. VS follow up as per unit based protocol. Presently out of bed to chair eating dinner. Two person assist to chair. ECG and labs completed. Pain medications and management with follow up via [facility]. Continue ongoing rounds.
[2023-11-27 17:08] LABS: Glucose - Point of Care 232 mg/dl (70-99)
[2023-11-27] MEDS: LOVENOX 40 MG SC (17:19)
[2023-11-27 20:09] LABS: Glucose - Point of Care 375 mg/dl (70-99)
[2023-11-27] MEDS: NOVOLOG FLEXPEN 12 UNITS SC (20:14)
[2023-11-27] MEDS: RANEXA EXTENDED RELEASE 500 MG PO (20:14)
[2023-11-27] MEDS: OMNICEF 300 MG PO (20:14)
[2023-11-27] MEDS: FLEXERIL 5 MG PO (20:15)
--- NOTE | 2023-11-27 20:30 | PTCARENOTE ---
recd patient. assessment as documented. pt c/o 05/25 pain, PRN meds given, see MAR. oriented x3. SR on monitor, HR in 60s. on RA, denies SOB. lungs CTA. accucheck 375, ICU BIKE SHOP MANAGER aware, 12u insulin aspart ordered. coleman intact draining yellow urine.
at bedside, updated on plan of care. call culver within reach.
[2023-11-27] MEDS: MELATONIN 5 MG PO (23:49)
[2023-11-28] VITALS (16 sets, daily range): BP systolic 98–135; BP diastolic 56–75; PULSE 60; O2SAT 99; BMI 24.9
[2023-11-28 00:04] LABS: Glucose - Point of Care 81 mg/dl (70-99)
[2023-11-28 01:20] LABS: Glucose - Point of Care 50 mg/dl (70-99)
[2023-11-28] MEDS: DEXTROSE 50% SYRINGE 12.5 GRAMS IV (01:28)
[2023-11-28 01:40] LABS: Glucose - Point of Care 64 mg/dl (70-99)
[2023-11-28 01:59] LABS: Glucose - Point of Care 205 mg/dl (70-99)
[2023-11-28] MEDS: VALIUM INJECTION 5 MG IV (02:03)
--- NOTE | 2023-11-28 02:29 | PTCARENOTE ---
0100- pt c/o feeling clammy, blood sugar checked, 50. hypoglycemia protocol followed, repeat 64, 1/2 amp D50 given, repeat 20. pt also c/o back spasms, ICU LOADER SEMICONDUCTOR DIES notified, stat dose valium ordered and given. call culver within reach.
[2023-11-28 03:42] LABS: Glucose - Point of Care 221 mg/dl (70-99)
[2023-11-28] MEDS: SYNTHROID 112 MCG PO (05:11)
[2023-11-28 05:25] LABS: % Basophils 0.8 % (0-2); % Eosinophils 0.7 % (0-6); % Immature Granulocytes 0.2 % (0-0.5); % Lymphocytes 19.9 % (20.5-51.1); % Monocytes 12.2 % (1.7-9.3); % Neutrophils 66.2 % (42.2-75.2); Absolute Basophils 0.1 10^3/uL (0-0.2); Absolute Eosinophils 0.1 10^3/uL (0-0.7); Absolute Lymphocytes 1.7 10^3/uL (1.2-3.4); Absolute Neutrophils 5.5 10^3/uL (1.4-6.5); Hematocrit 34.2 % (37.0-47.0); Hemoglobin 11.9 g/dL (12.0-16.0); Mean Corp Hgb Conc. 34.8 g/dL (33.0-37.0); Mean Corpuscular Hgb 27.9 pg (27.0-31.0); Mean Corpuscular Volume 80.1 fL (81.0-99.0); Mean Platelet Volume 11.9 fL (7.4-10.4); Nucleated Red Blood Cells % 0 %; Platelet Count 152 10^3/uL (130-400); Red Blood Cell Count 4.27 10^6/uL (4.20-5.40); Red Cell Dist. Width 15.2 % (11.5-14.5); White Blood Cell Count 8.3 10^3/uL (4.8-10.8)
[2023-11-28 05:30] LABS: Glucose - Point of Care 227 mg/dl (70-99)
--- NOTE | 2023-11-28 05:31 | PTCARENOTE ---
AM labs sent. pt blood sugar rechecked. OOB to chair with assist x2. call culver within reach.
[2023-11-28 05:48] LABS: ALT (SGPT) 472 U/L (0-35); AST (SGOT) 492 U/L (14-36); Albumin 3.2 g/dl (3.5-5.0); Alkaline Phosphatase 128 U/L (38-126); Blood Urea Nitrogen 40 mg/dl (7-17); Calcium 8.7 mg/dl (8.4-10.2); Carbon Dioxide 30 mmol/L (22-30); Chloride 95 mmol/L (98-107); Direct Bilirubin 0.1 mg/dl (0.0-0.4); Estimated Creatinine Clearance 45 ml/min; Glucose 201 mg/dl (70-99); Potassium 4.1 mmol/L (3.5-5.1); Sodium 128 mmol/L (135-145); Total Bilirubin 0.6 mg/dl (0.2-1.3); Total Protein 5.5 g/dl (6.3-8.2); eGFR 54.06
--- NOTE | 2023-11-28 07:22 | W.PN.INTV ---
Today's Communication / Plan
Recommendations
Doing well, no events, stable on RA
PT/OT
Pain control
Cards following for further management
Transfer to tele, we will sign off upon transfer
Assessment
-
Patient is a 68-year-old female with past medical history for ASCVD status post CABG with sternum infection, sarcoid, Charcot foot disease presenting to ER with complaints of acute onset chest pain with radiation into the arm, and associated
diaphoresis and shortness of breath. She was admitted 11/25/2023, underwent emergent catheterization demonstrating multiple occluded stents and 100% occluded RCA. Underwent successful stenting of left main and significant worsening LV function
noted. Patient then developed continued chest discomfort on 11/26/202311/22 with sudden decompensation including episode of severe bradycardia and complete heart block. Code 9 was initiated, patient was intubated and placed on dopamine. She has
had a history of profound bradycardia with beta-ingrid in the past which almost required pacer but was never placed. She is now transferred to ICU for further management.
Acute on chronic ACS/NSTEMI
History of MVCAD s/p stent/CABG, near stent occlusion noted on cath/100% RCA
Acute symptomatic bradycardia with syncope/CHB now on dopamine
Unresponsiveness s/p intubation for airway protection/code 9
Chest pain
HFrEF : EF 25-30% by ventriculography and by echocardiogram
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
Severe/chronic back pain with fractures
Retinal detachment
Anemia
Thrombocytopenia
Sarcoidosis
Diabetes
Hypothyroid
CKD III
HTN, HLD, PVD
B/L charcot's
Osteopenia
H/o radial artery thrombosis
CAD w/ h/o 12 stents in past; s/p stent 07/29/23
Double bypass at [facility] 03/11/20
C/b sternal osteo s/p debridement, 2 wires removed, b/l flap (Dr Victor - thoracic surgeon - left [place]), Dr Carlos - Plastics 04/03
Two infections; boil at [facility] chest-debridement, removed rectus muscle to sternum-used skin sub in OR: re-opened x 2-3 months - abscessed 07/03
s/p debridement/L sternum removed/ribs involved d/t persistent osteomyelitis - follows ID - Dr. Angelita Jaramillo - [facility] 12/03
CT Showed (11/20/2020) - ordered by Dr Jaramillo/ID shows chronic infection in sternum 03/05; on chronic cefdinir/fluconazole
Plan
No current signs of metabolic encephalopathy or MS changes/following commands
Off sedation, feels foggy but able to answer questions
Pain control
RASS goals: 0
Hemodynamically stable, weaned off dopamine now
Cardiac history reviewed--extensive including CAD s/p 12 stents, CAB with sternal osteo complications
Cards eval noted--would not be a candidate for pacer given sternal wounds
She is on chronic suppressive abx
Known to Marlon
Prior ECHO reviewed indicating EF 25-30%/stage II DD, mod-severe PH, RWMAs
Resume home meds per cards, avoid BB given CHB
Monitor on telemetry
Oxygen needs: intubated due to unresponsiveness, extubated 11/27/23
Prior history of lung disease: She has history of pulm sarcoid, unclear if active
CXR showing edema, no prior chest CT
Supplemental O2 as indicated to maintain sats > 89%
Outpatient follow up
Diet advancement, tolerating
Aspiration precautions, HOB > 30 degrees
Speech therapy eval can be considered if at elevated risk
GI prophylaxis if indicated for mechanical ventilation >48 hours, prior history of GERD, stress ulcer formation in the critically ill
Creat at baseline, no history of renal disease
Hyponatremia noted, renal following
Diuresis ongoing, proBNP >27k
Void trials
Follow urine output, critical I/Os
Replete electrolytes as needed
No signs/symptoms suspicious for acute infectious etiology at this time
She is on chronic abx for sternal infection, resumed on home cefdinir/fluconazole
Follow fever trend, WBC count
CBC stable, no signs of bleeding or coagulopathy.
DVT prophylaxis as assessed based on risk, including mechanical SCDs
Can transfuse if indicated for Hb <7, plt < 10
INR WNL
H/o hypothyroidism, can continue on home synthroid dose
H/o type I diabetes, can continue on home meds, SS for coverage
DM DRAINLAYER consult for management
Resume on insulin pump
GOC discussions may be warranted if there is no ultimate plan
She is full code, we discussed advanced directives
Diagnostic Data
Chest X-Ray: 11/26/23- Endotracheal tube has been inserted with tip 6.0 cm above ivana. Radiographic findings suggesting development of interstitial edema since examination earlier this same date.
Evidence for small to moderate left pleural effusion, probably slightly increasing.
11/25/23- MODERATE ACUTE INTERSTITIAL CARDIOGENIC PULMONARY EDEMA.
03/16/21- No acute disease of the chest.
CT Scan:
Echo: 11/25/23- Normal left ventricular size and wall thickness LAD regional wall motion abnormality. With LV most vigorous at the base. Mid to distal inferior, inferolateral hypokinesis. Mid to distal lateral wall hypokinesis, mid to distal
anterior wall hypokinesis likely. LV ejection fraction is 25-30% by Lerma's method of discs. Stage II diastolic dysfunction suggestive of abnormal relaxation and increased filling pressures. Normal right ventricular size. Mildly reduced right
ventricular systolic function. Mitral valve opens normally. Thickened mitral valve leaflets. Mild to moderate mitral regurgitation. Trileaflet aortic valve. Aortic sclerosis without stenosis. Mild aortic
regurgitation. Tricuspid valve opens normally. Moderate to severe tricuspid regurgitation. Estimated pulmonary artery pressure of 53-58 mmHg. Assuming a right atrial pressure of 8 mmHg.
[facility] 11/25/23 - CONCLUSION
1. Successful stenting of diagonal branch with a 2.0 x 12 mm Rozel stent that was implanted at nominal pressures and postdilated with a 2.25 mm noncompliant balloon. The area of high-grade stenosis appeared to be in an area of stent overlap from
prior stenting of the diagonal branch. (I do not have access to full records to know prior diagonal stent history or LAD stent history).
2. Angiographically stable and patent GOYAL-LAD and SVG-PDA
3. Significant worsening of LV function when compared to prior echocardiogram ports from [facility]
PFT's:
Reports and relevant images were personally reviewed.
-----
Critical Care time 31 mins -- The patient is admitted for acute critical illness for the treatment of vital organ failure and/or prevention of further life-threatening conditions. Total care includes time spent in review of history, physical exam,
medications, hemodynamic/ventilator parameters, laboratory data, imaging and discussion with house staff, pharmacy, respiratory therapy, laundromat worker, and nursing.
Subjective Dataa
Subjective Data
Date of Service:
Date of Service: November 28, 2023
Chief Complaint: Receptionist/Telephone Operator Follow Up
Subjective:
No acute events ON, remains stable on RA
Sitting in chair, at bedside
C/o head fogginess
Objective Data
Data Reviewed
Vital Signs / I&O / Oxygen:
Vital Signs
Temp Pulse Resp BP Pulse Ox
97.8 F 63 18 108/60 96
11/28/23 07:01 11/28/23 07:00 11/28/23 07:00 11/28/23 07:00 11/28/23 07:00
Intake and Output
11/27/23 11/28/23 11/29/23
06:59 06:59 06:59
Intake Total 301.2 / 338.4 1344.7 / 1344.7
Output Total 2735 / 2810 2064 / 2064
Balance -2433.8 / -2471.6 -720.3 / -720.3
SaO2 [A/C] 100
SaO2 96
Nasal Cannula flow liters per 2
minute
Physical Exam
General: Comfortable and Other (NAD)
HEENT: Normocephalic, Anicteric and Moist Mucous Membranes
Cardiovascular: S1-S2, Regular Rhythm and Other (chest incision noted, healed)
Respiratory: Clear and Non-Labored Respirations
GI: Soft, Non Distended and Non Tender
Neurology: Awake, Alert, Oriented, AO x 3 and No Motor Deficits
Skin: Warm, Dry and Good Color
Labs/Micro/Reports
Lab Data
11/28/23 05:14
11/28/23 05:14
Microbiology
11/26/23 20:15 Blood/Venous Blood Culture - Preliminary
No Growth in 24 hours- Final report to follow
[2023-11-28 07:37] LABS: Glucose - Point of Care 206 mg/dl (70-99)
--- NOTE | 2023-11-28 07:43 | W.PN.HOSP.TC ---
Today's Communication/Plan
-
IV Lasix. Cardiac monitoring.
Assessment / Plan
Assessment / Plan
Physical exam:
General: Acutely ill
HEENT: Normocephalic, Atraumatic and Moist Mucous Membranes
Respiratory: Coarse crackles in the bases; Negative Wheezes or Rhonchi
Cardiac: Sternal scar, Regular Rhythm and S1/S2, no murmurs rubs or gallops
GI: Soft, Nontender and Nondistended
Musculoskeletal: Decreased range of motion in the back. Tenderness in the back. No Clubbing, No Cyanosis. Bilateral edema present lower extremities
Neuro: Alert oriented x 3, no gross neurological deficits.
Psych: Calm, normal judgment and insight.
A/P:
NSTEMI:
Status postcardiac cath on 11/24
Successful stenting of diagonal branch
Continue dual antiplatelet therapy aspirin and Plavix
Started on metoprolol XL but discontinued after cardiac event.
On statins
On Ranexa
Continue cardiac monitoring
Cardiology consult and follow-up appreciated
Discussed with at bedside
PT OT eval
Cardiorespiratory arrest:
ROSC
Bradycardia trigger event by [id number] beta-blockers at all
No need for pacemaker per cardiology
Status post intubated last evening
Started on dopamine--> off pressors
Cardiology on board
Acute hypoxic respiratory failure:
Off mechanical ventilation
Hypotension:
Resolved
Probably medications related
Acute systolic congestive heart failure:
IV diuretics, Lasix 40 mg twice a day
BNP upon admission
Monitor strict I/O
Monitor daily weight
Monitor renal function and electrolytes
Reviewed latest echocardiogram on our system
Continue guideline-directed medical therapy for heart failure (GDMT)
Fluid restriction
Salt restriction
Heart failure education
Follow up clinical response
Severe hyponatremia:
Monitoring sodium closely
Nephrology following
Sodium up to 128 today (from as low as 120)
Chronic sternal osteomyelitis:
On oral cefdinir--> ID consulted
ID change fluconazole to IV micafungin for now
Repeat culture during this hospitalization no growth
Elevated LFTs:
Monitor trend
Ultrasound right upper quadrant pending
Hepatitis screen pending
Holding fluconazole and statin
Acute on chronic back pain due to T12 and L2 acute fracture:
Continue pain meds
Reviewed MRI of the back
No evidence of infection
Might need to contemplate candidacy for kyphoplasty but needs to see how she does with pain meds and therapy.
Diabetes mellitus type 1:
Continue diabetic diet
Continue insulin pump but monitor sugars closely
Hypothyroidism:
Continue thyroid replacement
DVT prophylaxis:
SCDs
Lovenox
CODE STATUS:
Full code
Total time spent on today's encounter was 52 minutes which included time spent in counseling the patient/family regarding diagnosis and treatment plan as listed above, goals of care, and symptom management. Case was discussed with nursing staff,
specialists, and care coordinators/case management. All labs and imaging personally reviewed by me. Remainder the time spent in detailed review of previous records, lab data, imaging, and other medical provider documentation.
Anticipated Discharge: 24 - 48 hours
Subjective/Interval History
-
Date of Service: November 28, 2023
Patient sitting in the chair today. No chest pain. Complains of back pain but not as bad as before. No shortness of breath.
Objective Data
-
Labs:
Laboratory Results
11/28/23
05:14
WBC 8.3
Hgb 11.9 L
Hct 34.2 L
Plt Count 152
Sodium 128 L
Potassium 4.1
Chloride 95 L
Carbon Dioxide 30
BUN 40 H
Creatinine 1.1 H
Glucose 201 H
Calcium 8.7
Total Bilirubin 0.6
AST 492 H
ALT 472 H
Alkaline Phosphatase 128 H
Vital Signs:
Vital Signs
Temp Pulse Resp BP Pulse Ox
97.8 F 63 18 108/60 96
11/28/23 07:01 11/28/23 07:00 11/28/23 07:00 11/28/23 07:00 11/28/23 07:00
I&O
11/27/23 11/28/23 11/29/23
06:59 06:59 06:59
Intake Total 301.2 / 338.4 1344.7 / 1344.7
Output Total 2735 / 2810 2064
Balance -2433.8 / -2471.6 -720.3 / -720.3
[2023-11-28] MEDS: NOVOLOG FLEXPEN-HIGH RESISTANCE 4 UNITS SC (07:46)
[2023-11-28] MEDS: LANTUS 0.2 UNITS SC (07:47)
--- NOTE | 2023-11-28 07:47 | W.PN.CARDCBS ---
Addendum entered and electronically signed by Dina Mejia DO 11/28/23 09:56:
I saw and examined the patient.
The Hazardous Waste Technician's note was reviewed and I agree with the note.
Comment: Patient seen and examined. Feeling better this morning with no chest discomfort. She does have back discomfort which is slightly better out of bed into a chair. Denies worsening shortness of breath. Browning catheter removed this morning
and awaiting first void.
GEN: No distress, awake, alert, oriented x3. sitting in chair
HEENT: mmm
LUNGS: CTA B/L, no wheezes
CV: Reg, S1/S2, no murmur
EXT: No cyanosis, clubbing, edema
NEURO: grossly nonfocal
SKIN: Sternotomy scar
Plan:
-Hemodynamically better sitting out of bed to chair
-She received Valium this morning and does feel a little loopy but states back pain is slightly better.
-Improved respiratory status now on room air status post extubation on 11/27/2023. She does report some scratchiness of her throat but is tolerating diet
-Remains in sinus rhythm off of dopamine on review of tele overnight. Avoiding beta-ingrid moving forward, added to chart a severe adverse reaction. No indication for PPM at present. After discussing with primary felled seam operator chainstitch, reportedly has
history of profound bradycardia with beta-ingrid in the past, almost requiring pacemaker. [FYI-she also has history of adverse reaction to norvasc. continue cozaar, ranexa]
-continue asa, plavix
-At time of cath LVEDP was 45. Continue diuresis. Creatinine stable. Follow hyponatremia
-not candidate for SGLT2 inhibitor given type 1 diabetic and associated risk for euglycemic DKA
-Continue supportive care of acute compression fractures
-she is on chronic diflucan and cefdinir for chronic sternal wound infection. currently on micafungin due to elevated LFTs
-holding pravastatin given elevated LFTs. Reported intolerance to higher doses of statin and inability to tolerate Repatha
-for abd US today
-ok to transfer out of ICU from cardiac standpoint
Original Note:
Today's Communication / Plan
-
continue medical mgmt of CAD as able
rhythm stable overnight
continue diuresis
abd US today
Impression / Plan
-
.
PCP: Dr. Caitie Laird
Television Newscast Director: Dr. Mame Bardales ([facility])
Impression:
-Presented with chest pain
-Episode of severe bradycardia and complete heart block.
-VDRF, intubated during episode 11/25, extubated 11/26
-Elevated troponin, NSTEMI: Peak troponin 27.5 resulting in diag PCI 11/25/23
-Hyponatremia
-HFrEF : EF 25-30% by ventriculography and by echocardiogram
-Severe back discomfort with fractures
-CAD
h/o (now) 12 coronary stents
s/p CABG x 2 (GOYAL to LAD, SVG to RPDA) 03/11/2020
s/p PCI of D1 07/29/2023 and stenting at distal edge of prior stent with a 2.25 x 12 mm Donald stent
-HTN
-HLD
-Type I DM
-h/o lung sarcoidosis
-CKD 3
-h/o chronic sternal osteomyelitis
on chronic cefdinir/fluconazole
-h/o radial artery thrombosis
-Hypothyroidism
Echo 03/09/2020: EF 60 to 65%, mild AI, trace TR,
Echo 11/25/2023: EF 25 to 30%, LAD regional wall motion abnormality, LV most vigorous at base, mid to distal inferior, inferolateral hypokinesis, mid to distal lateral wall hypokinesis, mid to distal anterior wall hypokinesis, stage II diastolic
dysfunction, mild to moderate MR, aortic sclerosis, mild AR, moderate to severe TR, PAP 53 to 58 mmHg
Plan:
-Feeling better this morning. Reports feeling 'woozy' from getting Valium
-She was extubated 11/26
-Remains in sinus rhythm off of dopamine on review of tele overnight. Avoiding beta-ingrid moving forward, added to chart a severe adverse reaction. No indication for PPM at present. After discussing with primary felled seam operator chainstitch, reportedly has
history of profound bradycardia with beta-ingrid in the past, almost requiring pacemaker.
-she also has history of adverse reaction to norvasc. continue cozaar, ranexa
-continue asa, plavix
-At time of cath LVEDP was 45. Continue diuresis. Creatinine stable. Follow hyponatremia
-not candidate for SGLT2 inhibitor given type 1 diabetic and associated risk for euglycemic DKA
-Continue supportive care of acute compression fractures
-she is on chronic diflucan and cefdinir for chronic sternal wound infection. currently on micafungin due to elevated LFTs
-holding pravastatin given elevated LFTs. Reported intolerance to higher doses of statin and inability to tolerate Repatha
-for [facility] US today
-ok to transfer out of ICU from cardiac standpoint
Hospital course thus far:
-Patient presented with chest and back discomfort.
-ruled in for NSTEMI with peak trop 27.5 resulting in cath with diag PCI 11/25/23.
-echo with EF 25-30%, which was felt to be out of proportion to diag lesion noted by cath
-11/25 had episode of chest discomfort, flushing, and nausea improved s/p episode of vomiting
-lumbar spine MRI with acute L2 fracture, acute T12 fracture, no evidence for discitis or abscess, liver findings suspicious for hepatitis
-11/25 PM she developed symptomatic bradycardia with evidence of complete heart block. She never lost pulse or pressure but did become unresponsive. Did not respond to atropine but responded to initiation of IV dopamine. She was intubated during
the episode.
HPI: Jessica is a 68 year old female with PMH of CAD with extensive prior cardiac stenting and CABG x2, chronic HFpEF, HTN, HLD, type 1 DM, sarcoidosis, sternal osteomyelitis, and radial artery thrombosis who presented to [facility] for evaluation of chest
pain. She started with chest pain last evening and took a SL nitro which relieved her pain initially. She then went to bed, but again woke up around 4 AM with recurrent chest pain with radiation into her arm. She again took SL nitro, however this
did not relieve her pain. She came to [facility] for evaluation as she states these symptoms are consistent with her prior angina. On arrival to [facility], she was noted to have elevated troponin of 1.26. She was started on IV heparin and given SL nitro, but
continued to have chest pain and arm pain, so she was started on IV nitro. She reports since starting IV nitro, her chest pain has resolved, but she continues to have L arm pain. Echo being completed during interview. She also had elevated troponin
of 2540 and chest xray showed pulmonary edema. Cardiology consulted for evaluation given chest pain with significant coronary disease history.
Progress Note - Television Newscast Director
Subjective
Date of Service: November 28, 2023
Reports some mild chest/back discomfort. Denies shortness of breath. Reports feeling 'woozy'
Objective
Labs:
11/28/23 05:14
11/28/23 05:14
Labs
Hgb 11.9 g/dL (12.0-16.0) L 11/28/23 05:14
Hct 34.2 % (37.0-47.0) L 11/28/23 05:14
Plt Count 152 10^3/uL (130-400) 11/28/23 05:14
PT 17.0 Sec (11.4-14.6) H 11/26/23 21:50
PT Cancelled 11/26/23 21:50
INR 1.40 11/26/23 21:50
INR Cancelled 11/26/23 21:50
APTT 32.9 Sec (23.4-35.0) 11/26/23 21:50
Sodium 128 mmol/L (135-145) L 11/28/23 05:14
Potassium 4.1 mmol/L (3.5-5.1) 11/28/23 05:14
BUN 40 mg/dl (7-17) H 11/28/23 05:14
Creatinine 1.1 mg/dL (0.6-1.0) H 11/28/23 05:14
Glucose 201 mg/dl (70-99) H 11/28/23 05:14
Troponins
11/25/23 11/25/23 11/25/23
09:23 12:19 15:23
Troponin I Cancelled 10.300 H* D Cancelled
11/25/23 11/25/23 11/25/23
17:30 20:03 21:23
Troponin I Cancelled 26.000 H* D Cancelled
11/25/23 11/26/23 11/26/23
23:59 03:52 03:52
Troponin I Cancelled Cancelled 27.500 H*
11/26/23 11/26/23 11/26/23
04:00 09:24 14:43
Troponin I Cancelled 23.400 H* Cancelled
11/26/23 11/26/23 11/26/23
15:47 15:47 20:15
Troponin I Cancelled 24.200 H* 18.500 H*
11/26/23 11/27/23
21:50 03:59
Troponin I 17.200 H* 11.200 H* D
Vital Signs and I&O:
Vital Signs
Temp Pulse Resp BP Pulse Ox
97.8 F 63 18 108/60 96
11/28/23 07:01 11/28/23 07:00 11/28/23 07:00 11/28/23 07:00 11/28/23 07:00
Vital Signs
Temp Pulse Resp BP Pulse Ox
97.8 F 63 18 108/60 96
11/28/23 07:01 11/28/23 07:00 11/28/23 07:00 11/28/23 07:00 11/28/23 07:00
Intake & Output
11/25/23 11/26/23 11/27/23 11/28/23
07:59 07:59 07:59 07:59
Intake Total 610 / 610 338.4 / 375.6 1307.5 / 1307.5
Output Total 950 / 950 2810 / 2960 1989 / 1989
Balance -340 / -340 -2471.6 / -2584.4 -682.5 / -682.5
Physical Exam
Physical Exam
GEN: No distress, awake, alert, oriented x3. sitting in chair
HEENT: supple, mmm, eomi
LUNGS: CTA B/L, no wheezes
CV: Reg, S1/S2, no murmur
EXT: No cyanosis, clubbing, edema
NEURO: grossly nonfocal
SKIN: Warm, pink, dry. No rash. Sternotomy scar
[2023-11-28] MEDS: LIDOCAINE 4% PATCH 1 PATCH TOPICAL ×2 (07:52→12:06)
[2023-11-28] MEDS: RANEXA EXTENDED RELEASE 500 MG PO ×2 (07:53→19:46)
[2023-11-28] MEDS: PROTONIX 40 MG PO (07:53)
[2023-11-28] MEDS: LEXAPRO 5 MG PO (07:53)
[2023-11-28] MEDS: OMNICEF 300 MG PO ×2 (07:53→19:46)
[2023-11-28] MEDS: LASIX 40 MG IV ×2 (07:54→16:12)
[2023-11-28] MEDS: ASPIR LOW (ENTERIC COATED) 81 MG PO (07:54)
[2023-11-28] MEDS: PLAVIX 75 MG PO (07:54)
--- NOTE | 2023-11-28 08:00 | PTCARENOTE ---
Received pt sitting in the chair. She is awake and alert. Right wrist and right AC#20g protective catheters both flushed and patent. Weak pedal pulses, good radial pulses. Right groin dressing CDI. She is aware I will be removing her Browning catheter
and that she will have to call to use the BR. She verbalized her understanding. Dim breath sounds in the bases. Old scarring mid sternum AUDREY. +BSX4. No BM since admission. She stated she was passing gas. She sated she get like this when getting pain
medicine. Warm blanket provided for across her lower back for her chronic back pain, along with pillow. She was informed of the plan of care. Safe environment maintained.
--- NOTE | 2023-11-28 08:02 | W.PN.NEPH.PH ---
Today's Communication / Plan
-
Escalate Lasix to 40 mg IV twice daily
Assessment/Plan
-
IMP:
ACS s/p Stent D branch 11/24
ASCVD
Acute systolic and diastolic CHF 25-30%
mild to mod MR
mod to severe TR
Acute on chronic Hyponatremia-follows Dr Bliss out pt
DM-I
Benign Hypertension
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
Hypothyroidism
PLan:
A/w ACS known complex CAD s/p stent 11/24
hyponatremia-acute on chronic likely exaggerated by CHF : now at 128
may have underlying SIADH with SSRI use, recent back pain
U osmo 340, U na relatively low 33
would continue lasix IV but will increase to 40 mg IV twice daily
LVEDP was high at 44 suspect hyponatremia related to hypervolemia in setting of decompensated congestive heart failure
maintain FR 40 ounces/day
TSH and cortisol were ok
creatinine at 1.1
-
-
Date of Service: November 28, 2023
CC / HPI / ROS
-
Chief Complaint:
hyponatremia
History of Present Illness:
sodium slightly better at 128
Hemodynamically labile
cr at 1.1
Review of Systems:
Less short of breath no reported chest
Nonoliguric via Browning
Sedated
Weights unchanged
Labs
-
Labs:
WBC 8.3 10^3/uL (4.8-10.8) 11/28/23 05:14
RBC 4.27 10^6/uL (4.20-5.40) 11/28/23 05:14
Hgb 11.9 g/dL (12.0-16.0) L 11/28/23 05:14
Hct 34.2 % (37.0-47.0) L 11/28/23 05:14
Plt Count 152 10^3/uL (130-400) 11/28/23 05:14
Sodium 128 mmol/L (135-145) L 11/28/23 05:14
Potassium 4.1 mmol/L (3.5-5.1) 11/28/23 05:14
Chloride 95 mmol/L (98-107) L 11/28/23 05:14
Carbon Dioxide 30 mmol/L (22-30) 11/28/23 05:14
BUN 40 mg/dl (7-17) H 11/28/23 05:14
Creatinine 1.1 mg/dL (0.6-1.0) H 11/28/23 05:14
eGFR 54.06 11/28/23 05:14
Glucose 201 mg/dl (70-99) H 11/28/23 05:14
Calcium 8.7 mg/dl (8.4-10.2) 11/28/23 05:14
Phosphorus 5.2 mg/dl (2.5-4.5) H 11/26/23 03:52
Dmo-N-Rtapiqlfwzp Pept > 35659 pg/ml 11/26/23 15:47
Albumin 3.2 g/dl (3.5-5.0) L 11/28/23 05:14
Physical Exam
-
Vital Signs:
Vital Signs
Temp Pulse Resp BP Pulse Ox
97.8 F 69 18 108/60 96
11/28/23 07:01 11/28/23 07:54 11/28/23 07:00 11/28/23 07:54 11/28/23 07:00
Cardiovascular:: Regular rate and rhythm
Respiratory:: Bilateral: Coarse
Lung Excursion:: Normal
Abdomen:: Nontender and Soft
Bowel Sounds:: Normal
Extremity Edema:: None: Bilateral:
Browning Catheter: Yes
--- NOTE | 2023-11-28 09:16 | W.PN.ID1 ---
Date of Service
Date of Service: November 28, 2023
Today's Communication
Continue Micafungin, cefdinir.
Assessment / Plan
# Chronic sternal osteomyelitis
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
- Follows with Dr. Oh
# Acute elevated AST and ALT
- Trending up
# NSTEMI s/p stent (11/25/23)
# Acute on chronic HF
# s/p syncope due to severe bradycardia (11/26/23)
DM1
CADs/p CABG x 2 (03/11/2020), multiple stents
HFrEF
HTN
hypothyroidism
CKD3
Lung sarcoidosis
RECOMMENDATIONS:
Unlikely Fluconazole-induced liver injury. Pt has been on fluconazole since 2020.
RUQ US pending
Can hold fluconazole for now.
LFT's stable
Continue micafungin 100mg IV q24 (d2) as bridge until LFT's improve, then resume fluconazole with close follow-up of LFT's
Continue cefdinir suppressive tx.
Chief Complaint
-: Other (chronic sternal osteo)
Subjective / Review of Systems
Appetite poor
Vital Signs / Physical Exam
Vital Signs
Vital Signs
Temp Pulse Resp BP Pulse Ox
97.8 F 69 18 108/60 96
11/28/23 07:01 11/28/23 07:54 11/28/23 07:00 11/28/23 07:54 11/28/23 07:00
Physical Exam
Constitutional: No Acute Distress
Cardiovascular: Regular Rate and S1/S2
Gastrointestinal: Soft, Non Tender and Non Distended
Wound: Other (sternum: no open wound, no erythema)
Objective Data
Lab Data
Lab Results
11/28/23 05:14
11/28/23 05:14
PT 17.0 Sec (11.4-14.6) H 11/26/23 21:50
PT Cancelled 11/26/23 21:50
INR 1.40 11/26/23 21:50
INR Cancelled 11/26/23 21:50
APTT 32.9 Sec (23.4-35.0) 11/26/23 21:50
Estimated Creat Clear 45 ml/min 11/28/23 05:14
Lactic Acid 1.3 mmol/L (0.7-2.0) 11/27/23 04:00
Total Bilirubin 0.6 mg/dl (0.2-1.3) 11/28/23 05:14
AST 492 U/L (14-36) H 11/28/23 05:14
ALT 472 U/L (0-35) H 11/28/23 05:14
Alkaline Phosphatase 128 U/L (38-126) H 11/28/23 05:14
C-Reactive Protein 44.00 mg/L (0.0-10.00) H 11/26/23 15:40
Most recent labs reviewed.
Micro Results:
11/26/23 20:15 Blood Culture - Preliminary
Blood/Venous No Growth in 24 hours- Final report to follow
11/25/23 CXR: MODERATE ACUTE INTERSTITIAL CARDIOGENIC PULMONARY EDEMA.
11/26/23 MRI lumbar: No MRI evidence for acute infectious discitis or epidural abscess in the lumbar spine. 2. ACUTE INFERIOR ENDPLATE FRACTURE of L2 with mild to moderate loss of vertebral body height and retropulsion of the posterior inferior
endplate into the anterior epidural space causing mild central canal stenosis and moderate bilateral neural foraminal narrowing. 3. ACUTE SUPERIOR ENDPLATE FRACTURE of T12 with mild loss of vertebral body height.
--- NOTE | 2023-11-28 10:50 | PN.DE.MGMTRT ---
Insulin Management
- -
11/27/2023: Diabetes Management Consult Follow up
Patient admitted with chest pain. PMH: CAD with extensive prior cardiac stenting and CABG x2, chronic HFpEF, HTN, HLD, Hypothyroidism, GERD, Sarcoidosis, T1DM (since age 20), radial artery thrombosis and sternum Infection/Osteomyelitis s/p Multiple
Surgeries and on Lifelong Abx.
Pt uses Medtronic 680G with Guardian sensor novolog insulin and Quick Sets. She routinely sees Endo Dr. Harris Cazares in [place].
Pt is awake, A/O x3, sitting out of bed in chair, able to discuss insulin pump and glucose control. at bedside.
Had Cardiac Cath 11/24.
11/25 patient had episode of bradycardia, code 9 called, required intubation, insulin pump removed and sent home with . Received 20 units lantus this AM with 4 units insulin at breakfast. Patient now NPO for abdominal ultrasound. Discussed
with patient, will resume insulin pump when she returns from abdominal ultrasound. At that time she will insert new sensor and infusion set. Basal insulin will be at 25% of normal basal rate, temporary basal which will on its own, as she
does have lantus on board.
Pump settings as follows:
Basal 12am -12am 0.750
24 total basal 18 units.
[id number] - 12am 1:73
ICR
12am 1:6.5
11am 1:6
4 pm 1:6
7 pm 1:5.5
Target 85-120
Insulin duration time 2.5hrs
Diabetes History
- -
Type of Diabetes: 1
Pre-Admission Diabetes Regimen
11/28/23
05:14
Creatinine 1.1 H
Lab Results
Hemoglobin A1c 7.0 % (4.0-5.6) H 11/25/23 04:38
Insulin Pump Settings
IP Diabetes Regimen
11/27/23 11/27/23 11/27/23
16:56 19:57 23:53
Glucose
POC Glucose 232 H 375 H 81
11/28/23 11/28/23 11/28/23
01:04 01:25 01:47
Glucose
POC Glucose 50 L* 64 L 205 H
11/28/23 11/28/23 11/28/23
03:29 05:14 05:19
Glucose 201 H
POC Glucose 221 H 227 H
11/28/23
07:27
Glucose
POC Glucose 206 H
Patient Education
[2023-11-28 11:59] LABS: Glucose - Point of Care 348 mg/dl (70-99)
--- NOTE | 2023-11-28 12:23 | PTCARENOTE ---
Clarified with construction skills teacher Cassandra Neely regarding the carbohydrate discrepancies between the menu and the meal ticket so the pt knows how to program her insulin pump.
[2023-11-28 12:27] LABS: Glucose - Point of Care 290 mg/dl (70-99)
[2023-11-28] MEDS: PT'S OWN INSULIN PUMP - NovoLOG 10 UNIT SC (12:45)
--- NOTE | 2023-11-28 13:32 | CM ---
CM following re: discharge planning.
Reviewed pt's chart,met with pt and pt's at bedside.
PT and OT evaluations noted - acute vs SNF level of care recommended. pt expressed her disappointment feelings regarding going and staying at rehab. pt thoughts she will go to outpatient cardiac rehab. CM explained the benefits of physical
rehabilitation and pt expressed her understanding. pt preferred [facility]. Also, pt expressed her fallings that by tomorrow she might be doing better with PT/OT.
A referral to [facility] made. Awaiting for determination.
D/c plan: [facility] if qualified.
CM will follow with discharge plan updates as hospitalization progresses
--- NOTE | 2023-11-28 13:52 | TRANSFER ---
Report called to Randy DAVIDSON. Pt to be transferred via W/C to room 436-2.
[2023-11-28] MEDS: MYCAMINE 105 MG IV (15:12)
[2023-11-28 15:13] LABS: Glucose - Point of Care 335 mg/dl (70-99)
--- NOTE | 2023-11-28 15:49 | PN.DE.MGMTRT ---
Insulin Management
- -
Diabetes Management Update
Patients nurse TT glucose 335. Returned to see patient. Temporary basal stopped. Infusion set site checked, left abdomen. Approximately the size of a computer mouse tissue is swollen and discolored. Patient states she puts all of her infusion
sets there. Instructed patient on importance of rotating infusion sites so one area does not have scar tissue. Correction bolus taken via pump. If glucose does not trend down in one hour patient to change infusion set. She uses the 6 day
infusion sets. Sensor is still in warm up mode, due for calibration in 30 minutes. Discussed with nurse.
Diabetes History
- -
Type of Diabetes: 1
Pre-Admission Diabetes Regimen
11/28/23
05:14
Creatinine 1.1 H
Lab Results
Hemoglobin A1c 7.0 % (4.0-5.6) H 11/25/23 04:38
Insulin Pump Settings
IP Diabetes Regimen
11/27/23 11/27/23 11/27/23
16:56 19:57 23:53
Glucose
POC Glucose 232 H 375 H 81
11/28/23 11/28/23 11/28/23
01:04 01:25 01:47
Glucose
POC Glucose 50 L* 64 L 205 H
11/28/23 11/28/23 11/28/23
03:29 05:14 05:19
Glucose 201 H
POC Glucose 221 H 227 H
11/28/23 11/28/23 11/28/23
07:27 11:48 12:16
Glucose
POC Glucose 206 H 348 H 290 H
11/28/23
15:12
Glucose
POC Glucose 335 H
Meal type: Lunch
Meal type: Breakfast
Amount consumed: 80%
Amount consumed: 40%
Patient Education
[2023-11-28 15:56] LABS: Glucose - Point of Care 401 mg/dl (70-99)
[2023-11-28] MEDS: ROXICODONE 5 MG PO (16:11)
[2023-11-28] MEDS: MIRALAX 17 GRAMS PO (16:11)
--- NOTE | 2023-11-28 16:50 | PTCARENOTE ---
pt transferred from icu. states 8 pain in lower back. pt also states having constipation. MD made aware. pain med ordered and given. pt oob in chair. accu check done as resulted cris mark notified. she came to see pt and adjusted her
insulin pump. recheck hour later elevated high glucose lab sent.
[2023-11-28 17:00] LABS: Glucose 345 mg/dl (70-99)
[2023-11-28] MEDS: PT'S OWN INSULIN PUMP - NovoLOG 13 UNIT SC (17:07)
[2023-11-28] MEDS: LOVENOX 40 MG SC (17:36)
[2023-11-28 19:08] LABS: Hepatitis B Surface Antigen Negative (Negative)
[2023-11-28 19:16] LABS: Hepatitis A IgM Antibody Negative (Negative); Hepatitis B Core Ab, IgM Negative (Negative)
[2023-11-28 19:26] LABS: Hepatitis B Surface Antibody Negative
[2023-11-28] MEDS: SENOKOT 8.6 MG PO (19:46)
[2023-11-28] MEDS: ROXICODONE 10 MG PO (20:46)
[2023-11-28 21:11] LABS: Glucose - Point of Care 120 mg/dl (70-99)
[2023-11-28] MEDS: PT'S OWN INSULIN PUMP - NovoLOG SC (22:00)
[2023-11-29] VITALS (9 sets, daily range): BP systolic 121–159; BP diastolic 63–89; BMI 24.5
[2023-11-29 03:14] LABS: Glucose - Point of Care 44 mg/dl (70-99)
[2023-11-29 03:39] LABS: Glucose - Point of Care 60 mg/dl (70-99)
[2023-11-29 03:59] LABS: Glucose - Point of Care 66 mg/dl (70-99)
[2023-11-29 04:16] LABS: Glucose - Point of Care 98 mg/dl (70-99)
[2023-11-29] MEDS: SYNTHROID 112 MCG PO (04:17)
--- NOTE | 2023-11-29 04:22 | GLUCOSE ---
SITUATION:
ON 11/27 at 0104 pt accucheck=50. pt also restarted insulin pump. per protocol to recheck accucheck at 0300.
BACKGROUND:
pt accucheck = 40, per our machine.
ASSESSMENT:
pt blood sugar= 40 had OJ, recheck accucheck=60. then recheck=66 (pt did not finish OJ). had her drink it all then recheck=98. pt pump said 122
RECOMMENDATION: per protocol to recheck in 2hrs x2, then at 0300. grain shipper aware.
[2023-11-29 05:55] LABS: Glucose - Point of Care 144 mg/dl (70-99)
--- NOTE | 2023-11-29 07:52 | PN.DE.MGMTRT ---
Insulin Management
- -
11/29/2023: Diabetes Management Consult Follow up
Patient admitted with chest pain. PMH: CAD with extensive prior cardiac stenting and CABG x2, chronic HFpEF, HTN, HLD, Hypothyroidism, GERD, Sarcoidosis, T1DM (since age 20), radial artery thrombosis and sternum Infection/Osteomyelitis s/p Multiple
Surgeries and on Lifelong Abx.
Pt uses Medtronic 680G with Guardian sensor novolog insulin and Quick Sets. She routinely sees Endo Dr. Harris Cazares in [place].
Pt is awake, A/O x3, sitting out of bed in chair, able to discuss insulin pump and glucose control. at bedside.
Had Cardiac Cath 11/24.
11/25 patient had episode of bradycardia, code 9 called, required intubation, insulin pump removed and sent home with .
11/27 Received 20 units lantus this AM with 4 units insulin at breakfast. Patient now NPO for abdominal ultrasound. Discussed with patient, will resume insulin pump when she returns from abdominal ultrasound. At that time she will insert new
sensor and infusion set. Basal insulin will be at 25% of normal basal rate, temporary basal which will on its own, as she does have lantus on board.
Pump settings as follows:
Basal 12am -12am 0.750
24 total basal 18 units.
[id number] - 12am 1:73
ICR
12am 1:6.5
11am 1:6
4 pm 1:6
7 pm 1:5.5
Target 85-120
Insulin duration time 2.5hrs
3:30pm Patients nurse TT glucose 335. Returned to see patient. Temporary basal stopped. Infusion set site checked, left abdomen. Approximately the size of a computer mouse tissue is swollen and discolored. Patient states she puts all of her
infusion sets there. Instructed patient on importance of rotating infusion sites so one area does not have scar tissue. Correction bolus taken via pump. If glucose does not trend down in one hour patient to change infusion set. She uses the 6
day infusion sets. Sensor is still in warm up mode, due for calibration in 30 minutes. Discussed with nurse.
11/28 Patient glucose trended down to 44 @ 3:13 this AM, treated 3 times with juice, glucose up to 98, @ 5am glucose 144. At dinner patient too 13 units bolus for meal. she did not change the infusion set. Will discuss again. Will make no change
to basal rate.
Diabetes History
- -
Type of Diabetes: 1
Pre-Admission Diabetes Regimen
Lab Results
Hemoglobin A1c 7.0 % (4.0-5.6) H 11/25/23 04:38
Insulin Pump Settings
IP Diabetes Regimen
11/28/23 11/28/23 11/28/23
11:48 12:16 15:12
Glucose
POC Glucose 348 H 290 H 335 H
11/28/23 11/28/23 11/28/23
15:55 16:42 21:09
Glucose 345 H
POC Glucose 401 H 120 H
11/29/23 11/29/23 11/29/23
03:13 03:37 03:58
Glucose
POC Glucose 44 L* 60 L 66 L
11/29/23 11/29/23
04:15 05:54
Glucose
POC Glucose 98 144 H
Meal type: Dinner
Meal type: Lunch
Amount consumed: 80%
Amount consumed: 80%
Patient Education
--- NOTE | 2023-11-29 08:26 | CON.MD ---
Documented by User: Collette Batres PA-C 11/29/23 16:48
Consultation - Medical
-
Referring Provider: Dr. Tabor
Chief Complaint: chest pain, ACS, debility
History of Present Illness: This is a 68-year-old woman with complicated PMH of ( Chronic back pain with fractures, HFrEF : EF 25-30% by ventriculography and by echocardiogram, CKD 3, history of lung sarcoidosis, type 1 diabetes, HLD, HTN,
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
with back and chest pain as well as dyspnea.
On arrival to ER, she was noted to have elevated troponin of 1.26. She was started on IV heparin and given SL nitro, but continued to have chest pain and arm pain, so she was started on IV nitro. She reports since starting IV nitro, her chest
pain has resolved, but she continues to have L arm pain. She also had elevated troponin of 2540 and chest xray showed pulmonary edema. Cardiology consulted for evaluation given chest pain with significant coronary disease history.
Ruled in for NSTEMI with peak trop 27.5, she underwent invasive coronary angiography on 11/25/2023 with intervention on a diagonal branch. LV systolic function was found to be severely reduced by echo (EF 25-30%). 11/25 - had episode of chest
discomfort, flushing, and nausea improved s/p episode of vomiting. She developed profound bradycardia after initiating beta-ingrid and required dopamine infusion and intubation for airway protection. Reportedly had similar intolerance to
beta-ingrid in the past per her primary dietitian teacher, will not resume here. Wean dopamine as heart rate and blood pressure allow. Continue aspirin/Plavix and high intensity statin for medical management of CAD with ranolazine as antianginal
Echo 03/09/2020: EF 60 to 65%, mild AI, trace TR,
Echo 11/25/2023: EF 25 to 30%, LAD regional wall motion abnormality, LV most vigorous at base, mid to distal inferior, inferolateral hypokinesis, mid to distal lateral wall hypokinesis, mid to distal anterior wall hypokinesis, stage II diastolic
dysfunction, mild to moderate MR, aortic sclerosis, mild AR, moderate to severe TR, PAP 53 to 58 mmHg
Past Medical History: Chronic back pain with fractures, HFrEF : EF 25-30% by ventriculography and by echocardiogram, CKD 3, history of lung sarcoidosis, type 1 diabetes, HLD, HTN, hypothyroidism, chronic sternal osteomyelitis on chronic
cefdinir/fluconazole, history of radial artery thrombosis
Procedure History: 12 coronary stents, s/p CABG x 2 (GOYAL to LAD, SVG to RPDA) 03/11/2020, s/p PCI of D1 07/29/2023 and stenting at distal edge of prior stent with a 2.25 x 12 mm [place] stent
Family History: non contributory
Social History:
Functional Level Premorbidly: Independent with all activities
Functional Level Currently: Bed mobility -supervision, ambulating 25 feet x1 + 20 feet x 1 with rolling walker at min assist, ADLs-min assist Min -mod assist for functional transfers. Therapy on hold due to chest pain pending evaluation by cardio
Tobacco: former, over 60 years ago
Alcohol: Denies
Drug use: Denies
Lives with: spouse
24-hour assistance available:
Number of floors: 2
# steps to enter:2
# steps to second floor: FF
Potential First floor set up:
Driving: ?
Occupation: retired
�
Allergies:
Allergy/AdvReac Type Severity Reaction Status Date / Time
amlodipine Allergy Unknown Verified 11/25/23 22:25
cannabidiol (CBD) extract Allergy Unknown Verified 11/25/23 22:25
ciprofloxacin Allergy Nausea / Verified 11/25/23 04:26
Vomiting
evolocumab Allergy hair loss Verified 11/25/23 22:25
[From Repatha Pushtronex]
metoprolol Allergy HEART BLOCK Verified 11/27/23 23:46
rosuvastatin [From Crestor] Allergy cramping Verified 11/25/23 22:25
in legs
sulfamethoxazole Allergy Nausea / Verified 11/25/23 04:26
[From Bactrim] Vomiting
tramadol Allergy Nausea / Verified 11/25/23 04:26
Vomiting
trimethoprim [From Bactrim] Allergy Nausea / Verified 11/25/23 04:26
Vomiting
Review of Systems:
Constitutional: (x) Normal _
Eye: (x) Normal _
Ear/Nose/Throat: (x) Normal _
Respiratory: (x) Normal _
Cardiovascular: (x) chest pain, cabg
Gastrointestinal: (x) Normal _
Genitourinary: (x) Normal _
Musculoskeletal: (x) Normal _
Integumentary: (x) Normal _
Neurologic: (x) normal
Psychiatric: (x) Normal _
Endocrine: (x) Normal _
Hematologic/Lymphatic: (x) Normal _
Allergic/Immunologic: (x) Normal _
Medications:
Active Current Visit Medication List
Category Date Time Status
Acetaminophen [Tylenol] Med 11/25/23 09:23 Hold
650 mg PO Q4HPRN PRN
Aspirin Low Dose EC [Aspir Low (Enteric Coated)] Med 11/26/23 08:00 Active
81 mg PO DAILY
Bisacodyl [Dulcolax] Med 11/28/23 15:42 Active
10 mg RECTAL DAILYPRN PRN
Cefdinir [Omnicef] Med 11/25/23 09:23 Active
300 mg PO BID
Clopidogrel Bisulfate [Plavix] Med 11/26/23 08:00 Active
75 mg PO DAILY
Cyclobenzaprine HCl [Flexeril] Med 11/26/23 10:14 Active
5 mg PO Q8HPRN PRN
Dextrose 50%-Water [Dextrose 50% Syringe] Med 11/26/23 22:17 Active
12.5 grams IV [id number] PRN
Enoxaparin Sodium [Lovenox] Med 11/26/23 18:00 Active
40 mg SC QPM
Escitalopram Oxalate [Lexapro] Med 11/27/23 08:00 Active
5 mg PO DAILY
Fluconazole [Diflucan] Med 11/25/23 09:23 Hold
200 mg PO DAILY
Flush (0.9% Sodium Chloride) [Flush (Nss)] Med 11/25/23 10:00 Active
See Dose Instructions IV PER PROTOCOL
Furosemide [Lasix] Med 11/28/23 16:00 Active
40 mg IV BID AT 0800,1600
Glucagon [GlucaGen] Med 11/26/23 22:17 Active
1 mg IM PRN PRN
Levothyroxine [Synthroid] Med 11/25/23 09:23 Active
112 mcg PO DAILY@0600
Lidocaine [Lidocaine 4% Patch] Med 11/28/23 10:45 Active
2 patch TOPICAL DAILY
Losartan [Cozaar] Med 11/26/23 08:00 Hold
25 mg PO DAILY
Micafungin Sodium [Mycamine] 100 mg Med 11/27/23 14:00 Active
Dextrose 5%/Water 100 ml [D5w] 100 ml
IV Q24H
Nitroglycerin Sublingual [Nitrostat (Sublingual)] Med 11/25/23 05:17 Active
0.4 mg SL [id number] PRN
Ondansetron HCl [Zofran] Med 11/25/23 08:00 Active
4 mg PO Q8HPRN PRN
Oxycodone [Roxicodone] Med 11/28/23 15:39 Active
10 mg PO Q4HPRN PRN
Oxycodone [Roxicodone] Med 11/28/23 15:38 Active
5 mg PO Q4HPRN PRN
Pantoprazole [Protonix] Med 11/25/23 09:23 Active
40 mg PO DAILY
Polyethylene Glycol Powder [Miralax] Med 11/28/23 16:00 Active
17 grams PO DAILY
Pravastatin Sodium [Pravachol] Med 11/25/23 09:23 Hold
10 mg PO DAILY
Pt's Own Ins. Pump Aspart [PT'S OWN INSULIN PUMP - Med 11/28/23 12:45 Active
NovoLOG]
See Dose Instructions SC ACHS
Pt's Own Ins. Pump Aspart [PT'S OWN INSULIN PUMP - Med 11/28/23 10:56 Active
NovoLOG]
See Dose Instructions SC PRN PRN
Ranolazine Extended Release [Ranexa Extended Release] Med 11/25/23 09:23 Active
500 mg PO BID
Remove Patch [Remove Lidocaine Patch] Med 11/27/23 20:00 Active
See Dose Instructions REMOVE DAILY@2000
Sennosides [Senokot] Med 11/28/23 20:00 Active
8.6 mg PO BID
Vitals:
Temp Pulse Resp BP Pulse Ox
98.0 F 79 18 132/78 93
11/29/23 15:00 11/29/23 15:00 11/29/23 15:00 11/29/23 15:00 11/29/23 15:00
Height 5 ft 6 in
Actual Weight 68.719 kg
Body Mass Index (BMI) 24.5
Lab Results
Labs
WBC 8.3 10^3/uL (4.8-10.8) 11/28/23 05:14
RBC 4.27 10^6/uL (4.20-5.40) 11/28/23 05:14
Hgb 11.9 g/dL (12.0-16.0) L 11/28/23 05:14
Hct 34.2 % (37.0-47.0) L 11/28/23 05:14
MCV 80.1 fL (81.0-99.0) L 11/28/23 05:14
MCH 27.9 pg (27.0-31.0) 11/28/23 05:14
MCHC 34.8 g/dL (33.0-37.0) 11/28/23 05:14
RDW 15.2 % (11.5-14.5) H 11/28/23 05:14
Plt Count 152 10^3/uL (130-400) 11/28/23 05:14
MPV 11.9 fL (7.4-10.4) H 11/28/23 05:14
Abs Immat Gran (auto) 0.0 10^3/uL (0-0.05) 11/28/23 05:14
Absolute Neuts (auto) 5.5 10^3/uL (1.4-6.5) 11/28/23 05:14
Absolute Lymphs (auto) 1.7 10^3/uL (1.2-3.4) 11/28/23 05:14
Absolute Monos (auto) 1.0 10^3/uL (0.1-0.6) H 11/28/23 05:14
Absolute Eos (auto) 0.1 10^3/uL (0-0.7) 11/28/23 05:14
Absolute Basos (auto) 0.1 10^3/uL (0-0.2) 11/28/23 05:14
Immature Gran % 0.2 % (0-0.5) 11/28/23 05:14
Neutrophils % 66.2 % (42.2-75.2) 11/28/23 05:14
Lymphocytes % 19.9 % (20.5-51.1) L 11/28/23 05:14
Monocytes % 12.2 % (1.7-9.3) H 11/28/23 05:14
Eosinophils % 0.7 % (0-6) 11/28/23 05:14
Basophils % 0.8 % (0-2) 11/28/23 05:14
Nucleated RBC % 0 % 11/28/23 05:14
PT 17.0 Sec (11.4-14.6) H 11/26/23 21:50
PT Cancelled 11/26/23 21:50
INR 1.40 11/26/23 21:50
INR Cancelled 11/26/23 21:50
APTT 32.9 Sec (23.4-35.0) 11/26/23 21:50
pH 7.48 (7.35-7.45) H 11/27/23 04:03
pCO2 35 mmHg (32-35) 11/27/23 04:03
pO2 132 mmHg (83-108) H 11/27/23 04:03
HCO3 26.1 mmol/L (21-28) 11/27/23 04:03
Base Excess 2.8 mmol/L 11/27/23 04:03
ABG O2 Sat (Measured) 99.9 % (94-98) H 11/27/23 04:03
Potassium 4.7 mMOL/L (3.5-5.1) 11/26/23 23:05
O2 Delivery Level 11/27/23 04:03
Sodium 128 mmol/L (135-145) L 11/28/23 05:14
Potassium 4.1 mmol/L (3.5-5.1) 11/28/23 05:14
Chloride 95 mmol/L (98-107) L 11/28/23 05:14
Carbon Dioxide 30 mmol/L (22-30) 11/28/23 05:14
BUN 40 mg/dl (7-17) H 11/28/23 05:14
Creatinine 1.1 mg/dL (0.6-1.0) H 11/28/23 05:14
Estimated Creat Clear 45 ml/min 11/28/23 05:14
eGFR 54.06 11/28/23 05:14
Glucose 345 mg/dl (70-99) H 11/28/23 16:42
Hemoglobin A1c 7.0 % (4.0-5.6) H 11/25/23 04:38
Lactic Acid 1.3 mmol/L (0.7-2.0) 11/27/23 04:00
Calcium 8.7 mg/dl (8.4-10.2) 11/28/23 05:14
Ionized Calcium 1.14 mMOL/L (1.15-1.33) L 11/26/23 23:05
Phosphorus 5.2 mg/dl (2.5-4.5) H 11/26/23 03:52
Magnesium 2.1 mg/dl (1.6-2.3) 11/27/23 03:59
Total Bilirubin 0.6 mg/dl (0.2-1.3) 11/28/23 05:14
Direct Bilirubin 0.1 mg/dl (0.0-0.4) 11/28/23 05:14
AST 492 U/L (14-36) H 11/28/23 05:14
ALT 472 U/L (0-35) H 11/28/23 05:14
Alkaline Phosphatase 128 U/L (38-126) H 11/28/23 05:14
Ammonia < 9 umol/L (9-30) L 11/26/23 15:47
Creatine Kinase 904 U/L (30-135) H 11/25/23 12:19
Troponin I 11.200 ng/ml H* D 11/27/23 03:59
C-Reactive Protein 44.00 mg/L (0.0-10.00) H 11/26/23 15:40
Ptw-L-Apblblchqth Pept > 72138 pg/ml 11/26/23 15:47
Total Protein 5.5 g/dl (6.3-8.2) L 11/28/23 05:14
Albumin 3.2 g/dl (3.5-5.0) L 11/28/23 05:14
Triglycerides 77 mg/dl (10-149) 11/26/23 21:50
Total Cholesterol 163 mg/dl (50-199) 11/26/23 03:52
LDL Cholesterol, Calc 47 mg/dl 11/26/23 03:52
VLDL Cholesterol, Calc 17 mg/dl (0-30) 11/26/23 03:52
HDL Cholesterol 99 mg/dl 11/26/23 03:52
Procalcitonin 0.09 ng/ml (0.0-0.25) 11/26/23 15:47
TSH (Reflex) 0.80 uIU/ml (0.47-4.68) 11/25/23 04:38
Random Cortisol 36.9 ug/dl 11/25/23 04:38
Urine Osmolality 340 mOsm/kg (300-900) 11/25/23 21:42
Urine Osmolality Cancelled 11/25/23 21:42
Urine Creatinine 43.400 mg/dl 11/25/23 21:42
Urine Sodium 33 mmol/L (30-90) 11/25/23 21:42
Urine Sodium Cancelled 11/25/23 21:42
Hepatitis A IgM Ab Negative (Negative) 11/27/23 03:59
Hep Bs Antigen Negative (Negative) 11/27/23 03:59
Hep Bs Antibody Negative 11/27/23 03:59
Hep B Core IgM Ab Negative (Negative) 11/27/23 03:59
Hepatitis C Antibody Negative (Negative) 11/25/23 12:19
POC Glucose 144 mg/dl (70-99) H 11/29/23 05:54
POC ACT Low Range > 397 Seconds (116-155) H 11/25/23 14:46
Diagnostic Results: as per HPI
Assessment 68-year-old woman with complicated PMH of ( Chronic back pain with fractures, HFrEF : EF 25-30% by ventriculography and by echocardiogram, CKD 3, history of lung sarcoidosis, type 1 diabetes, HLD, HTN, hypothyroidism, chronic sternal
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
Plan
PT/OT to increase independence with ADLs, improve balance, coordination, endurance, strength, mobility, community reintegration, decreased burden of care on others and family education.
CAD: coronary angiography on 11/25/2023 with intervention on a diagonal branch. continue care per cardio
Chronic sternal wound infection: chronic diflucan and cefdinir. Currently on micafungin due to elevated LFTs
HTN: Losartan 25mg qd
DM: Insulin Pump. not candidate for SGLT2 inhibitor given type 1 diabetic and associated risk for euglycemic DKA
HLD: Pravastatin 10mg qd- on hold given elevated LFTs. Reported intolerance to higher doses of statin and inability to tolerate Repatha. For abdominal US today
Anemia: Likely multifactorial.� Continue to monitor.
Hyponatremia�acute on chronic, likely exacerbated by CHF-Per nephrology�may have underlying SIADH with SSRI use, recent back pain.(U osmo 340, U na relatively low 33).LVEDP was high at 44 suspect hyponatremia related to hypervolemia in setting of
decompensated congestive heart failure
maintain FR 40 ounces/day
Psych: consult psych ,lexapro 5mg qd.
Skin: monitor for pressure sores/rashes/lesions.
Bowel: Colace and Senna, PRN bisacodyl. Miralax prn
Nausea: Zofran
Bladder: Time void, PVRs, PRN straight cath. [place] cath removed and awaiting void
Pain/acute compression fractures: Lidocaine patch, oxycodone 5mg, 10g q 4 hours prn, Flexeril 5mg q 8 hours prn
GI Prophylaxis: Pantoprazole 40mg qd
DVT Prophylaxis: Mechanical and lovenox
Pulmonary: Incentive spirometry
Safety: Continue to reinforce assistance with all transfers.
Code Status:� Full code
Dispo (date/plan/equipment needs): Home with family care.� Social history reviewed.
Functional and Medical Goals: Modified Independent with ADL�s, ambulation, transfers
Discharge Destination: SNF
Summary of recommendations:Patient would benefit from SNF for continued PT/OT
Debility/CAD: coronary angiography on 11/25/2023 with intervention on a diagonal branch. continue care per cardiology. Continue therapy for endurance and rehabilitation
Hyponatremia�acute on chronic, likely exacerbated by CHF-Per nephrology�may have underlying SIADH with SSRI use, recent back pain.(U osmo 340, U na relatively low 33).LVEDP was high at 44 suspect hyponatremia related to hypervolemia in setting of
decompensated congestive heart failure
maintain FR 40 ounces/day
Chronic sternal wound infection: chronic diflucan and cefdinir. Currently on micafungin due to elevated LFTs
HTN: Losartan 25mg qd
DM: Insulin Pump. not catie
Bowel: Colace and Senna, PRN bisacodyl.
Bladder: Time void, PVRs, PRN straight cath.
GI Prophylaxis: Pantoprazole 40mg qd
DVT Prophylaxis: Mechanical and lovenox
Pulmonary: Incentive spirometry
Safety: Continue to reinforce assistance with all transfers.
Thank you for allowing me to care for your patient. Please contact me with any questions or concerns.
This note was dictated using a voice recognition system. Please excuse any typographical errors from change control analyst. If you believe there are any discrepancies, please notify our office.

Documented by User: Colton Garza MD 11/29/23 17:17
Consultation - Medical
-
Referring Provider: Dr. Tabor
Chief Complaint: chest pain, ACS, debility
History of Present Illness: This is a 68-year-old woman with complicated PMH of ( Chronic back pain with fractures, HFrEF : EF 25-30% by ventriculography and by echocardiogram, CKD 3, history of lung sarcoidosis, type 1 diabetes, HLD, HTN,
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
with back and chest pain as well as dyspnea.
On arrival to ER, she was noted to have elevated troponin of 1.26. She was started on IV heparin and given SL nitro, but continued to have chest pain and arm pain, so she was started on IV nitro. She reports since starting IV nitro, her chest
pain has resolved, but she continues to have L arm pain. She also had elevated troponin of 2540 and chest xray showed pulmonary edema. Cardiology consulted for evaluation given chest pain with significant coronary disease history.
Ruled in for NSTEMI with peak trop 27.5, she underwent invasive coronary angiography on 11/25/2023 with intervention on a diagonal branch. LV systolic function was found to be severely reduced by echo (EF 25-30%). 11/25 - had episode of chest
discomfort, flushing, and nausea improved s/p episode of vomiting. She developed profound bradycardia after initiating beta-ingrid and required dopamine infusion and intubation for airway protection. Reportedly had similar intolerance to
beta-ingrid in the past per her primary dietitian teacher, will not resume here. Wean dopamine as heart rate and blood pressure allow. Continue aspirin/Plavix and high intensity statin for medical management of CAD with ranolazine as antianginal
Echo 03/09/2020: EF 60 to 65%, mild AI, trace TR,
Echo 11/25/2023: EF 25 to 30%, LAD regional wall motion abnormality, LV most vigorous at base, mid to distal inferior, inferolateral hypokinesis, mid to distal lateral wall hypokinesis, mid to distal anterior wall hypokinesis, stage II diastolic
dysfunction, mild to moderate MR, aortic sclerosis, mild AR, moderate to severe TR, PAP 53 to 58 mmHg
Hospital course also notable for elevated AST 492 to 383, ALT 472 - 452, Alk phos 128-149, BNP >27,000. With significant back pain, MRI was completed lumbar spine with L2 compression fracture with deformity and height loss. There is T12 very mild
compression and mild edema. There is retropulsion vs. disc-osteophyte complex at L2-3 with mild to moderate central stenosis. Patient states she had the L2 compression fracture seen on xray in september, and had been using a lumbar back brace at home
prior to admission.
Patient was seen by me this afternoon in the room. Notably she had another episode of acute chest pain/angina and LUE pain/radiation earlier today. But states she feeling better now, and no current chest discomfort. No current SOB, dizziness or
lightheadedness. No GI complaints.
Past Medical History: Chronic back pain with fractures, HFrEF : EF 25-30% by ventriculography and by echocardiogram, CKD 3, history of lung sarcoidosis, type 1 diabetes, HLD, HTN, hypothyroidism, chronic sternal osteomyelitis on chronic
cefdinir/fluconazole, history of radial artery thrombosis
Procedure History: 12 coronary stents, s/p CABG x 2 (GOYAL to LAD, SVG to RPDA) 03/11/2020, s/p PCI of D1 07/29/2023 and stenting at distal edge of prior stent with a 2.25 x 12 mm [place] stent
Family History: non contributory
Social History:
Functional Level Premorbidly: Independent with all activities
Functional Level Currently: Bed mobility -supervision, ambulating 25 feet x1 + 20 feet x 1 with rolling walker at min assist, ADLs-min assist Min -mod assist for functional transfers. Therapy on hold due to chest pain pending evaluation by cardio
Tobacco: former, over 60 years ago
Alcohol: Denies
Drug use: Denies
Lives with: spouse
24-hour assistance available:
Number of floors: 2
# steps to enter:2
# steps to second floor: FF
Potential First floor set up:
Driving: ?
Occupation: retired
�
Allergies:
Allergy/AdvReac Type Severity Reaction Status Date / Time
amlodipine Allergy Unknown Verified 11/25/23 22:25
cannabidiol (CBD) extract Allergy Unknown Verified 11/25/23 22:25
ciprofloxacin Allergy Nausea / Verified 11/25/23 04:26
Vomiting
evolocumab Allergy hair loss Verified 11/25/23 22:25
[From Repatha Pushtronex]
metoprolol Allergy HEART BLOCK Verified 11/27/23 23:46
rosuvastatin [From Crestor] Allergy cramping Verified 11/25/23 22:25
in legs
sulfamethoxazole Allergy Nausea / Verified 11/25/23 04:26
[From Bactrim] Vomiting
tramadol Allergy Nausea / Verified 11/25/23 04:26
Vomiting
trimethoprim [From Bactrim] Allergy Nausea / Verified 11/25/23 04:26
Vomiting
Review of Systems:
Constitutional: (x) Normal _
Eye: (x) Normal _
Ear/Nose/Throat: (x) Normal _
Respiratory: (x) Normal _
Cardiovascular: (x) chest pain, cabg
Gastrointestinal: (x) Normal _
Genitourinary: (x) Normal _
Musculoskeletal: (x) Normal _
Integumentary: (x) Normal _
Neurologic: (x) normal
Psychiatric: (x) Normal _
Endocrine: (x) Normal _
Hematologic/Lymphatic: (x) Normal _
Allergic/Immunologic: (x) Normal _
Medications:
Active Current Visit Medication List
Category Date Time Status
Acetaminophen [Tylenol] Med 11/25/23 09:23 Hold
650 mg PO Q4HPRN PRN
Aspirin Low Dose EC [Aspir Low (Enteric Coated)] Med 11/26/23 08:00 Active
81 mg PO DAILY
Bisacodyl [Dulcolax] Med 11/28/23 15:42 Active
10 mg RECTAL DAILYPRN PRN
Cefdinir [Omnicef] Med 11/25/23 09:23 Active
300 mg PO BID
Clopidogrel Bisulfate [Plavix] Med 11/26/23 08:00 Active
75 mg PO DAILY
Cyclobenzaprine HCl [Flexeril] Med 11/26/23 10:14 Active
5 mg PO Q8HPRN PRN
Dextrose 50%-Water [Dextrose 50% Syringe] Med 11/26/23 22:17 Active
12.5 grams IV [id number] PRN
Enoxaparin Sodium [Lovenox] Med 11/26/23 18:00 Active
40 mg SC QPM
Escitalopram Oxalate [Lexapro] Med 11/27/23 08:00 Active
5 mg PO DAILY
Fluconazole [Diflucan] Med 11/25/23 09:23 Hold
200 mg PO DAILY
Flush (0.9% Sodium Chloride) [Flush (Nss)] Med 11/25/23 10:00 Active
See Dose Instructions IV PER PROTOCOL
Furosemide [Lasix] Med 11/28/23 16:00 Active
40 mg IV BID AT 0800,1600
Glucagon [GlucaGen] Med 11/26/23 22:17 Active
1 mg IM PRN PRN
Levothyroxine [Synthroid] Med 11/25/23 09:23 Active
112 mcg PO DAILY@0600
Lidocaine [Lidocaine 4% Patch] Med 11/28/23 10:45 Active
2 patch TOPICAL DAILY
Losartan [Cozaar] Med 11/26/23 08:00 Hold
25 mg PO DAILY
Micafungin Sodium [Mycamine] 100 mg Med 11/27/23 14:00 Active
Dextrose 5%/Water 100 ml [D5w] 100 ml
IV Q24H
Nitroglycerin Sublingual [Nitrostat (Sublingual)] Med 11/25/23 05:17 Active
0.4 mg SL [id number] PRN
Ondansetron HCl [Zofran] Med 11/25/23 08:00 Active
4 mg PO Q8HPRN PRN
Oxycodone [Roxicodone] Med 11/28/23 15:39 Active
10 mg PO Q4HPRN PRN
Oxycodone [Roxicodone] Med 11/28/23 15:38 Active
5 mg PO Q4HPRN PRN
Pantoprazole [Protonix] Med 11/25/23 09:23 Active
40 mg PO DAILY
Polyethylene Glycol Powder [Miralax] Med 11/28/23 16:00 Active
17 grams PO DAILY
Pravastatin Sodium [Pravachol] Med 11/25/23 09:23 Hold
10 mg PO DAILY
Pt's Own Ins. Pump Aspart [PT'S OWN INSULIN PUMP - Med 11/28/23 12:45 Active
NovoLOG]
See Dose Instructions SC ACHS
Pt's Own Ins. Pump Aspart [PT'S OWN INSULIN PUMP - Med 11/28/23 10:56 Active
NovoLOG]
See Dose Instructions SC PRN PRN
Ranolazine Extended Release [Ranexa Extended Release] Med 11/25/23 09:23 Active
500 mg PO BID
Remove Patch [Remove Lidocaine Patch] Med 11/27/23 20:00 Active
See Dose Instructions REMOVE DAILY@1999
Sennosides [Senokot] Med 11/28/23 20:00 Active
8.6 mg PO BID
Vitals:
Temp Pulse Resp BP Pulse Ox
98.0 F 79 18 132/78 93
11/29/23 15:00 11/29/23 15:00 11/29/23 15:00 11/29/23 15:00 11/29/23 15:00
Height 5 ft 6 in
Actual Weight 68.719 kg
Body Mass Index (BMI) 24.5
Lab Results
Labs
WBC 8.3 10^3/uL (4.8-10.8) 11/28/23 05:14
RBC 4.27 10^6/uL (4.20-5.40) 11/28/23 05:14
Hgb 11.9 g/dL (12.0-16.0) L 11/28/23 05:14
Hct 34.2 % (37.0-47.0) L 11/28/23 05:14
MCV 80.1 fL (81.0-99.0) L 11/28/23 05:14
MCH 27.9 pg (27.0-31.0) 11/28/23 05:14
MCHC 34.8 g/dL (33.0-37.0) 11/28/23 05:14
RDW 15.2 % (11.5-14.5) H 11/28/23 05:14
Plt Count 152 10^3/uL (130-400) 11/28/23 05:14
MPV 11.9 fL (7.4-10.4) H 11/28/23 05:14
Abs Immat Gran (auto) 0.0 10^3/uL (0-0.05) 11/28/23 05:14
Absolute Neuts (auto) 5.5 10^3/uL (1.4-6.5) 11/28/23 05:14
Absolute Lymphs (auto) 1.7 10^3/uL (1.2-3.4) 11/28/23 05:14
Absolute Monos (auto) 1.0 10^3/uL (0.1-0.6) H 11/28/23 05:14
Absolute Eos (auto) 0.1 10^3/uL (0-0.7) 11/28/23 05:14
Absolute Basos (auto) 0.1 10^3/uL (0-0.2) 11/28/23 05:14
Immature Gran % 0.2 % (0-0.5) 11/28/23 05:14
Neutrophils % 66.2 % (42.2-75.2) 11/28/23 05:14
Lymphocytes % 19.9 % (20.5-51.1) L 11/28/23 05:14
Monocytes % 12.2 % (1.7-9.3) H 11/28/23 05:14
Eosinophils % 0.7 % (0-6) 11/28/23 05:14
Basophils % 0.8 % (0-2) 11/28/23 05:14
Nucleated RBC % 0 % 11/28/23 05:14
PT 17.0 Sec (11.4-14.6) H 11/26/23 21:50
PT Cancelled 11/26/23 21:50
INR 1.40 11/26/23 21:50
INR Cancelled 11/26/23 21:50
APTT 32.9 Sec (23.4-35.0) 11/26/23 21:50
pH 7.48 (7.35-7.45) H 11/27/23 04:03
pCO2 35 mmHg (32-35) 11/27/23 04:03
pO2 132 mmHg (83-108) H 11/27/23 04:03
HCO3 26.1 mmol/L (21-28) 11/27/23 04:03
Base Excess 2.8 mmol/L 11/27/23 04:03
ABG O2 Sat (Measured) 99.9 % (94-98) H 11/27/23 04:03
Potassium 4.7 mMOL/L (3.5-5.1) 11/26/23 23:05
O2 Delivery Level 11/27/23 04:03
Sodium 128 mmol/L (135-145) L 11/28/23 05:14
Potassium 4.1 mmol/L (3.5-5.1) 11/28/23 05:14
Chloride 95 mmol/L (98-107) L 11/28/23 05:14
Carbon Dioxide 30 mmol/L (22-30) 11/28/23 05:14
BUN 40 mg/dl (7-17) H 11/28/23 05:14
Creatinine 1.1 mg/dL (0.6-1.0) H 11/28/23 05:14
Estimated Creat Clear 45 ml/min 11/28/23 05:14
eGFR 54.06 11/28/23 05:14
Glucose 345 mg/dl (70-99) H 11/28/23 16:42
Hemoglobin A1c 7.0 % (4.0-5.6) H 11/25/23 04:38
Lactic Acid 1.3 mmol/L (0.7-2.0) 11/27/23 04:00
Calcium 8.7 mg/dl (8.4-10.2) 11/28/23 05:14
Ionized Calcium 1.14 mMOL/L (1.15-1.33) L 11/26/23 23:05
Phosphorus 5.2 mg/dl (2.5-4.5) H 11/26/23 03:52
Magnesium 2.1 mg/dl (1.6-2.3) 11/27/23 03:59
Total Bilirubin 0.6 mg/dl (0.2-1.3) 11/28/23 05:14
Direct Bilirubin 0.1 mg/dl (0.0-0.4) 11/28/23 05:14
AST 492 U/L (14-36) H 11/28/23 05:14
ALT 472 U/L (0-35) H 11/28/23 05:14
Alkaline Phosphatase 128 U/L (38-126) H 11/28/23 05:14
Ammonia < 9 umol/L (9-30) L 11/26/23 15:47
Creatine Kinase 904 U/L (30-135) H 11/25/23 12:19
Troponin I 11.200 ng/ml H* D 11/27/23 03:59
C-Reactive Protein 44.00 mg/L (0.0-10.00) H 11/26/23 15:40
Vra-X-Pfhdpktbfue Pept > 69455 pg/ml 11/26/23 15:47
Total Protein 5.5 g/dl (6.3-8.2) L 11/28/23 05:14
Albumin 3.2 g/dl (3.5-5.0) L 11/28/23 05:14
Triglycerides 77 mg/dl (10-149) 11/26/23 21:50
Total Cholesterol 163 mg/dl (50-199) 11/26/23 03:52
LDL Cholesterol, Calc 47 mg/dl 11/26/23 03:52
VLDL Cholesterol, Calc 17 mg/dl (0-30) 11/26/23 03:52
HDL Cholesterol 99 mg/dl 11/26/23 03:52
Procalcitonin 0.09 ng/ml (0.0-0.25) 11/26/23 15:47
TSH (Reflex) 0.80 uIU/ml (0.47-4.68) 11/25/23 04:38
Random Cortisol 36.9 ug/dl 11/25/23 04:38
Urine Osmolality 340 mOsm/kg (300-900) 11/25/23 21:42
Urine Osmolality Cancelled 11/25/23 21:42
Urine Creatinine 43.400 mg/dl 11/25/23 21:42
Urine Sodium 33 mmol/L (30-90) 11/25/23 21:42
Urine Sodium Cancelled 11/25/23 21:42
Hepatitis A IgM Ab Negative (Negative) 11/27/23 03:59
Hep Bs Antigen Negative (Negative) 11/27/23 03:59
Hep Bs Antibody Negative 11/27/23 03:59
Hep B Core IgM Ab Negative (Negative) 11/27/23 03:59
Hepatitis C Antibody Negative (Negative) 11/25/23 12:19
POC Glucose 144 mg/dl (70-99) H 11/29/23 05:54
POC ACT Low Range > 397 Seconds (116-155) H 11/25/23 14:46
Physical Exam:
General Appearance/Observation: Well-developed, well-nourished individual in no apparent distress. Lying comfortably in bed
Pain/Comfort Assessment: Denies presently.
Mood/Affect: Appropriate
Eyes: Conjunctiva/Lids: normal Pupils: pupils equal round and reactive to light and Accommodation
Ears/Nose/Throat: oral mucosa moist, throat clear. Lips/Teeth/Gums: normal
Neck: No muscle spasm or tenderness
Cardiovascular: Heart: regular, no murmur
Pulses: dorsalis pedis 2+ bilaterally
Respiratory: Respiratory Effort/Chest Expansion: normal Auscultation: Clear to auscultation bilaterally
Gastrointestinal: abdomen not tender, no distension, normal abdominal bowel sounds
Extremities: Edema: None Cyanosis: None Trophic changes: None
Neurology Exam:
Orientation: Alert, Oriented to self, Time, Place
Memory: Intact immediately and at 3 minutes
Higher cortical function
Speech: Intact
Repetition: Intact
Comprehension: Intact
Two step command: Intact
Naming: Intact
Cranial Nerves:
CNII: Pupillary light reflex: Intact Visual Field: Intact
CN III, IV, : Extraocular muscles: Intact
CN V: Facial Sensation at Forehead: Intact , Maxilla: Intact, Mandible: Intact
CN VII: Facial movement: Symmetric
CN VIII: Hearing: Normal
CN IX/X: Speech & swallow: Normal, Position of Uvula: Midline
CN XI: Shoulder shrug: Symmetric
CN XII: Tongue protrusion: Midline
Sensory:
Light touch: Intact in bilateral upper and lower extremities
Pinprick:
Proprioception:
Temperature:
Reflexes:
Biceps: 2+ bilaterally
Brachioradialis: 2+ bilaterally
Triceps: 2+ bilaterally
Patellar: 2+ bilaterally
Achilles: 2+ bilaterally
Babinski: Downgoing bilaterally
Clonus: None
Tonya: Negative bilaterally
Cerebellar: Dysmetria/Ataxia: None
Musculoskeletal:
Motor: (Manual muscle scale 0-5)
Muscle SA EF WE EE FF FA HF KE DF EHL PF
Right 5 5 5 5 5 5 5 5 5 5 5
Left 5 5 5 5 5 5 5 5 5 5 5
Tone: Normal in all extremities
Range of Motion: Passively within normal limits in all extremities
Diagnostic Results: as per HPI
Assessment 68-year-old woman with complicated PMH of ( Chronic back pain with fractures, HFrEF : EF 25-30% by ventriculography and by echocardiogram, CKD 3, history of lung sarcoidosis, type 1 diabetes, HLD, HTN, hypothyroidism, chronic sternal
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
Plan
PT/OT to increase independence with ADLs, improve balance, coordination, endurance, strength, mobility, community reintegration, decreased burden of care on others and family education.
CAD: coronary angiography on 11/25/2023 with intervention on a diagonal branch. continue care per cardio
Chronic sternal wound infection: chronic diflucan and cefdinir. Currently on micafungin due to elevated LFTs - from possible fluconazole vs. hepatitis?
HTN: Losartan 25mg qd
DM: Insulin Pump. not candidate for SGLT2 inhibitor given type 1 diabetic and associated risk for euglycemic DKA
HLD: Pravastatin 10mg qd- on hold given elevated LFTs. Reported intolerance to higher doses of statin and inability to tolerate Repatha. For abdominal US today
Inceased LFTs: Possibly due to fluconazole, but had moderate periportal edema throughout the liver suspicious for hepatitis per radiologist report.
Anemia: Likely multifactorial.� Continue to monitor.
Hyponatremia�acute on chronic, likely exacerbated by CHF-Per nephrology�may have underlying SIADH with SSRI use, recent back pain.(U osmo 340, U Na relatively low 33).LVEDP was high at 44 suspect hyponatremia related to hypervolemia in setting of
decompensated congestive heart failure
-maintain FR 40 ounces/day
Psych: consult psych, lexapro 5mg qd.
Skin: monitor for pressure sores/rashes/lesions.
Bowel: Colace and Senna, PRN bisacodyl. Miralax prn
Nausea: Zofran
Bladder: Time void, PVRs, PRN straight cath. Browning cath removed and awaiting void
Pain/acute compression fractures: Lidocaine patch, oxycodone 5mg, 10g q 4 hours prn, Flexeril 5mg q 8 hours prn
GI Prophylaxis: Pantoprazole 40mg qd
DVT Prophylaxis: Mechanical and lovenox
Pulmonary: Incentive spirometry
Safety: Continue to reinforce assistance with all transfers.
Code Status:� Full code
Dispo (date/plan/equipment needs): Home with family care.� Social history reviewed.
Functional and Medical Goals: Modified Independent with ADL�s, ambulation, transfers
Discharge Destination: SNF vs. home
Summary of recommendations: Patient would benefit from SNF for continued PT/OT but may be able to go home if progresses well enough with therapy during inpatient stay. Eventual need for outpatient cardiac rehab. No need for acute level
rehabilitation at this time.
Debility/CAD: coronary angiography on 11/25/2023 with intervention on a diagonal branch. continue care per cardiology. Continue therapy for endurance and rehabilitation
Hyponatremia�acute on chronic, likely exacerbated by CHF-Per nephrology�may have underlying SIADH with SSRI use, recent back pain.(U osmo 340, U Na relatively low 33).LVEDP was high at 44 suspect hyponatremia related to hypervolemia in setting of
decompensated congestive heart failure
maintain FR 40 ounces/day
Elevated LFT's: ?due to fluconazole, possible hepatitis per radiology suggestion with periportal edema on imaging.
Chronic sternal wound infection: had been on chronic diflucan and cefdinir. Currently on micafungin due to elevated LFTs
HTN: Losartan 25mg qd
DM: Insulin Pump. not catie
Bowel: Colace and Senna, PRN bisacodyl.
Bladder: Time void, PVRs, PRN straight cath.
GI Prophylaxis: Pantoprazole 40mg qd
DVT Prophylaxis: Mechanical and lovenox
Pulmonary: Incentive spirometry
Safety: Continue to reinforce assistance with all transfers.
Thank you for allowing me to care for your patient. Please contact me with any questions or concerns.
Attending note:
Patient seen and examined by me this afternoon. Discussed with Collette Batres PA-C, and see above note, examination and plan. I participated in the medical decision making on this patient.
This note was dictated using a voice recognition system. Please excuse any typographical errors from change control analyst. If you believe there are any discrepancies, please notify our office.
--- NOTE | 2023-11-29 08:35 | W.PN.HOSP.TC ---
Addendum entered and electronically signed by Osmin Reyes MD 11/29/23 13:35:
Traumatic compression fractures
KIM
Unresponsive due to complete heart block-no cardiopulmonary arrest
Intubation due to airway compromise-no acute hypoxic respiratory failure
Original Note:
Today's Communication/Plan
-
IV Lasix. Monitor renal function and LFTs. PT OT and rehab consult.
Assessment / Plan
Assessment / Plan
Physical exam:
General: Acutely ill
HEENT: Normocephalic, Atraumatic and Moist Mucous Membranes
Respiratory: Coarse crackles in the bases; Negative Wheezes or Rhonchi
Cardiac: Sternal scar, Regular Rhythm and S1/S2, no murmurs rubs or gallops
GI: Soft, Nontender and Nondistended
Musculoskeletal: Decreased range of motion in the back. Tenderness in the back. No Clubbing, No Cyanosis. Bilateral edema present lower extremities
Neuro: Alert oriented x 3, no gross neurological deficits.
Psych: Calm, normal judgment and insight.
A/P:
NSTEMI:
Status postcardiac cath on 11/24
Successful stenting of diagonal branch
Continue dual antiplatelet therapy aspirin and Plavix
Started on metoprolol XL but discontinued after cardiac event.
On statins
On Ranexa
Continue cardiac monitoring
Cardiology consult and follow-up appreciated
PT OT eval
Rehab consulted yesterday
Discussed with at bedside today
Discussed with high risk case manager
Cardiorespiratory arrest:
ROSC
Bradycardia trigger event by [id number] beta-blockers at all
No need for pacemaker per cardiology
Status post intubated last evening
Started on dopamine--> off pressors
Cardiology on board
Acute hypoxic respiratory failure:
Off mechanical ventilation
Hypotension:
Resolved
Probably medications related
Acute systolic congestive heart failure:
IV diuretics, Lasix 40 mg twice a day
Renal function and electrolyte today pending
BNP upon admission more than 27,000
Monitor strict I/O
Monitor daily weight
Monitor renal function and electrolytes
Reviewed latest echocardiogram on our system
Continue guideline-directed medical therapy for heart failure (GDMT)
Fluid restriction
Salt restriction
Heart failure education
Follow up clinical response
Severe hyponatremia:
Monitoring sodium closely
Nephrology following
Sodium up to 128 today (from as low as 120)
Chronic sternal osteomyelitis:
On oral cefdinir--> ID consulted
ID change fluconazole to IV micafungin for now
Repeat culture during this hospitalization no growth
Elevated LFTs:
Monitor trend
Ultrasound right upper quadrant pending
Hepatitis screen negative
Holding fluconazole and statin
Acute on chronic back pain due to T12 and L2 acute fracture:
Continue pain meds
Reviewed MRI of the back
No evidence of infection
Might need to contemplate candidacy for kyphoplasty but needs to see how she does with pain meds and therapy.
Diabetes mellitus type 1:
Continue diabetic diet
Continue insulin pump but monitor sugars closely
Hypothyroidism:
Continue thyroid replacement
DVT prophylaxis:
SCDs
Lovenox
CODE STATUS:
Full code
Total time spent on today's encounter was 52 minutes which included time spent in counseling the patient/family regarding diagnosis and treatment plan as listed above, goals of care, and symptom management. Case was discussed with nursing staff,
specialists, and care coordinators/case management. All labs and imaging personally reviewed by me. Remainder the time spent in detailed review of previous records, lab data, imaging, and other medical provider documentation.
Anticipated Discharge: > 48 hours
Subjective/Interval History
-
Date of Service: November 29, 2023
Patient denies any worsening shortness of breath. Back pain more tolerable with current pain medications. No chest pain. Afebrile
Objective Data
-
Labs:
Laboratory Results
11/29/23
06:00
Sodium Pending
Potassium Pending
Chloride Pending
Carbon Dioxide Pending
BUN Pending
Creatinine Pending
Glucose Pending
Calcium Pending
Total Bilirubin Pending
AST Pending
ALT Pending
Alkaline Phosphatase Pending
Vital Signs:
Vital Signs
Temp Pulse Resp BP Pulse Ox
97.8 F 58 16 121/63 96
11/29/23 03:22 11/29/23 03:22 11/29/23 03:22 11/29/23 03:22 11/29/23 03:22
I&O
11/28/23 11/29/23 11/30/23
06:59 06:59 06:59
Intake Total 1344.7 / 1404.7 1260 / 1260
Output Total 2064 / 2114 50 / 50
Balance -720.3 / -710.3 1210 / 1210
[2023-11-29] MEDS: ROXICODONE 10 MG PO ×3 (09:28→21:02)
[2023-11-29] MEDS: MIRALAX 17 GRAMS PO (09:35)
[2023-11-29] MEDS: ASPIR LOW (ENTERIC COATED) 81 MG PO (09:36)
[2023-11-29] MEDS: RANEXA EXTENDED RELEASE 500 MG PO ×2 (09:36→21:07)
[2023-11-29] MEDS: SENOKOT 8.6 MG PO ×2 (09:36→21:02)
[2023-11-29] MEDS: LIDOCAINE 4% PATCH 2 PATCH TOPICAL (09:36)
[2023-11-29] MEDS: PROTONIX 40 MG PO (09:36)
[2023-11-29] MEDS: LASIX 40 MG IV (09:37)
[2023-11-29] MEDS: OMNICEF 300 MG PO ×2 (09:37→21:02)
[2023-11-29] MEDS: PT'S OWN INSULIN PUMP - NovoLOG 4 UNIT SC (09:37)
[2023-11-29] MEDS: PLAVIX 75 MG PO (09:37)
[2023-11-29] MEDS: LEXAPRO 5 MG PO (09:37)
[2023-11-29 10:03] LABS: Glucose - Point of Care 229 mg/dl (70-99)
--- NOTE | 2023-11-29 10:13 | PN.CDI ---
CDI
- -
CDI:
Physician Documentation Request
Admit Date: 11/25/23 06:24
Dear Doctor Amy,
11/25 patient was intubated.
Hospitalist progress notes state 'acute hypoxic respiratory failure'
Cardiology and catering assistant progress notes state patient was intubated for airway protection
In an attempt to clarify potential conflicting documentation, please clarify the reason for intubation
Airway protection
Acute hypoxic respiratory failure
Other
Use of terms such as suspected, likely, concern for, or probable (associated with a specific diagnosis that is being evaluated, monitored, or treated as if it exists) are acceptable and can be coded in the inpatient setting, when documented at the
time of discharge.
Thank you,
Bere Escobar RN, BSN
CDI Specialist
tiger text
Please use your independent medical judgment in providing your response.
--- NOTE | 2023-11-29 10:18 | PN.CDI ---
CDI
- -
CDI:
Physician Documentation Request
Admit Date: 11/25/23 06:24
Dear Doctor Amy,
Patient admitted with NSTEMI. On 11/25 patient became unresponsive and a code 9 was called. Patient was intubated.
cardiology note state '11/25 PM she developed symptomatic bradycardia with evidence of complete heart block. She never lost pulse or pressure but did become unresponsive'
Hospitalist progress note state 'cardiorespiratory arrest'
In an attempt to clarify potentially conflicting documentation, please clarify the diagnosis associated with the patient becoming unresponsive.
Cardiopulmonary arrest
Complete heart block
Other
Use of terms such as suspected, likely, concern for, or probable (associated with a specific diagnosis that is being evaluated, monitored, or treated as if it exists) are acceptable and can be coded in the inpatient setting, when documented at the
time of discharge.
Thank you,
Bere Escobar RN BSN
CDI Specialist
tiger text
Please use your independent medical judgment in providing your response.
--- NOTE | 2023-11-29 10:32 | PN.CDI ---
CDI
- -
CDI:
Physician Documentation Request
Admit Date: 11/25/23 06:24
Dear Doctor Amy,
Patient admitted with NSTEMI,
Creatinine resulted as follows.
Laboratory Tests
11/25/23 11/26/23 11/26/23
12:19 09:24 15:47
Creatinine 0.7 1.1 H 1.5 H
11/27/23 11/28/23
01:11 05:14
Creatinine 1.2 H 1.1 H
Criteria for KIM*
1 Increase in serum creatinine by > or = to 0.3 mg/dL (> or = to 26.5 micromol/L) within 48 hours, OR
2 Increase in serum creatinine to > or = to 1.5 times baseline, which is known or presumed to have occurred within 7 days, OR
3 Urine volume < 0.5 nL/kg/hour for six hours
Could you please provide a diagnosis that supports the above lab abnormalities and additional evaluation/monitoring:
KIM
Abnormal lab values clinically insignificant
Other
Use of terms such as suspected, likely, concern for, or probable (associated with a specific diagnosis that is being evaluated, monitored, or treated as if it exists) are acceptable and can be coded in the inpatient setting, when documented at the
time of discharge.
Thank you,
Bere Escobar RN, BSN
CDI Specialist
tiger text
Please use your independent medical judgment in providing your response.
--- NOTE | 2023-11-29 10:37 | PN.CDI ---
CDI
- -
CDI:
Physician Documentation Request
Admit Date: 11/25/23 06:24
Dear Doctor Amy,
Patient was complaining of back pain.
MRI revealed T12 and L2 acute fracture
Please provide further specificity regarding the diagnosis of fracture:
Etiology
Traumatic
Pathologic due to osteoporosis
Pathologic due to other disease (please specify)
Due to a combination of trauma and a pathological process
but the trauma alone would not likely have been sufficient
to cause the fracture
Use of terms such as suspected, likely, concern for, or probable (associated with a specific diagnosis that is being evaluated, monitored, or treated as if it exists) are acceptable and can be coded in the inpatient setting, when documented at the
time of discharge.
Thank you,
Bere Escobar RN, BSN
CDI Specialist
tiger text
Please use your independent medical judgment in providing your response.
[2023-11-29 12:04] LABS: Glucose - Point of Care 157 mg/dl (70-99)
[2023-11-29] MEDS: NITROSTAT (SUBLINGUAL) 0.4 MG SL (12:47)
--- NOTE | 2023-11-29 12:52 | PTCARENOTE ---
Patient had a change in condition at about 1215 pm. she complain of chest and left arm pain at a 10, BP 140/78, HR: 79, T:98.4, R:18, PO2:99 or room air. EKG done and result sent to cardiology. Cardiology and attending came up to see her. He
administered a dose of 0.3mg nitro before I could get to her. Second dose of nitro administered at about 1255. Patient is currently in bed. Will continue to monitor.
--- NOTE | 2023-11-29 13:00 | W.PN.UPDATE ---
Update Note
Progress Note Update
I was asked to evaluate patient by RN. Patient complains of chest pain severe intensity radiated to left arm. She took 1 nitro without significant relief although she typically takes about 3 times to have an effect. Order chest x-ray, stat
twelve-lead EKG, cardiac enzymes, BNP, repeat labs. Continue nitro, and might use morphine or Nitropaste. Cardiology evaluated the patient when I was exiting the room. Discussed with cardiology and will follow-up their lead.
--- NOTE | 2023-11-29 13:00 | W.PN.ID1 ---
Date of Service
Date of Service: November 29, 2023
Today's Communication
Follow LFT's
Assessment / Plan
# Chronic sternal osteomyelitis
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
- Follows with Dr. Oh
# Acute elevated AST and ALT
- stablilized
# NSTEMI s/p stent (11/25/23)
# Acute on chronic HF
# s/p syncope due to severe bradycardia (11/26/23)
DM1
CADs/p CABG x 2 (03/11/2020), multiple stents
HFrEF
HTN
hypothyroidism
CKD3
Lung sarcoidosis
RECOMMENDATIONS:
Unlikely Fluconazole-induced liver injury. Pt has been on fluconazole since 2020.
RUQ US: Cholelithiasis without sonographic evidence of acute cholecystitis.
Holding fluconazole for now.
Follow today's pending labs
Continue micafungin 100mg IV q24 (d3) as bridge until LFT's improve, then resume fluconazole with close follow-up of LFT's
Continue cefdinir suppressive tx.
Follow-up with Dr. Oh
Chief Complaint
-: Other (chronic sternal osteo)
Subjective / Review of Systems
No complaints.
Vital Signs / Physical Exam
Vital Signs
Vital Signs
Temp Pulse Resp BP Pulse Ox
97.7 F 72 18 138/74 99
11/29/23 12:15 11/29/23 12:15 11/29/23 12:15 11/29/23 12:47 11/29/23 12:15
Physical Exam
Constitutional: No Acute Distress
Gastrointestinal: Soft, Non Tender and Non Distended
Wound: Other (sternum no erythema/wounds)
Objective Data
Lab Data
PT 17.0 Sec (11.4-14.6) H 11/26/23 21:50
PT Cancelled 11/26/23 21:50
INR 1.40 11/26/23 21:50
INR Cancelled 11/26/23 21:50
APTT 32.9 Sec (23.4-35.0) 11/26/23 21:50
Estimated Creat Clear Cancelled 11/29/23 09:02
Lactic Acid 1.3 mmol/L (0.7-2.0) 11/27/23 04:00
Total Bilirubin Cancelled 11/29/23 09:02
AST Cancelled 11/29/23 09:02
ALT Cancelled 11/29/23 09:02
Alkaline Phosphatase Cancelled 11/29/23 09:02
C-Reactive Protein 44.00 mg/L (0.0-10.00) H 11/26/23 15:40
Most recent labs reviewed.
Micro Results:
11/26/23 20:15 Blood Culture - Preliminary
Blood/Venous No Growth in 48 hours- Final report to follow
11/25/23 CXR: MODERATE ACUTE INTERSTITIAL CARDIOGENIC PULMONARY EDEMA.
11/26/23 MRI lumbar: No MRI evidence for acute infectious discitis or epidural abscess in the lumbar spine. 2. ACUTE INFERIOR ENDPLATE FRACTURE of L2 with mild to moderate loss of vertebral body height and retropulsion of the posterior inferior
endplate into the anterior epidural space causing mild central canal stenosis and moderate bilateral neural foraminal narrowing. 3. ACUTE SUPERIOR ENDPLATE FRACTURE of T12 with mild loss of vertebral body height.
[2023-11-29 13:19] LABS: % Basophils 0.8 % (0-2); % Eosinophils 0.7 % (0-6); % Immature Granulocytes 0.5 % (0-0.5); % Lymphocytes 19.7 % (20.5-51.1); % Monocytes 12.3 % (1.7-9.3); Absolute Basophils 0.1 10^3/uL (0-0.2); Absolute Eosinophils 0.1 10^3/uL (0-0.7); Absolute Lymphocytes 1.7 10^3/uL (1.2-3.4); Absolute Monocytes 1.1 10^3/uL (0.1-0.6); Absolute Neutrophils 5.7 10^3/uL (1.4-6.5); Hematocrit 40.5 % (37.0-47.0); Hemoglobin 14.2 g/dL (12.0-16.0); Mean Corp Hgb Conc. 35.1 g/dL (33.0-37.0); Mean Corpuscular Volume 79.9 fL (81.0-99.0); Mean Platelet Volume 10.7 fL (7.4-10.4); Nucleated Red Blood Cells % 0 %; Platelet Count 181 10^3/uL (130-400); Red Blood Cell Count 5.07 10^6/uL (4.20-5.40); Red Cell Dist. Width 15.2 % (11.5-14.5); White Blood Cell Count 8.6 10^3/uL (4.8-10.8)
[2023-11-29] MEDS: MORPHINE SULFATE 1 MG IV ×2 (13:23→22:24)
[2023-11-29] MEDS: MYCAMINE 105 MG IV (13:24)
[2023-11-29 13:34] LABS: Lactic Acid 4.5 mmol/L (0.7-2.0)
[2023-11-29 13:41] LABS: ALT (SGPT) 452 U/L (0-35); AST (SGOT) 383 U/L (14-36); Albumin 4.1 g/dl (3.5-5.0); Alkaline Phosphatase 149 U/L (38-126); Blood Urea Nitrogen 34 mg/dl (7-17); Calcium 9.5 mg/dl (8.4-10.2); Carbon Dioxide 26 mmol/L (22-30); Chloride 92 mmol/L (98-107); Direct Bilirubin 0.3 mg/dl (0.0-0.4); Estimated Creatinine Clearance 54 ml/min; Glucose 147 mg/dl (70-99); Potassium 3.9 mmol/L (3.5-5.1); Sodium 130 mmol/L (135-145); Total Bilirubin 0.7 mg/dl (0.2-1.3); Total Protein 6.6 g/dl (6.3-8.2); Triglycerides 101 mg/dl (10-149); eGFR > 60.00
[2023-11-29] MEDS: PT'S OWN INSULIN PUMP - NovoLOG SC ×3 (13:52→22:11)
--- NOTE | 2023-11-29 13:54 | W.PN.NEPH.PH ---
Today's Communication / Plan
-
cont diuresis
Assessment/Plan
-
IMP:
ACS s/p Stent D branch 11/24
ASCVD
Acute systolic and diastolic CHF 25-30%
mild to mod MR
mod to severe TR
Acute on chronic Hyponatremia-follows Dr Bliss out pt
DM-I
Benign Hypertension
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
Hypothyroidism
PLan:
A/w ACS known complex CAD s/p stent 11/24
hyponatremia-acute on chronic likely exaggerated by CHF
sodium improving to 130 with diuresis
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
U osmo 340, U na relatively low 33
would continue lasix IV but will increase to 40 mg IV twice daily
LVEDP was high at 44 suspect hyponatremia related to hypervolemia in setting of decompensated congestive heart failure
maintain FR 40 ounces/day
TSH and cortisol were ok
mild KIM-resolved
CP today, cards evaluating
d/w pt and nursing
-
-
Date of Service: November 29, 2023
CC / HPI / ROS
-
Chief Complaint:
hyponatremia
History of Present Illness:
sodium slightly better at 130
Hemodynamically labile
cr at 0.9
wt is decreasing
BP stable
Review of Systems:
c/o mid CP
no sob
mild edema
Labs
-
Labs:
WBC 8.6 10^3/uL (4.8-10.8) 11/29/23 12:52
RBC 5.07 10^6/uL (4.20-5.40) 11/29/23 12:52
Hgb 14.2 g/dL (12.0-16.0) 11/29/23 12:52
Hct 40.5 % (37.0-47.0) 11/29/23 12:52
Plt Count 181 10^3/uL (130-400) 11/29/23 12:52
Sodium 130 mmol/L (135-145) L 11/29/23 12:52
Sodium Cancelled 11/29/23 12:52
Potassium 3.9 mmol/L (3.5-5.1) 11/29/23 12:52
Potassium Cancelled 11/29/23 12:52
Chloride 92 mmol/L (98-107) L 11/29/23 12:52
Chloride Cancelled 11/29/23 12:52
Carbon Dioxide 26 mmol/L (22-30) 11/29/23 12:52
Carbon Dioxide Cancelled 11/29/23 12:52
BUN 34 mg/dl (7-17) H 11/29/23 12:52
BUN Cancelled 11/29/23 12:52
Creatinine 0.9 mg/dL (0.6-1.0) 11/29/23 12:52
Creatinine Cancelled 11/29/23 12:52
eGFR > 60.00 11/29/23 12:52
eGFR Cancelled 11/29/23 12:52
Glucose 147 mg/dl (70-99) H 11/29/23 12:52
Glucose Cancelled 11/29/23 12:52
Calcium 9.5 mg/dl (8.4-10.2) 11/29/23 12:52
Calcium Cancelled 11/29/23 12:52
Phosphorus 5.2 mg/dl (2.5-4.5) H 11/26/23 03:52
Albumin 4.1 g/dl (3.5-5.0) 11/29/23 12:52
Albumin Cancelled 11/29/23 12:52
Physical Exam
-
Vital Signs:
Vital Signs
Temp Pulse Resp BP Pulse Ox
98.0 F 82 18 159/89 99
11/29/23 13:51 11/29/23 13:49 11/29/23 13:51 11/29/23 13:49 11/29/23 13:51
Cardiovascular:: Regular rate and rhythm
Respiratory:: Bilateral: CTA (decreased)
Lung Excursion:: Normal
Abdomen:: Nontender and Soft
Extremity Edema:: +1: Bilateral: (trace)
Browning Catheter: No
[2023-11-29 13:57] LABS: NT-proBNP > 27000 pg/ml
[2023-11-29] MEDS: NITRO-BID 0.5 INCH TOPICAL ×2 (14:08→22:11)
--- NOTE | 2023-11-29 14:42 | W.PN.CARDCBS ---
Today's Communication / Plan
-
See above plan
Transferred to IVU
Impression / Plan
-
.
PCP: Dr. Caitie Laird
Editor Trade Journal: Dr. Mame Bardales ([facility])
Impression:
-Presented with chest pain
-Episode of severe bradycardia and complete heart block.
-VDRF, intubated during episode 11/25, extubated 11/26
-Elevated troponin, NSTEMI: Peak troponin 27.5 resulting in diag PCI 11/25/23
-Hyponatremia
-HFrEF : EF 25-30% by ventriculography and by echocardiogram
-Severe back discomfort with fractures
-CAD
h/o (now) 12 coronary stents
s/p CABG x 2 (GOYAL to LAD, SVG to RPDA) 03/11/2020
s/p PCI of D1 07/29/2023 and stenting at distal edge of prior stent with a 2.25 x 12 mm Donald stent
-HTN
-HLD
-Type I DM
-h/o lung sarcoidosis
-CKD 3
-h/o chronic sternal osteomyelitis
on chronic cefdinir/fluconazole
-h/o radial artery thrombosis
-Hypothyroidism
Echo 03/09/2020: EF 60 to 65%, mild AI, trace TR,
Echo 11/25/2023: EF 25 to 30%, LAD regional wall motion abnormality, LV most vigorous at base, mid to distal inferior, inferolateral hypokinesis, mid to distal lateral wall hypokinesis, mid to distal anterior wall hypokinesis, stage II diastolic
dysfunction, mild to moderate MR, aortic sclerosis, mild AR, moderate to severe TR, PAP 53 to 58 mmHg
Plan:
Patient seen at bedside after notified about recurrent chest pain after taking a shower
-Twelve-lead EKG without significant ischemic changes
-Chest shows mild interstitial pulmonary edema but no effusion or pneumothorax
-Repeat troponin elevated but coming down from earlier this admission. Will continue to trend
-Patient's had provided her sublingual nitroglycerin at bedside [he was asked to refrain from giving her medication while she under hospital care]. Additional sublingual nitroglycerin was provided by nursing with some relief. Will place
Nitropaste and also provided morphine 1 mg x 1.
-Reviewed cardiac catheterization with interventional cardiology, no further options for revascularization.
-Will continue to optimize medical therapy for macro and micro vascular disease: Continue aspirin 81 mg daily/Plavix 75 mg daily. Continue Ranexa 500 mg twice daily and will consider up titration. Continue losartan 25 mg daily. Continue
pravastatin [LDL 47 11/26/2023]. Contraindication: Beta-blockers secondary to symptomatic bradycardia arrhythmia/heart block. Not candidate for SGLT2 inhibitor given type 1 diabetic and associated risk for euglycemic DKA.
-Will update patient's outpatient camera engineer
-Discussed with hospitalist; transferred to [facility]
Ischemic cardiomyopathy with a EF 20-30% with ongoing heart failure decompensation
-Continue IV Lasix; increased to 60 mg twice daily
non-STEMI on admission with peak troponin 27.5; multivessel coronary artery disease status post CABG in 2019
-Left heart catheterization 11/25/2023 with PCI to diagonal
Symptomatic bradycardia/complete heart block following initiation of beta-ingrid following cardiac catheterization 11/26/2019
-Required transient use of IV dopamine
-Beta-ingrid discontinued. Avoid AV juliana blocking agents
-Rhythm sinus tach stable; continue to monitor on telemetry
-Would avoid pacemaker implant if able given chronic infectious issues
Acute on chronic back pain
-lumbar spine MRI with acute L2 fracture, acute T12 fracture, no evidence for discitis or abscess, liver findings suspicious for hepatitis
h/o chronic sternal osteomyelitis
on chronic cefdinir/fluconazole
HPI: Jessica is a 68 year old female with PMH of CAD with extensive prior cardiac stenting and CABG x2, chronic HFpEF, HTN, HLD, type 1 DM, sarcoidosis, sternal osteomyelitis, and radial artery thrombosis who presented to [facility] for evaluation of chest
pain. She started with chest pain last evening and took a SL nitro which relieved her pain initially. She then went to bed, but again woke up around 4 AM with recurrent chest pain with radiation into her arm. She again took SL nitro, however this
did not relieve her pain. She came to [facility] for evaluation as she states these symptoms are consistent with her prior angina. On arrival to [facility], she was noted to have elevated troponin of 1.26. She was started on IV heparin and given SL nitro, but
continued to have chest pain and arm pain, so she was started on IV nitro. She reports since starting IV nitro, her chest pain has resolved, but she continues to have L arm pain. Echo being completed during interview. She also had elevated troponin
of 2540 and chest xray showed pulmonary edema. Cardiology consulted for evaluation given chest pain with significant coronary disease history.
Progress Note - Editor Trade Journal
Subjective
Date of Service: November 29, 2023
Seen and examined several times at bedside with nursing and her . Reported chest discomfort left-sided going to left arm after taking a shower. Rated 10 out of 10 initially with improvement with nitroglycerin. Denies shortness of breath.
Denies palpitations.
Objective
Labs:
11/29/23 12:52
11/29/23 12:52
Labs
Hgb 14.2 g/dL (12.0-16.0) 11/29/23 12:52
Hct 40.5 % (37.0-47.0) 11/29/23 12:52
Plt Count 181 10^3/uL (130-400) 11/29/23 12:52
PT 17.0 Sec (11.4-14.6) H 11/26/23 21:50
PT Cancelled 11/26/23 21:50
INR 1.40 11/26/23 21:50
INR Cancelled 11/26/23 21:50
APTT 32.9 Sec (23.4-35.0) 11/26/23 21:50
Sodium 130 mmol/L (135-145) L 11/29/23 12:52
Sodium Cancelled 11/29/23 12:52
Potassium 3.9 mmol/L (3.5-5.1) 11/29/23 12:52
Potassium Cancelled 11/29/23 12:52
BUN 34 mg/dl (7-17) H 11/29/23 12:52
BUN Cancelled 11/29/23 12:52
Creatinine 0.9 mg/dL (0.6-1.0) 11/29/23 12:52
Creatinine Cancelled 11/29/23 12:52
Glucose 147 mg/dl (70-99) H 11/29/23 12:52
Glucose Cancelled 11/29/23 12:52
Troponins
11/26/23 11/26/23 11/26/23
14:43 15:47 15:47
Troponin I Cancelled Cancelled 24.200 H*
11/26/23 11/26/23 11/27/23
20:15 21:50 03:59
Troponin I 18.500 H* 17.200 H* 11.200 H* D
11/29/23
12:51
Troponin I 2.990 H*
Vital Signs and I&O:
Vital Signs
Temp Pulse Resp BP Pulse Ox
98.0 F 82 18 159/89 99
11/29/23 13:51 11/29/23 13:49 11/29/23 13:51 11/29/23 13:49 11/29/23 13:51
Vital Signs
Temp Pulse Resp BP Pulse Ox
98.0 F 82 18 159/89 99
11/29/23 13:51 11/29/23 13:49 11/29/23 13:51 11/29/23 13:49 11/29/23 13:51
Intake & Output
11/27/23 11/28/23 11/29/23 11/30/23
06:59 06:59 06:59 06:59
Intake Total 301.2 / 338.4 1344.7 / 1404.7 1260 / 1260
Output Total 2735 / 2810 2065 / 2115 50 / 50
Balance -2433.8 / -2471.6 -720.3 / -710.3 1210 / 1210
Physical Exam
Physical Exam
GEN: AO x 3. Lying supine. 98% on room air
HEENT: mmm
LUNGS: Bronchovesicular breath sounds decreased at bases but clear
CV: Reg, S1/S2, no murmur
EXT: No edema
NEURO: grossly nonfocal
SKIN: Warm, pink, dry. No rash. Sternotomy scar
--- NOTE | 2023-11-29 15:08 | CM ---
Chart reviewed and plan is for acute rehab at [facility], referral sent to [facility], waiting on physiatry evaluation and determination.
Plan; [facility] acute rehab if approved.
[2023-11-29 16:42] LABS: Glucose - Point of Care 165 mg/dl (70-99)
[2023-11-29] MEDS: LOVENOX 40 MG SC (17:05)
[2023-11-29] MEDS: LASIX 60 MG IV (17:06)
[2023-11-29 21:22] LABS: Glucose - Point of Care 147 mg/dl (70-99)
--- NOTE | 2023-11-29 21:50 | W.PN.UPDATE ---
Update Note
Progress Note Update
it was recommended by cardiology today to transfer pt to IVU for ongoing issues with chest pain, but unfortunately at the time there were no beds available. Will do so now as bed avail.
pt still c/o CP. Repeat trop pending.
--- NOTE | 2023-11-29 23:30 | PTCARENOTE ---
Pt with CP this evening. Had an episode earlier in the day. Pt rates CP(6), L arm pain (7) and lower back (8). Roxicodone given for back pain. DUANE Folrence notified and order received for NTP and IV Morphine. VSS. Pt appears RVIERA 95% on 2.5L O2
and anxious. NSR on the monitor. Pt to be transferred to IVU.
[2023-11-29] MEDS: FLEXERIL 5 MG PO (23:31)
[2023-11-29] MEDS: DUONEB 3 ML INH (23:37)
--- NOTE | 2023-11-29 23:39 | PTCARENOTE ---
Pt transferred to room 2242. Pt AAox3 VVS, on 2.5L with O2 98% with Left posterior whizzing. Pt. C/O CP 7/10, left arm pain 6/10, and back pain 8/10. Respiratory Tx and PRN Flexeril given. DIRECTOR OUTCOMES notified and STAT Morphine x 1 ordered.
[2023-11-30] VITALS (11 sets, daily range): BP systolic 112–131; BP diastolic 51–82; BMI 24.6
[2023-11-30] MEDS: MORPHINE SULFATE 1 MG IV ×2 (00:05→08:16)
[2023-11-30] MEDS: NITRO-BID 0.5 INCH TOPICAL ×4 (03:10→20:42)
[2023-11-30] MEDS: SYNTHROID 112 MCG PO (05:13)
[2023-11-30 05:49] LABS: Hematocrit 42.2 % (37.0-47.0); Hemoglobin 14.9 g/dL (12.0-16.0); Mean Corp Hgb Conc. 35.3 g/dL (33.0-37.0); Mean Corpuscular Hgb 28.1 pg (27.0-31.0); Mean Corpuscular Volume 79.5 fL (81.0-99.0); Mean Platelet Volume 11.4 fL (7.4-10.4); Platelet Count 204 10^3/uL (130-400); Red Blood Cell Count 5.31 10^6/uL (4.20-5.40); Red Cell Dist. Width 15.4 % (11.5-14.5); White Blood Cell Count 11.1 10^3/uL (4.8-10.8)
[2023-11-30 06:11] LABS: ALT (SGPT) 426 U/L (0-35); AST (SGOT) 449 U/L (14-36); Albumin 3.6 g/dl (3.5-5.0); Alkaline Phosphatase 158 U/L (38-126); Blood Urea Nitrogen 30 mg/dl (7-17); Calcium 9.3 mg/dl (8.4-10.2); Carbon Dioxide 27 mmol/L (22-30); Chloride 93 mmol/L (98-107); Estimated Creatinine Clearance 61 ml/min; Glucose 114 mg/dl (70-99); Magnesium 2.1 mg/dl (1.6-2.3); Potassium 4.2 mmol/L (3.5-5.1); Sodium 128 mmol/L (135-145); Total Bilirubin 0.6 mg/dl (0.2-1.3); Total Protein 6.2 g/dl (6.3-8.2); eGFR > 60.00
[2023-11-30 07:53] LABS: Glucose - Point of Care 194 mg/dl (70-99)
[2023-11-30] MEDS: LIDOCAINE 4% PATCH 2 PATCH TOPICAL (08:23)
--- NOTE | 2023-11-30 08:30 | PTCARENOTE ---
Pt c/o 4 out of 10 mid sternal to left breast and left arm pressure. Pt states that it is the same discomfort as what brought her into the hospital. Pt states that she feels very tired. VSS Troponin 19, morphine given per MD order.
[2023-11-30] MEDS: DUONEB 3 ML INH ×3 (08:34→19:36)
[2023-11-30] MEDS: ASPIR LOW (ENTERIC COATED) 81 MG PO (09:35)
[2023-11-30] MEDS: MIRALAX 17 GRAMS PO (09:35)
[2023-11-30] MEDS: OMNICEF 300 MG PO ×2 (09:36→19:56)
[2023-11-30] MEDS: PLAVIX 75 MG PO (09:36)
[2023-11-30] MEDS: SENOKOT 8.6 MG PO ×2 (09:37→19:56)
[2023-11-30] MEDS: FLEXERIL 5 MG PO ×2 (09:37→20:04)
[2023-11-30] MEDS: LEXAPRO 5 MG PO (09:37)
[2023-11-30] MEDS: PROTONIX 40 MG PO (09:37)
[2023-11-30] MEDS: RANEXA EXTENDED RELEASE 500 MG PO ×2 (09:37→19:56)
--- NOTE | 2023-11-30 09:53 | W.PN.CARDCBS ---
Addendum entered and electronically signed by Cecilio Mosqueda MD 11/30/23 11:39:
Impression:
-Presented 11/25/2023 with chest pain
-Episode of severe bradycardia and complete heart block, transient.
-VDRF, intubated during episode 11/25, extubated 11/26
-Elevated troponin, NSTEMI: Peak troponin 27.5
Diag PCI 11/25/23 (Angiographically stable and patent GOYAL-LAD and SVG-PDA). IC feels no further options for revascularization.
-Newly observed HFrEF
EF 25-30% by ventriculography and by echocardiogram
-Hyponatremia
-Severe back discomfort with fractures
-CAD
h/o (now) 12 coronary stents
s/p CABG x 2 (GOYAL to LAD, SVG to RPDA) 03/11/2020
s/p PCI of D1 07/29/2023 and stenting at distal edge of prior stent with a 2.25 x 12 mm Florence stent
s/p diagonal branch with a 2.0 x 12 mm Florence stent 11/25/2023-HTN
-HLD
-Type I DM
-h/o lung sarcoidosis
-CKD 3
-h/o chronic sternal osteomyelitis
on chronic cefdinir/fluconazole-h/o radial artery thrombosis
-Hypothyroidism
Echo 03/09/2020: EF 60 to 65%, mild AI, trace TR,
Echo 11/25/2023: EF 25 to 30%, LAD regional wall motion abnormality, LV most vigorous at base, mid to distal inferior, inferolateral hypokinesis, mid to distal lateral wall hypokinesis, mid to distal anterior wall hypokinesis, stage II diastolic
dysfunction, mild to moderate MR, aortic sclerosis, mild AR, moderate to severe TR, PAP 53 to 58 mmHg
Plan:
Went to see patient this morning. She had nausea and vomiting after eating her breakfast this am. Still dry heaving and very nauseous. Currently denies chest pain. Will provide dose of IV Zofran.
Abnormal LFTs throughout admission AST/ALT as high as 603/472; currently AST/ALT 449 426.
-Ultrasound of abdomen shows cholelithiasis without acute acute cholecystitis.
Question if some of patient's ongoing symptoms could also be GI related. Consider GI evaluation.
Multivessel CAD
-non-STEMI on admission with peak troponin 27.5; multivessel coronary artery disease status post CABG in 2019
-s/p diagonal branch stent 2.0 x 12 mm Donald stent 11/25/2023
-Patient had recurrent chest pain after taking a shower 11/29/2023. Twelve-lead EKG without significant ischemic changes. Chest shows mild interstitial pulmonary edema but no effusion or pneumothorax. Repeat troponin elevated but coming down from
earlier this admission. Given sublingual nitroglycerin and morphine with some relief.
-Started on Nitropaste 11/29/23 and also provided morphine 1 mg x 1.
-Reviewed cardiac catheterization with interventional cardiology, no further options for revascularization.
-Will continue to attempt to optimize medical therapy for macro and micro vascular disease:
Continue DAPT
Continue Ranexa 500 mg twice daily and will consider up titration.
Continue NTG paste
Resume losartan 25 mg daily starting 11/29.
Contraindication: Beta-blockers secondary to symptomatic bradycardia arrhythmia/heart block.
Not candidate for SGLT2 inhibitor given type 1 diabetic and associated risk for euglycemic DKA.
Statin currently on hold due to elevated LFTs, [LDL 47 11/26/2023].
Ischemic cardiomyopathy with a EF 20-30% with ongoing heart failure decompensation, will continue to attempt GDMTfor HFrEF as tolerated
Continue IV Lasix; increased to 60 mg twice daily 11/29/2023
ARB resuming 11/30/23, Renal function and electrolytes stable
Contraindication: Beta-blockers secondary to symptomatic bradycardia arrhythmia/heart block.
Not candidate for SGLT2 inhibitor given type 1 diabetic and associated risk for euglycemic DKA.
Reassess LV function 40 days after acute AL and revascularization. There may be consideration for ICD and in her case [employer]DOCTOR[employer] RESEARCH FELLOW-D however this is risky given her chronic infectious state
Symptomatic bradycardia/complete heart block following initiation of beta-ingrid following cardiac catheterization 11/26/2023
-Required transient use of IV dopamine
-Beta-ingrid discontinued. Avoid AV juliana blocking agents
-Rhythm sinus tach stable; continue to monitor on telemetry
-Would avoid pacemaker implant if able given chronic infectious issues
Acute on chronic back pain
-lumbar spine MRI with acute L2 fracture, acute T12 fracture, no evidence for discitis or abscess, liver findings suspicious for hepatitis
h/o chronic sternal osteomyelitis
on chronic cefdinir/fluconazole
Original Note:
Today's Communication / Plan
-
Continue aspirin, Plavix, Ranexa and Nitropaste
IV Zofran prn for nausea
Consider GI consult given LFT elevation and intermittent nausea/vomiting
Impression / Plan
-
.
PCP: Dr. Caitie Laird
Top Bottom Attaching Machine Operator: Dr. Mame Bardales ([facility])
Impression:
-Presented 11/25/2023 with chest pain
-Episode of severe bradycardia and complete heart block.
-VDRF, intubated during episode 11/25, extubated 11/26
-Elevated troponin, NSTEMI: Peak troponin 27.5 resulting in diag PCI 11/25/23
-Hyponatremia
-HFrEF : EF 25-30% by ventriculography and by echocardiogram
-Severe back discomfort with fractures
-CAD
h/o (now) 12 coronary stents
s/p CABG x 2 (GOYAL to LAD, SVG to RPDA) 03/11/2020
s/p PCI of D1 07/29/2023 and stenting at distal edge of prior stent with a 2.25 x 12 mm Donald stent
s/p diagonal branch with a 2.0 x 12 mm Florence stent 11/25/2023
-HTN
-HLD
-Type I DM
-h/o lung sarcoidosis
-CKD 3
-h/o chronic sternal osteomyelitis
on chronic cefdinir/fluconazole
-h/o radial artery thrombosis
-Hypothyroidism
Echo 03/09/2020: EF 60 to 65%, mild AI, trace TR,
Echo 11/25/2023: EF 25 to 30%, LAD regional wall motion abnormality, LV most vigorous at base, mid to distal inferior, inferolateral hypokinesis, mid to distal lateral wall hypokinesis, mid to distal anterior wall hypokinesis, stage II diastolic
dysfunction, mild to moderate MR, aortic sclerosis, mild AR, moderate to severe TR, PAP 53 to 58 mmHg
Plan:
Went to see patient this morning. She had nausea and vomiting after eating her breakfast this am. Still dry heaving and very nauseous. Currently denies chest pain. Will provide dose of IV Zofran.
Abnormal LFTs throughout admission AST/ALT as high as 603/472; currently AST/ALT 449 426.
-Ultrasound of abdomen shows cholelithiasis without acute acute cholecystitis.
-Question if some of patient's ongoing symptoms could also be GI related. Consider GI evaluation.
Multivessel CAD
-non-STEMI on admission with peak troponin 27.5; multivessel coronary artery disease status post CABG in 2019
-s/p diagonal branch stent 2.0 x 12 mm Florence stent 11/25/2023
-Patient had recurrent chest pain after taking a shower 11/29/2023. Twelve-lead EKG without significant ischemic changes. Chest shows mild interstitial pulmonary edema but no effusion or pneumothorax. Repeat troponin elevated but coming down from
earlier this admission. Given sublingual nitroglycerin and morphine with some relief.
-Started on Nitropaste 11/29/23 and also provided morphine 1 mg x 1.
-Reviewed cardiac catheterization with interventional cardiology, no further options for revascularization.
-Will continue to optimize medical therapy for macro and micro vascular disease: Continue aspirin 81 mg daily/Plavix 75 mg daily. Continue Ranexa 500 mg twice daily and will consider up titration. Continue losartan 25 mg daily. Contraindication:
Beta-blockers secondary to symptomatic bradycardia arrhythmia/heart block. Not candidate for SGLT2 inhibitor given type 1 diabetic and associated risk for euglycemic DKA.
-statin currently on hold due to elevated LFTs, [LDL 47 11/26/2023].
Ischemic cardiomyopathy with a EF 20-30% with ongoing heart failure decompensation
-Continue IV Lasix; increased to 60 mg twice daily 11/29/2023
-ARB currently on hold. Consider resuming at 25 mg daily
-Renal function and electrolytes stable
Symptomatic bradycardia/complete heart block following initiation of beta-ingrid following cardiac catheterization 11/26/2023
-Required transient use of IV dopamine
-Beta-ingrid discontinued. Avoid AV juliana blocking agents
-Rhythm sinus tach stable; continue to monitor on telemetry
-Would avoid pacemaker implant if able given chronic infectious issues
Acute on chronic back pain
-lumbar spine MRI with acute L2 fracture, acute T12 fracture, no evidence for discitis or abscess, liver findings suspicious for hepatitis
h/o chronic sternal osteomyelitis
on chronic cefdinir/fluconazole
HPI: Jessica is a 68 year old female with PMH of CAD with extensive prior cardiac stenting and CABG x2, chronic HFpEF, HTN, HLD, type 1 DM, sarcoidosis, sternal osteomyelitis, and radial artery thrombosis who presented to [facility] for evaluation of chest
pain. She started with chest pain last evening and took a SL nitro which relieved her pain initially. She then went to bed, but again woke up around 4 AM with recurrent chest pain with radiation into her arm. She again took SL nitro, however this
did not relieve her pain. She came to [facility] for evaluation as she states these symptoms are consistent with her prior angina. On arrival to [facility], she was noted to have elevated troponin of 1.26. She was started on IV heparin and given SL nitro, but
continued to have chest pain and arm pain, so she was started on IV nitro. She reports since starting IV nitro, her chest pain has resolved, but she continues to have L arm pain. Echo being completed during interview. She also had elevated troponin
of 2540 and chest xray showed pulmonary edema. Cardiology consulted for evaluation given chest pain with significant coronary disease history.
Progress Note - Top Bottom Attaching Machine Operator
Subjective
Date of Service: November 30, 2023
Went to see patient this morning. She had nausea and vomiting after eating her breakfast this am. Still dry heaving and very nauseous. Currently denies chest pain. Will provide dose of IV Zofran.
at bedside
Objective
Labs:
11/30/23 05:02
11/30/23 05:02
Labs
Hgb 14.9 g/dL (12.0-16.0) 11/30/23 05:02
Hct 42.2 % (37.0-47.0) 11/30/23 05:02
Plt Count 204 10^3/uL (130-400) 11/30/23 05:02
PT 17.0 Sec (11.4-14.6) H 11/26/23 21:50
PT Cancelled 11/26/23 21:50
INR 1.40 11/26/23 21:50
INR Cancelled 11/26/23 21:50
APTT 32.9 Sec (23.4-35.0) 11/26/23 21:50
Sodium 128 mmol/L (135-145) L 11/30/23 05:02
Potassium 4.2 mmol/L (3.5-5.1) 11/30/23 05:02
BUN 30 mg/dl (7-17) H 11/30/23 05:02
Creatinine 0.8 mg/dL (0.6-1.0) 11/30/23 05:02
Glucose 114 mg/dl (70-99) H 11/30/23 05:02
Troponins
11/29/23 11/29/23 11/30/23
12:51 21:58 05:02
Troponin I 2.990 H* 7.270 H* 19.400 H* D
Vital Signs and I&O:
Vital Signs
Temp Pulse Resp BP Pulse Ox
98.3 F 102 17 131/82 94
11/30/23 03:24 11/30/23 09:32 11/30/23 03:24 11/30/23 09:32 11/30/23 03:24
Vital Signs
Temp Pulse Resp BP Pulse Ox
98.3 F 102 17 131/82 94
11/30/23 03:24 11/30/23 09:32 11/30/23 03:24 11/30/23 09:32 11/30/23 03:24
Intake & Output
11/28/23 11/29/23 11/30/23 12/01/23
06:59 06:59 06:59 06:59
Intake Total 1344.7 / 1404.7 1260 / 1260 1200 / 1200
Output Total 2064 / 2114 50 / 50
Balance -720.3 / -710.3 1210 / 1210 1200 / 1200
Physical Exam
Physical Exam
GEN: Sitting on edge of bed with emesis basin in lap, awake, Ox3
HEENT: supple, anicteric, mmm
LUNGS: Crackles at bilateral bases otherwise CTA, no wheezes/rales
CHEST: Sternotomy scar well-healed
CV: Reg, S1/S2, no murmur, rub or gallop
ABD: soft, BS+, NT/ND
EXT: No edema, clubbing or cyanosis
NEURO: Gross non-focal
SKIN: No rash, warm, dry, pink
[2023-11-30] MEDS: PT'S OWN INSULIN PUMP - NovoLOG 7.3 UNIT SC (10:00)
[2023-11-30] MEDS: ZOFRAN 4 MG PO (10:19)
--- NOTE | 2023-11-30 10:23 | PTCARENOTE ---
Pt vomited during eating breakfast. The emesis was about 200 ml of steen liquid and undigested fruit. PA aware. Zofran given. Will monitor.
--- NOTE | 2023-11-30 10:34 | W.PN.HOSP.TC ---
Today's Communication/Plan
-
Anti-ischemic regimen. Cardiology reeval. GI evaluation as well.
Assessment / Plan
Assessment / Plan
Physical exam:
General: Acutely ill
HEENT: Normocephalic, Atraumatic and Moist Mucous Membranes
Respiratory: Coarse crackles in the bases; Negative Wheezes or Rhonchi
Cardiac: Sternal scar, Regular Rhythm and S1/S2, no murmurs rubs or gallops
GI: Soft, Nontender and Nondistended
Musculoskeletal: Decreased range of motion in the back. Tenderness in the back. No Clubbing, No Cyanosis. Bilateral edema present lower extremities
Neuro: Alert oriented x 3, no gross neurological deficits.
Psych: Calm, normal judgment and insight.
A/P:
NSTEMI, recurrent:
Recurrent chest pain with elevated troponin since yesterday so transferred to IVU
Trop today 19.4 from 7.2 yesterday
On nitro paste--> might consider changing to IV nitro drip
IV morphine as needed
Continue cardiac monitoring
Increased IV Lasix to 60 mg twice a day since yesterday
I am not sure what else we can offer medically so we discussed about changing CODE STATUS at this point and also possibility of hospice discussion. She would like to change to DNR. Patient and family open to discussion so we will have hospice
consult. Interventional cardiology feels no further options for revascularization either. In the meantime, continue aggressive medical management as much as patient would be able to tolerate.
Cardiology following
Status postcardiac cath on 11/24 with stenting of diagonal branch
Continue dual antiplatelet therapy aspirin and Plavix
Started on metoprolol XL but discontinued after cardiac event.
On statins
On Ranexa
Rehab consulted
Discussed with at bedside today
Elevated LFTs and persistent nausea and vomiting:
Request GI consult-[place] texted GI today.
Cardiology also feels GI consult would be beneficial.
Monitor trend
Ultrasound right upper quadrant with cholelithiasis without evidence of acute cholecystitis
Hepatitis screen negative
Holding fluconazole and statin
Acute systolic congestive heart failure:
IV diuretics, Lasix 60 mg twice a day
Renal function and electrolyte today pending
BNP upon admission more than 27,000
Monitor strict I/O
Monitor daily weight
Monitor renal function and electrolytes
Reviewed latest echocardiogram on our system
Continue guideline-directed medical therapy for heart failure (GDMT)
Fluid restriction
Salt restriction
Heart failure education
Follow up clinical response
Unresponsiveness due to complete heart block:
Back in normal sinus rhythm
Bradycardia trigger event by [id number] beta-blockers at all
No need for pacemaker per cardiology
Status post intubated last evening
Started on dopamine--> off pressors
Cardiology on board
Intubated due to airway compromise:
Off mechanical ventilation
Hypotension:
Resolved
Probably medications related
Severe hyponatremia:
Monitoring sodium closely
Nephrology following
Sodium up to 128 today (from as low as 120)
Chronic sternal osteomyelitis:
On oral cefdinir--> ID consulted
ID change fluconazole to IV micafungin for now
Repeat culture during this hospitalization no growth
Acute on chronic back pain due to T12 and L2 acute fracture:
Continue pain meds
Reviewed MRI of the back
No evidence of infection
Might need to contemplate candidacy for kyphoplasty but needs to see how she does with pain meds and therapy.
Diabetes mellitus type 1:
Continue diabetic diet
Continue insulin pump but monitor sugars closely
Hypothyroidism:
Continue thyroid replacement
DVT prophylaxis:
SCDs
Lovenox
CODE STATUS:
DNR
Total Critical Care Time 35 minutes. I was immediately available to the patient and staff. I personally examined, reviewed labs, diagnostic images/reports, interpretations, treatment plans, discussed patient care with other providers and family
or caregivers (if patient is unable to make decisions), entered orders as appropriate and documented the medical record.
Anticipated Discharge: > 48 hours
Subjective/Interval History
-
Date of Service: November 30, 2023
Patient continues to have chest pain ongoing despite maximal therapy of treatment. Patient with nausea vomiting. Overall looks frail.
Objective Data
-
Labs:
Laboratory Results
11/30/23
05:02
WBC 11.1 H
Hgb 14.9
Hct 42.2
Plt Count 204
Sodium 128 L
Potassium 4.2
Chloride 93 L
Carbon Dioxide 27
BUN 30 H
Creatinine 0.8
Glucose 114 H
Calcium 9.3
Total Bilirubin 0.6
AST 449 H
ALT 426 H
Alkaline Phosphatase 158 H
Vital Signs:
Vital Signs
Temp Pulse Resp BP Pulse Ox
98.3 F 102 17 131/82 94
11/30/23 03:24 11/30/23 09:32 11/30/23 03:24 11/30/23 09:32 11/30/23 03:24
I&O
11/29/23 11/30/23 12/01/23
06:59 06:59 06:59
Intake Total 1260 / 1260 1200 / 1200
Output Total 50 / 50
Balance 1210 / 1210 1200 / 1200
--- NOTE | 2023-11-30 11:21 | W.PN.NEPH.PH ---
Today's Communication / Plan
-
cont FR and lasix
Assessment/Plan
-
IMP:
ACS s/p Stent D branch 11/24
ASCVD
Acute systolic and diastolic CHF 25-30%
elevated LFTs
mild to mod MR
mod to severe TR
Acute on chronic Hyponatremia-follows Dr Bliss out pt
DM-I
Benign Hypertension
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
Hypothyroidism
Lung sarcoidosis
PLan:
A/w ACS known complex CAD s/p stent 11/24
hyponatremia-acute on chronic likely exaggerated by CHF
sodium down to 128, possible from pain causing high ADH activity
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
U osmo 340, U na relatively low 33
would continue lasix IV dose increased to 60 BID bu cards on 11/28
LVEDP was high at 44 suspect hyponatremia related to hypervolemia in setting of decompensated congestive heart failure
maintain FR 40 ounces/day
TSH and cortisol were ok
high LFTs-GI consulted
d/w pt and
-
-
Date of Service: November 30, 2023
CC / HPI / ROS
-
Chief Complaint:
hyponatremia
History of Present Illness:
sodium slightly down to 128
cr at 0.8
wt is slightly up
BP stable
Review of Systems:
c/o CP on and off , on nitro paste, nausea+ vomiting this am
decreased appetite
no sob
Labs
-
Labs:
WBC 11.1 10^3/uL (4.8-10.8) H 11/30/23 05:02
RBC 5.31 10^6/uL (4.20-5.40) 11/30/23 05:02
Hgb 14.9 g/dL (12.0-16.0) 11/30/23 05:02
Hct 42.2 % (37.0-47.0) 11/30/23 05:02
Plt Count 204 10^3/uL (130-400) 11/30/23 05:02
Sodium 128 mmol/L (135-145) L 11/30/23 05:02
Potassium 4.2 mmol/L (3.5-5.1) 11/30/23 05:02
Chloride 93 mmol/L (98-107) L 11/30/23 05:02
Carbon Dioxide 27 mmol/L (22-30) 11/30/23 05:02
BUN 30 mg/dl (7-17) H 11/30/23 05:02
Creatinine 0.8 mg/dL (0.6-1.0) 11/30/23 05:02
eGFR > 60.00 11/30/23 05:02
Glucose 114 mg/dl (70-99) H 11/30/23 05:02
Calcium 9.3 mg/dl (8.4-10.2) 11/30/23 05:02
Phosphorus 5.2 mg/dl (2.5-4.5) H 11/26/23 03:52
Diz-D-Mrhswdylwcf Pept > 69089 pg/ml 11/29/23 12:53
Albumin 3.6 g/dl (3.5-5.0) 11/30/23 05:02
Physical Exam
-
Vital Signs:
Vital Signs
Temp Pulse Resp BP Pulse Ox
98.0 F 93 16 131/82 93
11/30/23 11:15 11/30/23 11:00 11/30/23 11:15 11/30/23 09:32 11/30/23 11:15
Cardiovascular:: Regular rate and rhythm
Lung Excursion:: Normal (decreased)
Abdomen:: Nontender and Soft
Extremity Edema:: None: Bilateral:
Browning Catheter: No
[2023-11-30] MEDS: LASIX 60 MG IV ×2 (12:15→18:10)
--- NOTE | 2023-11-30 14:41 | CM ---
spoke to pt and husb in room, hospitalist requested hospice consult. i briefly explained the hospice program and asked if they would like hospoice to talk to them. they were not sure but agreed. referral placed in allscripts.
--- NOTE | 2023-11-30 15:05 | HOSPNOTE ---
Referral received. Called and spoke to patients spouse. Reviewed hospice and the philosophy. Clarified some information spouse had regarding hospice. He will discuss with patient. Also awaiting GI input as well. Will give paper information regarding
hospice between tomorrow and Saturday as requested by spouse. Attending and CM updated. Hospice will continue to follow and be available if hospice is wanted. Spouse has hospice nurse direct phone number as well.
[2023-11-30] MEDS: MYCAMINE 105 MG IV (15:12)
[2023-11-30] MEDS: PT'S OWN INSULIN PUMP - NovoLOG SC ×2 (15:12→22:02)
[2023-11-30] MEDS: PT'S OWN INSULIN PUMP - NovoLOG 5.7 UNIT SC (17:05)
[2023-11-30 17:08] LABS: Glucose - Point of Care 162 mg/dl (70-99)
[2023-11-30] MEDS: LOVENOX 40 MG SC (18:10)
[2023-11-30] MEDS: COLACE 100 MG PO (19:56)
[2023-11-30 21:36] LABS: Glucose - Point of Care 123 mg/dl (70-99)
[2023-11-30] MEDS: ROXICODONE 10 MG PO (21:45)
[2023-12-01] VITALS (10 sets, daily range): BP systolic 97–121; BP diastolic 60–79; PULSE 77; O2SAT 95; BMI 24.5
--- NOTE | 2023-12-01 02:23 | PTCARENOTE ---
Pt. complained of left upper arm pain/achiness level 8 out of 10 at beginning of shift. Stated that it was only present in her arm and not radiating into her chest and that it positional changes gave temporary relief. Medicated with oxycodone 10
mg at 2145 which brought pain down to a level 1, pt. stated she felt much relief. Otherwise VSS, NSR on the monitor. Able to ambulate with assist x 1 & RW to use bathroom. Does get RIVERA, pulse ox on 3L O2 mid 90's. Pt. currently sleeping.
[2023-12-01] MEDS: NITRO-BID 0.5 INCH TOPICAL ×4 (04:05→21:52)
[2023-12-01] MEDS: SYNTHROID 112 MCG PO (04:06)
[2023-12-01] MEDS: ROXICODONE 5 MG PO (04:09)
[2023-12-01 04:26] LABS: % Basophils 0.3 % (0-2); % Eosinophils 0.3 % (0-6); % Immature Granulocytes 0.2 % (0-0.5); % Lymphocytes 13.2 % (20.5-51.1); % Monocytes 9.1 % (1.7-9.3); % Neutrophils 76.9 % (42.2-75.2); Absolute Lymphocytes 1.6 10^3/uL (1.2-3.4); Absolute Monocytes 1.1 10^3/uL (0.1-0.6); Absolute Neutrophils 9.3 10^3/uL (1.4-6.5); Hematocrit 40.9 % (37.0-47.0); Hemoglobin 14.2 g/dL (12.0-16.0); Mean Corp Hgb Conc. 34.7 g/dL (33.0-37.0); Mean Corpuscular Hgb 28.5 pg (27.0-31.0); Mean Platelet Volume 11.4 fL (7.4-10.4); Nucleated Red Blood Cells % 0 %; Platelet Count 177 10^3/uL (130-400); Red Blood Cell Count 4.99 10^6/uL (4.20-5.40); Red Cell Dist. Width 15.6 % (11.5-14.5); White Blood Cell Count 12.2 10^3/uL (4.8-10.8)
[2023-12-01 05:02] LABS: ALT (SGPT) 342 U/L (0-35); AST (SGOT) 417 U/L (14-36); Albumin 3.5 g/dl (3.5-5.0); Alkaline Phosphatase 137 U/L (38-126); Blood Urea Nitrogen 40 mg/dl (7-17); Calcium 9.3 mg/dl (8.4-10.2); Carbon Dioxide 29 mmol/L (22-30); Chloride 92 mmol/L (98-107); Estimated Creatinine Clearance 45 ml/min; Glucose 123 mg/dl (70-99); Magnesium 2.1 mg/dl (1.6-2.3); Potassium 4.5 mmol/L (3.5-5.1); Sodium 127 mmol/L (135-145); eGFR 54.06
[2023-12-01 07:45] LABS: Glucose - Point of Care 128 mg/dl (70-99)
--- NOTE | 2023-12-01 09:37 | W.PN.HOSP.TC ---
Today's Communication/Plan
-
Diuretics changed to oral. Wean oxygen.
Assessment / Plan
Assessment / Plan
Physical exam:
General: Acutely ill
HEENT: Normocephalic, Atraumatic and Moist Mucous Membranes
Respiratory: Coarse crackles in the bases; Negative Wheezes or Rhonchi
Cardiac: Sternal scar, Regular Rhythm and S1/S2, no murmurs rubs or gallops
GI: Soft, Nontender and Nondistended
Musculoskeletal: Decreased range of motion in the back. Tenderness in the back. No Clubbing, No Cyanosis. Bilateral edema present lower extremities
Neuro: Alert oriented x 3, no gross neurological deficits.
Psych: Calm, normal judgment and insight.
A/P:
NSTEMI, recurrent:
Recurrent chest pain with elevated troponin since yesterday so transferred to IVU
Check troponin as indicated
On nitro paste--> might change back to her oral long-acting nitrate
IV morphine as needed
Continue cardiac monitoring
IV diuretics to switch to oral today per cardiology
Patient will not pursue hospice at this time. She does want to keep CODE STATUS DNR. She does understand we had limited options for her medical treatment moving forward. Continue medical management.
Cardiology following
Status postcardiac cath on 11/24 with stenting of diagonal branch
Continue dual antiplatelet therapy aspirin and Plavix
Started on metoprolol XL but discontinued after cardiac event.
On statins
On Ranexa
Rehab consulted
Discussed with at bedside today
Elevated LFTs:
Nausea and vomiting subsided
GI consulted--> we will follow-up further recommendations
Monitor LFTs
Ultrasound right upper quadrant with cholelithiasis without evidence of acute cholecystitis
Hepatitis screen negative
Holding fluconazole and statin
Acute systolic congestive heart failure:
Change IV diuretics to oral--> Lasix 40 mg oral p.o. daily
Renal function and electrolyte today pending
BNP upon admission more than 27,000
Monitor strict I/O
Monitor daily weight
Monitor renal function and electrolytes
Reviewed latest echocardiogram on our system
Continue guideline-directed medical therapy for heart failure (GDMT)
Fluid restriction
Salt restriction
Heart failure education
Follow up clinical response
Acute hypoxic respiratory insufficiency:
On supplemental oxygen
Should be able to wean off oxygen over the next 24 to 48 hours
Unresponsiveness due to complete heart block:
Back in normal sinus rhythm
Bradycardia trigger event by [id number] beta-blockers at all
No need for pacemaker per cardiology
Status post intubated last evening
Started on dopamine--> off pressors
Cardiology on board
Intubated due to airway compromise:
Off mechanical ventilation
Hypotension:
Resolved
Probably medications related
Severe hyponatremia:
Monitoring sodium closely
Nephrology following
Sodium 127 today (from as low as 120)--> nephrology considering [place]a today
Chronic sternal osteomyelitis:
On oral cefdinir--> ID consulted
ID change fluconazole to IV micafungin for now
Repeat culture during this hospitalization no growth
Acute on chronic back pain due to T12 and L2 acute fracture:
Continue pain meds
Reviewed MRI of the back
No evidence of infection
Might need to contemplate candidacy for kyphoplasty but needs to see how she does with pain meds and therapy.
Diabetes mellitus type 1:
Continue diabetic diet
Continue insulin pump but monitor sugars closely
Hypothyroidism:
Continue thyroid replacement
DVT prophylaxis:
SCDs
Lovenox
CODE STATUS:
DNR
Total time spent on today's encounter was 52 minutes which included time spent in counseling the patient/family regarding diagnosis and treatment plan as listed above, goals of care, and symptom management. Case was discussed with nursing staff,
specialists, and care coordinators/case management. All labs and imaging personally reviewed by me. Remainder the time spent in detailed review of previous records, lab data, imaging, and other medical provider documentation.
Anticipated Discharge: 24 - 48 hours
Subjective/Interval History
-
Date of Service: December 01, 2023
Patient denies chest pain today or shortness of breath. On 3 L of oxygen. Afebrile
Objective Data
-
Labs:
Laboratory Results
12/01/23
04:03
WBC 12.2 H
Hgb 14.2
Hct 40.9
Plt Count 177
Sodium 127 L
Potassium 4.5
Chloride 92 L
Carbon Dioxide 29
BUN 40 H
Creatinine 1.1 H
Glucose 123 H
Calcium 9.3
Total Bilirubin 1.0
AST 417 H
ALT 342 H
Alkaline Phosphatase 137 H
Vital Signs:
Vital Signs
Temp Pulse Resp BP Pulse Ox
98 F 85 20 107/62 94
12/01/23 07:39 12/01/23 04:05 12/01/23 07:39 12/01/23 04:05 12/01/23 07:39
I&O
11/30/23 12/01/23 12/02/23
06:59 06:59 06:59
Intake Total 1200 / 1200 990 / 990
Output Total 500 / 500
Balance 1200 / 1200 490 / 490
--- NOTE | 2023-12-01 09:42 | W.PN.CARDCBS ---
Today's Communication / Plan
-
IV Lasix increased to 60 mg twice daily 11/29/2023 but now BUN/Creat is up to 40 and 1.1 on 11/30
Will stop IV Lasix and transition to oral Lasix 40 mg twice daily
Note, losartan was initiated 11/29
Will defer to renal if they prefer an alternate approach/dosing
Impression / Plan
-
.
PCP: Dr. Caitie Laird
Spinal Surgeon: Dr. Mame Bardales ([facility])
Impression:
-Presented 11/25/2023 with chest pain
-Episode of severe bradycardia and complete heart block, transient.
-VDRF, intubated during episode 11/25, extubated 11/26
-Elevated troponin, NSTEMI: Peak troponin 27.5
Diag PCI 11/25/23 (Angiographically stable and patent GOYAL-LAD and SVG-PDA). IC feels no further options for revascularization.
-Newly observed HFrEF
EF 25-30% by ventriculography and by echocardiogram
-Hyponatremia
-Severe back discomfort with fractures
-CAD
h/o (now) 12 coronary stents
s/p CABG x 2 (GOYAL to LAD, SVG to RPDA) 03/11/2020
s/p PCI of D1 07/29/2023 and stenting at distal edge of prior stent with a 2.25 x 12 mm Donald stent
s/p diagonal branch with a 2.0 x 12 mm [place] stent 11/25/[id number]
-Type I DM
-h/o lung sarcoidosis
-CKD 3
-h/o chronic sternal osteomyelitis
on chronic cefdinir/fluconazole-h/o radial artery thrombosis-Hypothyroidism
Echo 03/09/2020: EF 60 to 65%, mild AI, trace TR,
Echo 11/25/2023: EF 25 to 30%, LAD regional wall motion abnormality, LV most vigorous at base, mid to distal inferior, inferolateral hypokinesis, mid to distal lateral wall hypokinesis, mid to distal anterior wall hypokinesis, stage II diastolic
dysfunction, mild to moderate MR, aortic sclerosis, mild AR, moderate to severe TR, PAP 53 to 58 mmHg
Plan:
Went to see patient this morning. She had nausea and vomiting after eating her breakfast this am. Still dry heaving and very nauseous. Currently denies chest pain. Will provide dose of IV Zofran.
Abnormal LFTs throughout admission AST/ALT as high as 603/472; currently AST/ALT 449 426.
-Ultrasound of abdomen shows cholelithiasis without acute acute cholecystitis.
Question if some of patient's ongoing symptoms could also be GI related. Consider GI evaluation.
Multivessel CAD
-non-STEMI on admission with peak troponin 27.5; multivessel coronary artery disease status post CABG in 2019
-s/p diagonal branch stent 2.0 x 12 mm Donald stent 11/25/2023
-Patient had recurrent chest pain after taking a shower 11/29/2023. Twelve-lead EKG without significant ischemic changes. Chest shows mild interstitial pulmonary edema but no effusion or pneumothorax. Repeat troponin elevated but coming down from
earlier this admission. Given sublingual nitroglycerin and morphine with some relief.
-Started on Nitropaste 11/29/23 and also provided morphine 1 mg x 1.
-Reviewed cardiac catheterization with interventional cardiology, no further options for revascularization.
-Will continue to attempt to optimize medical therapy for macro and micro vascular disease:
Continue DAPT
Continue Ranexa 500 mg twice daily and will consider up titration.
Continue NTG paste
Resume losartan 25 mg daily starting 11/29.
Contraindication: Beta-blockers secondary to symptomatic bradycardia arrhythmia/heart block.
Not candidate for SGLT2 inhibitor given type 1 diabetic and associated risk for euglycemic DKA.
Statin currently on hold due to elevated LFTs, [LDL 47 11/26/2023].
HFrEF/ Ischemic cardiomyopathy with a EF 20-30% with ongoing heart failure decompensation, will continue to attempt GDMTfor HFrEF as tolerated
IV Lasix increased to 60 mg twice daily 11/29/2023 but now BUN/Creat is up to 40 and 1.1 on 11/30
Will stop IV Lasix and transition to oral Lasix 40 mg twice daily
Will defer to renal if they prefer an alternate approach/dosing
Note, losartan was initiated 11/29
ARB resuming 11/30/23, Renal function and electrolytes stable
Contraindication: Beta-blockers secondary to symptomatic bradycardia arrhythmia/heart block.
Not candidate for SGLT2 inhibitor given type 1 diabetic and associated risk for euglycemic DKA.
Reassess LV function 40 days after acute RI and revascularization. There may be consideration for ICD and in her case COLLAR FELLER-D however this is risky given her chronic infectious state
Symptomatic bradycardia/complete heart block following initiation of beta-ingrid following cardiac catheterization 11/26/2023
-Required transient use of IV dopamine
-Beta-ingrid discontinued. Avoid AV juliana blocking agents
-Rhythm sinus tach stable; continue to monitor on telemetry
-Would avoid pacemaker implant if able given chronic infectious issues
Hyponatremia-acute on chronic likely exaggerated by CHF (LVEDP was high at 44 suspect hyponatremia related to hypervolemia in setting of decompensated congestive heart failure)
Nephrology feels there may be a component of pain (back pain) causing high ADH activity and may have underlying SIADH with SSRI use
maintain FR 40 ounces/day
Acute on chronic back pain
-lumbar spine MRI with acute L2 fracture, acute T12 fracture, no evidence for discitis or abscess, liver findings suspicious for hepatitis
h/o chronic sternal osteomyelitis
on chronic cefdinir/fluconazole
Total time 55 minutes
HPI: Jessica is a 68 year old female with PMH of CAD with extensive prior cardiac stenting and CABG x2, chronic HFpEF, HTN, HLD, type 1 DM, sarcoidosis, sternal osteomyelitis, and radial artery thrombosis who presented to [facility] for evaluation of chest
pain. She started with chest pain last evening and took a SL nitro which relieved her pain initially. She then went to bed, but again woke up around 4 AM with recurrent chest pain with radiation into her arm. She again took SL nitro, however this
did not relieve her pain. She came to [facility] for evaluation as she states these symptoms are consistent with her prior angina. On arrival to [facility], she was noted to have elevated troponin of 1.26. She was started on IV heparin and given SL nitro, but
continued to have chest pain and arm pain, so she was started on IV nitro. She reports since starting IV nitro, her chest pain has resolved, but she continues to have L arm pain. Echo being completed during interview. She also had elevated troponin
of 2540 and chest xray showed pulmonary edema. Cardiology consulted for evaluation given chest pain with significant coronary disease history.
Progress Note - Spinal Surgeon
Subjective
Date of Service: December 01, 2023
She tells me she has had no chest pain shortness of breath or palpitations.
Objective
Labs:
12/01/23 04:03
12/01/23 04:03
Labs
Hgb 14.2 g/dL (12.0-16.0) 12/01/23 04:03
Hct 40.9 % (37.0-47.0) 12/01/23 04:03
Plt Count 177 10^3/uL (130-400) 12/01/23 04:03
PT 17.0 Sec (11.4-14.6) H 11/26/23 21:50
PT Cancelled 11/26/23 21:50
INR 1.40 11/26/23 21:50
INR Cancelled 11/26/23 21:50
APTT 32.9 Sec (23.4-35.0) 11/26/23 21:50
Sodium 127 mmol/L (135-145) L 12/01/23 04:03
Potassium 4.5 mmol/L (3.5-5.1) 12/01/23 04:03
BUN 40 mg/dl (7-17) H 12/01/23 04:03
Creatinine 1.1 mg/dL (0.6-1.0) H 12/01/23 04:03
Glucose 123 mg/dl (70-99) H 12/01/23 04:03
Troponins
11/29/23 11/29/23 11/30/23
12:51 21:58 05:02
Troponin I 2.990 H* 7.270 H* 19.400 H* D
Vital Signs and I&O:
Vital Signs
Temp Pulse Resp BP Pulse Ox
98 F 85 20 107/62 94
12/01/23 07:39 12/01/23 04:05 12/01/23 07:39 12/01/23 04:05 12/01/23 07:39
Vital Signs
Temp Pulse Resp BP Pulse Ox
98 F 85 20 107/62 94
12/01/23 07:39 12/01/23 04:05 12/01/23 07:39 12/01/23 04:05 12/01/23 07:39
Intake & Output
11/29/23 11/30/23 12/01/23 12/02/23
06:59 06:59 06:59 06:59
Intake Total 1260 / 1260 1200 / 1200 990 / 990
Output Total 50 / 50 500 / 500
Balance 1210 / 1210 1200 / 1200 490 / 490
Physical Exam
Physical Exam
Well-appearing, no acute distress sitting in chair eating breakfast
Regular rate rhythm with normal S1 and S2, no S3 no S4 is agreed 1/6 apical holosystolic murmur no rubs. PMI is laterally and inferiorly displaced
Lungs are clear to auscultation bilaterally
Extremities show no clubbing or cyanosis there is trace pretibial edema bilaterally
Neurologic exam is grossly nonfocal
[2023-12-01] MEDS: MIRALAX 17 GRAMS PO (10:07)
[2023-12-01] MEDS: RANEXA EXTENDED RELEASE 500 MG PO ×2 (10:08→20:12)
[2023-12-01] MEDS: ASPIR LOW (ENTERIC COATED) 81 MG PO (10:09)
[2023-12-01] MEDS: LEXAPRO 5 MG PO (10:09)
[2023-12-01] MEDS: OMNICEF 300 MG PO ×2 (10:09→20:12)
[2023-12-01] MEDS: COZAAR 25 MG PO (10:09)
[2023-12-01] MEDS: SENOKOT 8.6 MG PO ×2 (10:09→20:12)
[2023-12-01] MEDS: PLAVIX 75 MG PO (10:09)
[2023-12-01] MEDS: PROTONIX 40 MG PO (10:09)
[2023-12-01] MEDS: FLEXERIL 5 MG PO ×2 (10:29→20:12)
--- NOTE | 2023-12-01 10:38 | HOSPNOTE ---
Hospice continues to follow. Spoke to Attending and reviewed we are following and available if further assistance is needed. Patient and spouse are still discussing and awaiting GI input. Hospice will follow and be available.
--- NOTE | 2023-12-01 10:58 | W.PN.NEPH.PH ---
Today's Communication / Plan
-
ok with po lasix
monitor cr
low dose samsca later today
Assessment/Plan
-
IMP:
ACS s/p Stent D branch 11/24
ASCVD
Acute systolic and diastolic CHF 25-30%
elevated LFTs
mild to mod MR
mod to severe TR
Acute on chronic Hyponatremia-follows Dr Bliss out pt
DM-I
Benign Hypertension
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
Hypothyroidism
Lung sarcoidosis
PLan:
A/w ACS known complex CAD s/p stent 11/24
hyponatremia-acute on chronic likely exaggerated by CHF
sodium down to 127, will trial low dose samsca today
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
U osmo 340, U na relatively low 33
mild KIM-cr slightly up with increased dose of lasix, ARB resumed today
change to po lasix per cards today
monitor labs in am, cr might cont to fluctuate with cardiorenal process
LVEDP was high at 44 suspect hyponatremia related to hypervolemia in setting of decompensated congestive heart failure
maintain FR 40 ounces/day
TSH and cortisol were ok, SSRI dose reduced this admit
high LFTs-GI consulted
d/w pt and
-
-
Date of Service: December 01, 2023
CC / HPI / ROS
-
Chief Complaint:
hyponatremia
History of Present Illness:
sodium slightly down to 127
cr at 0.8 now at 1.1
no wt today
BP stable
Review of Systems:
c/o CP on and off , on nitro paste, no n/v today
decreased appetite
no sob
c/o back pain and left arm pain
Labs
-
Labs:
WBC 12.2 10^3/uL (4.8-10.8) H 12/01/23 04:03
RBC 4.99 10^6/uL (4.20-5.40) 12/01/23 04:03
Hgb 14.2 g/dL (12.0-16.0) 12/01/23 04:03
Hct 40.9 % (37.0-47.0) 12/01/23 04:03
Plt Count 177 10^3/uL (130-400) 12/01/23 04:03
Sodium 127 mmol/L (135-145) L 12/01/23 04:03
Potassium 4.5 mmol/L (3.5-5.1) 12/01/23 04:03
Chloride 92 mmol/L (98-107) L 12/01/23 04:03
Carbon Dioxide 29 mmol/L (22-30) 12/01/23 04:03
BUN 40 mg/dl (7-17) H 12/01/23 04:03
Creatinine 1.1 mg/dL (0.6-1.0) H 12/01/23 04:03
eGFR 54.06 12/01/23 04:03
Glucose 123 mg/dl (70-99) H 12/01/23 04:03
Calcium 9.3 mg/dl (8.4-10.2) 12/01/23 04:03
Phosphorus 5.2 mg/dl (2.5-4.5) H 11/26/23 03:52
Dqy-D-Lwwthixfhlo Pept > 96062 pg/ml 11/29/23 12:53
Albumin 3.5 g/dl (3.5-5.0) 12/01/23 04:03
Physical Exam
-
Vital Signs:
Vital Signs
Temp Pulse Resp BP Pulse Ox
98 F 85 20 114/67 94
12/01/23 07:39 12/01/23 10:10 12/01/23 07:39 12/01/23 10:10 12/01/23 07:39
Cardiovascular:: Regular rate and rhythm
Respiratory:: Bilateral: CTA
Lung Excursion:: Normal
Abdomen:: Nontender and Soft
Extremity Edema:: None: Bilateral:
Browning Catheter: No
[2023-12-01] MEDS: PT'S OWN INSULIN PUMP - NovoLOG 8.2 UNIT SC (11:43)
[2023-12-01] MEDS: LIDOCAINE 4% PATCH 2 PATCH TOPICAL (11:44)
[2023-12-01 12:56] LABS: Glucose - Point of Care 205 mg/dl (70-99)
[2023-12-01] MEDS: LASIX IV (13:06)
[2023-12-01] MEDS: PT'S OWN INSULIN PUMP - NovoLOG 6 UNIT SC (13:42)
[2023-12-01] MEDS: MYCAMINE 105 MG IV (13:43)
--- NOTE | 2023-12-01 16:22 | CON.GI ---
Consultation
-
Date/Time Consultation Requested: 11/30/2023
Date/Time Consultation Performed: 12/01/2023
Requesting Provider: Sebastian
Performing Provider: Brittany HOUSER
Reason for Consultation: elevated LFT/ nausea
Medical History
Chief Complaint / HPI
Chief Complaint: NSTEMI
History of Present Illness:
68-year-old female with below mentioned significant cardiac past medical history admitted 11/25/2023 with NSTEMI underwent diagnostic PCI 11/25/2023. Angiographically stable and patent GOYAL�LAD and SVG�PDA. Interventional cardiology feels no further
options for revascularization. Also noted to have ejection fraction of 25 to 30%. Currently being managed by optimizing medical therapy. GI was requested to evaluate patient for elevated transaminitis noted since admission. Ultrasound abdomen
showing cholelithiasis without cholecystitis. Bile duct normal.
Patient reports nausea sensation after breakfast mostly. On occasion she vomits as well. Denies any abdominal pain. She was evaluated by a GI at [facility] and underwent EGD in 2022. No records available. She was reassured. No prior history of
liver disease or cirrhosis
Past Medical History
Past Medical History: Other (DM1 CADs/p CABG x 2 (03/11/2020), multiple stents HFrEF HTN hypothyroidism CKD3 Lung sarcoidosis Chronic sternum osteomyelitis )
Past Surgical History: Other (CABG x 2 Multiple Sternum Surgeries including Partial Sternum / Rib Resections, Debridement, etc PTCA with Stent (11 total, most recent July 2023))
Social History
Tobacco: Former Smoker
Alcohol: Occasional
Drug: None
Allergies / Home Medications
Allergy/AdvReac Type Severity Reaction Status Date / Time
amlodipine Allergy Unknown Verified 11/25/23 22:25
cannabidiol (CBD) extract Allergy Unknown Verified 11/25/23 22:25
ciprofloxacin Allergy Nausea / Verified 11/25/23 04:26
Vomiting
evolocumab Allergy hair loss Verified 11/25/23 22:25
[From Repatha Pushtronex]
metoprolol Allergy HEART BLOCK Verified 11/27/23 23:46
rosuvastatin [From Crestor] Allergy cramping Verified 11/25/23 22:25
in legs
sulfamethoxazole Allergy Nausea / Verified 11/25/23 04:26
[From Bactrim] Vomiting
tramadol Allergy Nausea / Verified 11/25/23 04:26
Vomiting
trimethoprim [From Bactrim] Allergy Nausea / Verified 11/25/23 04:26
Vomiting
�Medication �Instructions �Recorded
Ca 600 mg-D3 800 unit-magnes 40 1 ea PO DAILY Supplement 09/18/21
ug-cdzq-ryj-devonte-boron chewable
tablet (Caltrate 600-D Plus
Minerals)
aspirin 81 mg tablet,delayed 81 mg PO DAILY Blood Clot 09/18/21
release (Adult Aspirin Regimen) Prevention/Tx
biotin 1 mg tablet 1 mg PO DAILY Supplement 09/18/21
clopidogrel 75 mg tablet 75 mg PO DAILY Blood Clot 09/18/21
Prevention/Tx
escitalopram oxalate 10 mg tablet 10 mg PO DAILY depression/anxiety 09/18/21
ezetimibe 10 mg tablet 10 mg PO DAILY High Cholesterol 09/18/21
levothyroxine 112 mcg tablet 112 mcg PO DAILY Thyroid 09/18/21
losartan 25 mg tablet 25 mg PO DAILY Blood Pressure 09/18/21
multivit with min-folic 1 ea PO DAILY Supplement 09/18/21
acid-lutein 200 mcg-137.5 mcg
chewable tablet
pantoprazole 40 mg tablet,delayed 40 mg PO DAILY Gastrointestinal 09/18/21
release Issue
pravastatin 10 mg tablet 10 mg PO DAILY High Cholesterol 09/18/21
CoQ-10 1 cap PO DAILY Supplement 11/25/23
cefdinir 300 mg capsule 300 mg PO BID Infection 11/25/23
fluconazole 200 mg tablet 200 mg PO DAILY Infection 11/25/23
isosorbide dinitrate 30 mg tablet 30 mg PO TID Heart 11/25/23
Disease/Condition
ranolazine 500 mg tablet,extended 500 mg PO BID Heart 11/25/23
release,12 hr Disease/Condition
tramadol 37.5 mg-acetaminophen 325 1 tab PO TID PRN L2 compression fx 11/25/23
mg tablet
Review of Systems
-
All other systems: A 12 pt ROS was Negative except as stated above in HPI
Vital Signs
Temp Pulse Resp BP Pulse Ox
99.2 F 82 20 105/79 97
12/01/23 15:27 12/01/23 15:34 12/01/23 15:27 12/01/23 15:34 12/01/23 15:27
Physical Exam
Exam
General: No Apparent Distress
Respiratory: Clear
Cardiac: S1/S2
GI: Soft, Non Tender, Non Distended and Normal Bowel Sounds
Results
WBC 12.2 10^3/uL (4.8-10.8) H 12/01/23 04:03
Hgb 14.2 g/dL (12.0-16.0) 12/01/23 04:03
Hct 40.9 % (37.0-47.0) 12/01/23 04:03
MCV 82.0 fL (81.0-99.0) 12/01/23 04:03
Plt Count 177 10^3/uL (130-400) 12/01/23 04:03
Absolute Neuts (auto) 9.3 10^3/uL (1.4-6.5) H 12/01/23 04:03
PT 17.0 Sec (11.4-14.6) H 11/26/23 21:50
PT Cancelled 11/26/23 21:50
INR 1.40 11/26/23 21:50
INR Cancelled 11/26/23 21:50
APTT 32.9 Sec (23.4-35.0) 11/26/23 21:50
Sodium 127 mmol/L (135-145) L 12/01/23 04:03
Potassium 4.5 mmol/L (3.5-5.1) 12/01/23 04:03
Chloride 92 mmol/L (98-107) L 12/01/23 04:03
Carbon Dioxide 29 mmol/L (22-30) 12/01/23 04:03
BUN 40 mg/dl (7-17) H 12/01/23 04:03
Creatinine 1.1 mg/dL (0.6-1.0) H 12/01/23 04:03
Calcium 9.3 mg/dl (8.4-10.2) 12/01/23 04:03
Total Bilirubin 1.0 mg/dl (0.2-1.3) 12/01/23 04:03
AST 417 U/L (14-36) H 12/01/23 04:03
ALT 342 U/L (0-35) H 12/01/23 04:03
Alkaline Phosphatase 137 U/L (38-126) H 12/01/23 04:03
Hepatitis A IgM Ab Negative (Negative) 11/27/23 03:59
Hep Bs Antibody Negative 11/27/23 03:59
Hep B Core IgM Ab Negative (Negative) 11/27/23 03:59
Hepatitis C Antibody Negative (Negative) 11/25/23 12:19
Diagnostic Image Results:
Prior GI Procedures:
EGD: 2022 at [facility] -reassured as per patient
Colonoscopy: Unable to recall
Assessment / Plan
-
68-year-old female with extensive cardiac history ( CAD s/p PCI/CABG ) admitted with NSTEMI s/p cardiac cath-no further intervention option for revascularization. Currently being managed medically. Ejection fraction was noted to be 25 to 30%.
Also experienced transient complete heart block with beta-ingrid . Patient was extubated 11/26.
-- Nausea/vomiting intermittent episodes especially after breakfast.. Denies any vomiting with lunch or dinner usually. With history of type 1 diabetes for many years there is a possibility of gastroparesis. EGD 2022 with GI was unremarkable
-- Elevated liver test-transaminitis/mildly elevated alkaline phosphatase. Normal bilirubin. Overall stable. Likely secondary to ischemic hepatitis vs congestive hepatopathy ( EF 25-30 %). Ultrasound abdomen unremarkable liver. No bile duct
dilatation. Cholelithiasis. Hepatitis panel negative
plan
Advised on low-fat low fiber diet. Encouraged on small frequent meals
Antiemetics as needed
Continue PPI
Continue trend LFT
Avoid hepatotoxic substance
Patient's need to follow-up with her GI on discharge. If symptoms of nausea/vomiting persist will recommend gastric emptying study as outpatient ( if not performed in the past ) . Also if liver test persistently elevated will recommend outpatient
chronic liver disease workup.
will s/o . Please call us back if any questions
Total Time Spent with Patient (in minutes): 55
-
-
Thank you for consultation and allowing me to participate in the patient's care. Please call the furniture sales consultant GI physician during the after hours with any questions or concerns.
[2023-12-01] MEDS: LASIX 40 MG PO (16:47)
[2023-12-01 16:54] LABS: Glucose - Point of Care 140 mg/dl (70-99)
[2023-12-01] MEDS: PT'S OWN INSULIN PUMP - NovoLOG 7.2 UNIT SC (17:40)
[2023-12-01] MEDS: SAMSCA 7.5 MG PO (17:40)
[2023-12-01] MEDS: LOVENOX 40 MG SC (17:42)
[2023-12-01] MEDS: COLACE 100 MG PO (20:12)
[2023-12-01 21:28] LABS: Glucose - Point of Care 125 mg/dl (70-99)
[2023-12-01] MEDS: PT'S OWN INSULIN PUMP - NovoLOG SC (21:54)
[2023-12-02] VITALS (45 sets, daily range): BP systolic 70–98; BP diastolic 25–72; BMI 24.9
[2023-12-02] MEDS: NITRO-BID 0.5 INCH TOPICAL (03:47)
[2023-12-02] MEDS: FLEXERIL 5 MG PO (04:53)
[2023-12-02] MEDS: SYNTHROID 112 MCG PO (04:53)
[2023-12-02 05:16] LABS: % Basophils 0.3 % (0-2); % Eosinophils 0.3 % (0-6); % Immature Granulocytes 0.4 % (0-0.5); % Lymphocytes 11.7 % (20.5-51.1); % Monocytes 9.9 % (1.7-9.3); % Neutrophils 77.4 % (42.2-75.2); Absolute Immature Granulocytes 0.1 10^3/uL (0-0.05); Absolute Lymphocytes 1.4 10^3/uL (1.2-3.4); Absolute Monocytes 1.2 10^3/uL (0.1-0.6); Absolute Neutrophils 9.1 10^3/uL (1.4-6.5); Hematocrit 37.1 % (37.0-47.0); Hemoglobin 12.7 g/dL (12.0-16.0); Mean Corp Hgb Conc. 34.2 g/dL (33.0-37.0); Mean Corpuscular Hgb 27.9 pg (27.0-31.0); Mean Corpuscular Volume 81.4 fL (81.0-99.0); Mean Platelet Volume 11.1 fL (7.4-10.4); Nucleated Red Blood Cells % 0.2 %; Platelet Count 150 10^3/uL (130-400); Red Blood Cell Count 4.56 10^6/uL (4.20-5.40); Red Cell Dist. Width 15.5 % (11.5-14.5); White Blood Cell Count 11.8 10^3/uL (4.8-10.8)
[2023-12-02 05:30] LABS: ALT (SGPT) 317 U/L (0-35); AST (SGOT) 385 U/L (14-36); Albumin 3.2 g/dl (3.5-5.0); Alkaline Phosphatase 127 U/L (38-126); Blood Urea Nitrogen 57 mg/dl (7-17); Calcium 9.1 mg/dl (8.4-10.2); Carbon Dioxide 25 mmol/L (22-30); Chloride 88 mmol/L (98-107); Direct Bilirubin 0.4 mg/dl (0.0-0.4); Estimated Creatinine Clearance 38 ml/min; Glucose 166 mg/dl (70-99); Magnesium 2.3 mg/dl (1.6-2.3); Potassium 4.9 mmol/L (3.5-5.1); Sodium 123 mmol/L (135-145); Total Bilirubin 1.1 mg/dl (0.2-1.3); Total Protein 5.5 g/dl (6.3-8.2); Triglycerides 65 mg/dl (10-149); eGFR 44.24
--- NOTE | 2023-12-02 05:52 | PTCARENOTE ---
Pt. received at change of shift. VSS, NSR with BBB on tele. Denies chest pain and SOB. Pt. with complaints of constipation, senna and colace administered as per orders, see MAR. Pt. had BM in morning. Flexeril administered x2 during shift for
lower back pain of 5/10. Patient ambulating with x1 assist and rolling walker. Call culver within reach.
[2023-12-02 07:07] LABS: Glucose - Point of Care 184 mg/dl (70-99)
[2023-12-02] MEDS: PT'S OWN INSULIN PUMP - NovoLOG 7 UNIT SC (07:30)
--- NOTE | 2023-12-02 08:15 | PTCARENOTE ---
Assumed care of pt from prev nsg shift; Pt sleeping but easily arousable, AAOx3 w/no c/o CP or SOB this AM. Pt's VS stable w/HR 71, BP 96/57. Pt's Accucheck this AM 184; pt to self-dose using insulin pump once breakfast arrives. Pt w/call culver
within reach & plan of care ongoing.
--- NOTE | 2023-12-02 08:18 | W.PN.HOSP.TC ---
Today's Communication/Plan
-
IVF. Cardiac medications per cardiology. Nephrology reeval
Assessment / Plan
Assessment / Plan
Physical exam:
General: Acutely ill
HEENT: Normocephalic, Atraumatic and Moist Mucous Membranes
Respiratory: Coarse crackles in the bases; Negative Wheezes or Rhonchi
Cardiac: Sternal scar, Regular Rhythm and S1/S2, no murmurs rubs or gallops
GI: Soft, Nontender and Nondistended
Musculoskeletal: Decreased range of motion in the back. Tenderness in the back. No Clubbing, No Cyanosis. Bilateral edema present lower extremities
Neuro: Alert oriented x 3, no gross neurological deficits.
Psych: Calm, normal judgment and insight.
A/P:
NSTEMI, recurrent:
Recurrent chest pain with elevated troponin since yesterday so transferred to IVU
Check troponin as indicated
On nitro paste--> might change back to her oral long-acting nitrate
IV morphine as needed
Continue cardiac monitoring
IV diuretics to switch to oral today per cardiology
Patient will not pursue hospice at this time. She does want to keep CODE STATUS DNR. She does understand we had limited options for her medical treatment moving forward. Continue medical management.
Cardiology following
Status postcardiac cath on 11/24 with stenting of diagonal branch
Continue dual antiplatelet therapy aspirin and Plavix
Started on metoprolol XL but discontinued after cardiac event.
On statins
On Ranexa
Rehab consulted
Discussed with at bedside today
Hypotension/near syncope:
Holding medications that interfere with blood pressure
Cardiology giving some gentle IV fluid hydration
Supportive care
Severe hyponatremia:
Worsening today
Discussed with nephrology who will reevaluate her today
Given Samsca yesterday and despite that sodium is worse
Monitor sodium closely
Elevated LFTs:
Nausea and vomiting subsided
GI consulted--> we will follow-up further recommendations
Monitor LFTs
Ultrasound right upper quadrant with cholelithiasis without evidence of acute cholecystitis
Hepatitis screen negative
Holding fluconazole and statin
Acute systolic congestive heart failure:
Change IV diuretics to oral--> Lasix 40 mg oral p.o. daily
Renal function and electrolyte today pending
BNP upon admission more than 27,000
Monitor strict I/O
Monitor daily weight
Monitor renal function and electrolytes
Reviewed latest echocardiogram on our system
Continue guideline-directed medical therapy for heart failure (GDMT)
Fluid restriction
Salt restriction
Heart failure education
Follow up clinical response
Acute hypoxic respiratory insufficiency:
On supplemental oxygen
Should be able to wean off oxygen over the next 24 to 48 hours
Unresponsiveness due to complete heart block:
Back in normal sinus rhythm
Bradycardia trigger event by wymp-[id number]-ao beta-blockers at all
No need for pacemaker per cardiology
Status post intubated last evening
Started on dopamine--> off pressors
Cardiology on board
Intubated due to airway compromise:
Off mechanical ventilation
Hypotension:
Resolved
Probably medications related
Chronic sternal osteomyelitis:
On oral cefdinir--> ID consulted
ID change fluconazole to IV micafungin for now
Repeat culture during this hospitalization no growth
Acute on chronic back pain due to T12 and L2 acute fracture:
Continue pain meds
Reviewed MRI of the back
No evidence of infection
Might need to contemplate candidacy for kyphoplasty but needs to see how she does with pain meds and therapy.
Diabetes mellitus type 1:
Continue diabetic diet
Continue insulin pump but monitor sugars closely
Hypothyroidism:
Continue thyroid replacement
DVT prophylaxis:
SCDs
Lovenox
CODE STATUS:
DNR
Total time spent on today's encounter was 52 minutes which included time spent in counseling the patient/family regarding diagnosis and treatment plan as listed above, goals of care, and symptom management. Case was discussed with nursing staff,
specialists, and care coordinators/case management. All labs and imaging personally reviewed by me. Remainder the time spent in detailed review of previous records, lab data, imaging, and other medical provider documentation.
Anticipated Discharge: > 48 hours
Subjective/Interval History
-
Date of Service: December 02, 2023
Patient doing well but at time of my evaluation. She did have a near syncope event and mild hypertension after my evaluation and cardiology attended to her.
Objective Data
-
Labs:
Laboratory Results
12/02/23
04:59
WBC 11.8 H
Hgb 12.7
Hct 37.1
Plt Count 150
Sodium 123 L
Potassium 4.9
Chloride 88 L
Carbon Dioxide 25
BUN 57 H
Creatinine 1.3 H
Glucose 166 H
Calcium 9.1
Total Bilirubin 1.1
AST 385 H
ALT 317 H
Alkaline Phosphatase 127 H
Vital Signs:
Vital Signs
Temp Pulse Resp BP Pulse Ox
97.8 F 72 16 96/57 98
12/02/23 06:59 12/02/23 07:03 12/02/23 06:59 12/02/23 07:03 12/02/23 06:59
I&O
12/01/23 12/02/23 12/03/23
06:59 06:59 06:59
Intake Total 990 / 990 820 / 820
Output Total 500 / 500 875 / 875
Balance 490 / 490 -55 / -55
--- NOTE | 2023-12-02 08:36 | PN.DE.MGMTRT ---
Insulin Management
- -
12/02/2023: Diabetes Management F/U:
Patient admitted with chest pain. PMH: CAD with extensive prior cardiac stenting and CABG x2, chronic HFpEF, HTN, HLD, Hypothyroidism, GERD, Sarcoidosis, T1DM (since age 20), radial artery thrombosis and sternum Infection/Osteomyelitis s/p Multiple
Surgeries and on Lifelong Abx.
Pt uses Medtronic 680G with Guardian sensor NovoLog insulin and Quick Sets. She routinely sees Endo Dr. Harris Cazares in [place].
Had Cardiac Cath 11/24.
11/25 patient had episode of bradycardia, code 9 called, required intubation, insulin pump removed and sent home with . Inslin pump resumed on 11/27
post abdominal ultrasound. At that time, new sensor and infusion set were inserted.
Pump settings as follows:
Basal 12am -12am 0.750
24 total basal 18 units.
GPT89bd - 12am 1:73
ICR
12am 1:6.5
11am 1:6
4 pm 1:6
7 pm 1:5.5
Target 85-120
Insulin duration time 2.5hrs
Pt is awake, A/O x3, sitting out of bed in chair, able to discuss insulin pump and glucose control. at bedside.
11/30 Glucose stable and in range 128 to 205, pt administered bolus treatments of 6-8 units AC, fasting 166 this AM.
Will make no change to basal rate.
Diabetes History
- -
Type of Diabetes: 1
Pre-Admission Diabetes Regimen
12/02/23
04:59
Creatinine 1.3 H
Lab Results
Hemoglobin A1c 7.0 % (4.0-5.6) H 11/25/23 04:38
Insulin Pump Settings
IP Diabetes Regimen
12/01/23 12/01/23 12/01/23
12:54 16:52 21:28
Glucose
POC Glucose 205 H 140 H 125 H
12/02/23 12/02/23
04:59 07:05
Glucose 166 H
POC Glucose 184 H
Patient Education
--- NOTE | 2023-12-02 09:15 | PTCARENOTE ---
At approx 0845 while pt was in the bathroom, pt became dizzy, lightheaded, & felt that she could not stand on her own from the toilet. Pt's spouse called for staff. 2 RN's in to assist pt off the toilet using recliner. Pt's legs lifted & head
reclined. Pt's initial BP was 84/45 w/HR 60. Pt's fingerstick glucose 192. Pt had not rec'd AM meds due to waking late & requesting to take them after eating something. This RN spoke w/hospitalist & cardiology, making them aware. Cardiology to see
pt shortly. Pt w/call culver within reach & her spouse at bedside. Plan of care ongoing.
[2023-12-02 09:47] LABS: Glucose - Point of Care 192 mg/dl (70-99)
--- NOTE | 2023-12-02 09:55 | HOSPNOTE ---
Spoke with spouse Brian, he needs a few more days to discuss hospice and the plan. The plan would be for patient to go home and the spouse would be primary caregiver with hospice support. The spouse did ask when her care becomes too difficult can
we help with placement in a SNF. Spouse is aware under hospice care room and board is not covered. The spouse would like to discuss with physicians. I will continue to follow daily. I am not sure if the spouse feels she is end stage and hospice is
appropriate, I feel the spouse needs some guidance to help make the proper decision.
--- NOTE | 2023-12-02 11:12 | W.PN.CARDCBS ---
Today's Communication / Plan
-
-Episode of near syncope this AM with going to bathroom.
Bp is on the lower side. Losartan has been stopped.
Hold Lasix Dec 01 and given IVF 250 cc bolus for hypotension and monitor wts with likely resume lasix next 24 hrs
-Abnormal LFTs throughout admission AST/ALT as high as 603/472; continue to improve.
-Ultrasound of abdomen shows cholelithiasis without acute acute cholecystitis.
-Some of her symptoms are felt to be GI related; appreciate GI input. She may have gastroparesis and GI recommends outpt reeval.
-Cardiac catheterization has been reviewed with interventional cardiology, no further options for revascularization.
Contraindication: Beta-blockers secondary to symptomatic bradycardia arrhythmia/heart block.
Impression / Plan
-
.
PCP: Dr. Caitie Laird
Spray Crew: Dr. Mame Bardales ([facility])
Impression:
-Presented 11/25/2023 with chest pain
-Near syncope Dec 01
-Episode of severe bradycardia and complete heart block after beta ingrid, transient
-VDRF, intubated during episode 11/25, extubated 11/26
-Elevated troponin, NSTEMI: Peak troponin 27.5
-s/p Diag PCI 11/25/23 (Angiographically stable and patent GOYAL-LAD and SVG-PDA). IC feels no further options for revascularization.
-Newly observed HFrEF
-Cardiomyopathy, EF 25-30% by ventriculography and by echocardiogram
-Hyponatremia
-Severe back discomfort with fractures
-CAD
h/o (now) 12 coronary stents
s/p CABG x 2 (GOYAL to LAD, SVG to RPDA) 03/11/2020
s/p PCI of D1 07/29/2023 and stenting at distal edge of prior stent with a 2.25 x 12 mm Donald stent
s/p diagonal branch with a 2.0 x 12 mm Donald stent 11/25/[id number]
-Type I DM
-h/o lung sarcoidosis
-CKD 3
-h/o chronic sternal osteomyelitis
on chronic cefdinir/fluconazole-h/o radial artery thrombosis-Hypothyroidism
Echo 03/09/2020: EF 60 to 65%, mild AI, trace TR,
Echo 11/25/2023: EF 25 to 30%, LAD regional wall motion abnormality, LV most vigorous at base, mid to distal inferior, inferolateral hypokinesis, mid to distal lateral wall hypokinesis, mid to distal anterior wall hypokinesis, stage II diastolic
dysfunction, mild to moderate MR, aortic sclerosis, mild AR, moderate to severe TR, PAP 53 to 58 mmHg
Plan:
Episode of near syncope this AM with going to bathroom.
Bp is on the lower side. Losartan has been stopped.
Hold Lasix Dec 01 and given IVF 250 cc bolus for hypotension and monitor wts with likely resume lasix next 24 hrs
Abnormal LFTs throughout admission AST/ALT as high as 603/472; continue to improve.
-Ultrasound of abdomen shows cholelithiasis without acute acute cholecystitis.
-Some of her symptoms are felt to be GI related; appreciate GI input. She may have gastroparesis and GI recommends outpt reeval.
Multivessel CAD
-non-STEMI on admission with peak troponin 27.5; multivessel coronary artery disease status post CABG in 2019
-s/p diagonal branch stent 2.0 x 12 mm Donald stent 11/25/2023
-Patient had recurrent chest pain after taking a shower 11/29/2023. Twelve-lead EKG without significant ischemic changes. Chest shows mild interstitial pulmonary edema but no effusion or pneumothorax. Repeat troponin elevated but coming down from
earlier this admission. Given sublingual nitroglycerin and morphine with some relief.
-Started on Nitropaste 11/29/23 and also provided morphine 1 mg x 1. Consider nitro patch
-Cardiac catheterization has been reviewed with interventional cardiology, no further options for revascularization.
-Continue to optimize medical therapy for macro and micro vascular disease:
-Continue DAPT
-Continue Ranexa 500 mg twice daily and will consider up titration.
-Resumed losartan 25 mg daily starting 11/29.
-Not candidate for SGLT2 inhibitor given type 1 diabetic and associated risk for euglycemic DKA.
-Statin currently on hold due to elevated LFTs, [LDL 47 11/26/2023].
Contraindication: Beta-blockers secondary to symptomatic bradycardia arrhythmia/heart block.
HFrEF/ Ischemic cardiomyopathy with a EF 20-30% with ongoing heart failure decompensation, will continue to attempt GDMT for HFrEF as tolerated
IV Lasix increased to 60 mg twice daily 11/29/2023 and transitioned to oral Lasix 40 mg twice daily, now held
Will defer to renal if they prefer an alternate approach/dosing
Note, losartan was initiated 11/29
Reassess LV function 40 days after acute OH and revascularization. There may be consideration for ICD and in her case [employer]-D however this is risky given her chronic infectious state
Symptomatic bradycardia/complete heart block following initiation of beta-ingrid following cardiac catheterization 11/26/2023
-Required transient use of IV dopamine
-Beta-ingrid discontinued. Avoid AV juliana blocking agents
-Rhythm remains stable in sinus; continue to monitor on telemetry
-Would avoid pacemaker implant if able given chronic infectious issues
Hyponatremia-acute on chronic likely exaggerated by CHF (LVEDP was high at 44 suspect hyponatremia related to hypervolemia in setting of decompensated congestive heart failure)
Nephrology feels there may be a component of pain (back pain) causing high ADH activity and may have underlying SIADH with SSRI use
maintain FR 40 ounces/day
Acute on chronic back pain
-lumbar spine MRI with acute L2 fracture, acute T12 fracture, no evidence for discitis or abscess, liver findings suspicious for hepatitis
h/o chronic sternal osteomyelitis
-on chronic cefdinir/fluconazole
Discussed with nursing.
Discussed with family at bedside.
HPI: Jessica is a 68 year old female with PMH of CAD with extensive prior cardiac stenting and CABG x2, chronic HFpEF, HTN, HLD, type 1 DM, sarcoidosis, sternal osteomyelitis, and radial artery thrombosis who presented to [facility] for evaluation of chest
pain. She started with chest pain last evening and took a SL nitro which relieved her pain initially. She then went to bed, but again woke up around 4 AM with recurrent chest pain with radiation into her arm. She again took SL nitro, however this
did not relieve her pain. She came to [facility] for evaluation as she states these symptoms are consistent with her prior angina. On arrival to [facility], she was noted to have elevated troponin of 1.26. She was started on IV heparin and given SL nitro, but
continued to have chest pain and arm pain, so she was started on IV nitro. She reports since starting IV nitro, her chest pain has resolved, but she continues to have L arm pain. Echo being completed during interview. She also had elevated troponin
of 2540 and chest xray showed pulmonary edema. Cardiology consulted for evaluation given chest pain with significant coronary disease history.
Progress Note - Spray Crew
Subjective
Date of Service: December 02, 2023
Pt seen and examined. Near syncope this am. No chest pain or shortness of breath.
Objective
Labs:
12/02/23 04:59
12/02/23 04:59
Labs
Hgb 12.7 g/dL (12.0-16.0) 12/02/23 04:59
Hct 37.1 % (37.0-47.0) 12/02/23 04:59
Plt Count 150 10^3/uL (130-400) 12/02/23 04:59
PT 17.0 Sec (11.4-14.6) H 11/26/23 21:50
PT Cancelled 11/26/23 21:50
INR 1.40 11/26/23 21:50
INR Cancelled 11/26/23 21:50
APTT 32.9 Sec (23.4-35.0) 11/26/23 21:50
Sodium 123 mmol/L (135-145) L 12/02/23 04:59
Potassium 4.9 mmol/L (3.5-5.1) 12/02/23 04:59
BUN 57 mg/dl (7-17) H 12/02/23 04:59
Creatinine 1.3 mg/dL (0.6-1.0) H 12/02/23 04:59
Glucose 166 mg/dl (70-99) H 12/02/23 04:59
Troponins
11/29/23 11/29/23 11/30/23
12:51 21:58 05:02
Troponin I 2.990 H* 7.270 H* 19.400 H* D
Vital Signs and I&O:
Vital Signs
Temp Pulse Resp BP Pulse Ox
97.8 F 63 16 90/59 98
12/02/23 06:59 12/02/23 10:43 12/02/23 06:59 12/02/23 10:43 12/02/23 06:59
Vital Signs
Temp Pulse Resp BP Pulse Ox
97.8 F 63 16 90/59 98
12/02/23 06:59 12/02/23 10:43 12/02/23 06:59 12/02/23 10:43 12/02/23 06:59
Intake & Output
11/30/23 12/01/23 12/02/23 12/03/23
06:59 06:59 06:59 06:59
Intake Total 1200 / 1200 990 / 990 820 / 820
Output Total 500 / 500 875 / 875
Balance 1200 / 1200 490 / 490 -55 / -55
Physical Exam
Physical Exam
General: No acute distress, AAOX3
Neck: Negative JVD
Heart: Regular, Negative S3 positive S1/S2, Negative S4, No murmur
Lungs: CTA b/l, negative wheezes/rales/rhonchi
Abd: Positive BS, NT/ND, neg rebound/rigidity/guarding
Ext: Negative cyanosis/clubbing/edema
Neuro: nonfocal
[2023-12-02] MEDS: LASIX PO (11:22)
[2023-12-02] MEDS: ASPIR LOW (ENTERIC COATED) 81 MG PO (11:22)
[2023-12-02] MEDS: RANEXA EXTENDED RELEASE 500 MG PO (11:23)
[2023-12-02] MEDS: OMNICEF 300 MG PO ×2 (11:36→21:39)
[2023-12-02] MEDS: PLAVIX 75 MG PO (11:37)
[2023-12-02] MEDS: LEXAPRO 5 MG PO (11:37)
[2023-12-02] MEDS: PROTONIX 40 MG PO (11:37)
[2023-12-02] MEDS: NSS 250 IV (11:38)
[2023-12-02] MEDS: SENOKOT PO (11:41)
[2023-12-02] MEDS: MIRALAX PO (11:41)
[2023-12-02] MEDS: LIDOCAINE 4% PATCH TOPICAL (11:41)
[2023-12-02] MEDS: COZAAR PO (11:47)
--- NOTE | 2023-12-02 11:57 | PTCARENOTE ---
Assumed care of patient at 1100. Pt is awake, alert, and oriented. No complaints of chest pain. Pt remains SR with BBB. BP 78/54 MAP 63. Pt ordered 250ml NSS bolus. Radial pulses weak, pedal pulses present with Doppler. Pt initially on 2L, now on RA
pulse oximetry 96-98%. Pt tolerated PO medications. Insulin pump in place. Pt reported having bowel movement this morning. Previously voiding in bathroom. Right femoral groin site approximated and AUDREY. Right AC PIV in place. Pt currently resting
comfortably reclined in chair with at bedside.
[2023-12-02] MEDS: NITRO-BID TOPICAL ×3 (12:13→22:07)
[2023-12-02] MEDS: ZOFRAN 4 MG PO (12:22)
--- NOTE | 2023-12-02 12:37 | CM ---
Addendum entered by Leora Shane RN 12/02/23 16:03:
I spoke to the patients . Referrals sent to [facility], [facility], and [facility]. CM to follow
Original Note:
Chart reviewed. Patient is independent of ADLS, lives with her in a [address], [address] [place], 0 [address]. PT/OT recommending acute vs SNF. Psychiatry recommending SNF 2/ to low EF, [facility] won't accept. Referral sent to [facility]. I will follow up with
the family on SNF. Plan is for the patient to go to acute vs SNF. CM to follow
--- NOTE | 2023-12-02 12:58 | PTCARENOTE ---
Pt reported feeling nauseous. PRN Zofran administered along with diet maribell padmaja. Pt reports nausea resolving. 250mL fluid bolus administered. Current BP 83/48 MAP 61. Pt with no complaints of dizziness. Pt currently resting comfortably.
[2023-12-02 13:08] LABS: Glucose - Point of Care 116 mg/dl (70-99)
[2023-12-02] MEDS: PT'S OWN INSULIN PUMP - NovoLOG SC (13:41)
[2023-12-02] MEDS: MYCAMINE 105 MG IV (13:55)
--- NOTE | 2023-12-02 14:29 | W.PN.ID1 ---
Date of Service
Date of Service: December 02, 2023
Today's Communication
Continue antibiotics.
Assessment / Plan
# Chronic sternal osteomyelitis
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
- Follows with Dr. Oh
# Acute elevated AST and ALT
- stabilized / improved
# NSTEMI s/p stent (11/25/23)
# Acute on chronic HF
# s/p syncope due to severe bradycardia (11/26/23)
DM1
CADs/p CABG x 2 (03/11/2020), multiple stents
HFrEF
HTN
hypothyroidism
CKD3
Lung sarcoidosis
RECOMMENDATIONS:
Unlikely Fluconazole-induced liver injury. Pt has been on fluconazole since 2020.
RUQ US: Cholelithiasis without sonographic evidence of acute cholecystitis.
Holding fluconazole for now.
Follow today's pending labs
Continue micafungin 100mg IV q24 (d3) as bridge until LFT's improve, then resume fluconazole with close follow-up of LFT's
Continue cefdinir suppressive tx.
����������������������������������������������������������
Chief Complaint
-: Other (chronic sternal osteo)
Subjective / Review of Systems
Feels quite fatigued today.
Review of Systems: No Fever
Vital Signs / Physical Exam
Vital Signs
Vital Signs
Temp Pulse Resp BP Pulse Ox
97.9 F 64 16 88/55 96
12/02/23 11:25 12/02/23 12:19 12/02/23 11:25 12/02/23 12:19 12/02/23 12:51
Physical Exam
Constitutional: No Acute Distress, Comfortable and Non-toxic
Eyes: Sclera Anicteric
Cardiovascular: S1/S2; Negative S3/S4
Gastrointestinal: Soft, Non Tender and Non Distended
Wound: Other (sternum no erythema or wounds)
Neurological: Awake and Alert
Psychological: Calm
Objective Data
Lab Data
Lab Results
12/02/23 04:59
12/02/23 04:59
PT 17.0 Sec (11.4-14.6) H 11/26/23 21:50
PT Cancelled 11/26/23 21:50
INR 1.40 11/26/23 21:50
INR Cancelled 11/26/23 21:50
APTT 32.9 Sec (23.4-35.0) 11/26/23 21:50
Estimated Creat Clear 38 ml/min 12/02/23 04:59
Lactic Acid 4.5 mmol/L (0.7-2.0) H* 11/29/23 12:51
Total Bilirubin 1.1 mg/dl (0.2-1.3) 12/02/23 04:59
AST 385 U/L (14-36) H 12/02/23 04:59
ALT 317 U/L (0-35) H 12/02/23 04:59
Alkaline Phosphatase 127 U/L (38-126) H 12/02/23 04:59
C-Reactive Protein 44.00 mg/L (0.0-10.00) H 11/26/23 15:40
Most recent labs reviewed.
Micro Results:
11/26/23 20:15 Blood Culture - Final
Blood/Venous No Growth - Final Report
11/25/23 CXR: MODERATE ACUTE INTERSTITIAL CARDIOGENIC PULMONARY EDEMA.
11/26/23 MRI lumbar: No MRI evidence for acute infectious discitis or epidural abscess in the lumbar spine. 2. ACUTE INFERIOR ENDPLATE FRACTURE of L2 with mild to moderate loss of vertebral body height and retropulsion of the posterior inferior
endplate into the anterior epidural space causing mild central canal stenosis and moderate bilateral neural foraminal narrowing. 3. ACUTE SUPERIOR ENDPLATE FRACTURE of T12 with mild loss of vertebral body height.
--- NOTE | 2023-12-02 15:42 | W.PN.UPDATE ---
Update Note
Progress Note Update
Called to see patient for ongoing hypotension. BP more persistently low in the last 24 to 48 hours. WBC elevated, but stable over the last few days and ID has continued most of her usual antifungal drugs and antibiotics and afebrile. Hgb stable. Cre
up to 1.3 this AM and NSS 250 ml bolus given this AM without much difference in BP or symptoms. Deep dive into the chart finds that the only medicine she has been taking with more regularity in the last few days is Flexeril. Patient's notes
that narcotic pain meds relieve pain, but cause constipation. Tramadol helped with constipation, but didn't relieve pain. Over the last few days patient has been using Flexeril BID, this might be why BP has been lower. Made a plan with patient and
her that we will reduce Flexeril to daily and if BP improves and pain/flexibility is manageable then no other changes, but if pain/flexibility becomes unmanageable or if BP does not improve on lower dose Flexeril then will go back to PRN
(which has essentially been BID dosing) and will add midodrine. Plan reviewed with nursing.
--- NOTE | 2023-12-02 16:20 | W.PN.NEPH.PH ---
Today's Communication / Plan
-
- holding lasix, s/p 250cc bolus
- follow up PM BMP
Assessment/Plan
-
IMP:
ACS s/p Stent D branch 11/24
ASCVD
Acute systolic and diastolic CHF 25-30%
elevated LFTs
mild to mod MR
mod to severe TR
Acute on chronic Hyponatremia-follows Dr Bliss out pt
DM-I
Benign Hypertension
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
Hypothyroidism
Lung sarcoidosis
PLan:
A/w ACS known complex CAD s/p stent 11/24
hyponatremia-acute on chronic likely exaggerated by CHF
sodium down to 123 despite giving samsca yesterdya
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
U osmo 340, U na relatively low 33 --> hypervolemia?
mild KIM- Cr again up today to 1.3 (bl 0.8-1)
changed to PO lasix per cards and held today due to symptomatic hypotension. given 250cc bolus as well
check repeat BMP now
LVEDP was high at 44 suspect hyponatremia related to hypervolemia in setting of decompensated congestive heart failure
maintain FR 40 ounces/day and likely will need IV lasix tomorrow if BP can tolerate
TSH and cortisol were ok, SSRI dose reduced this admit
d/w patient and
-
-
Date of Service: December 02, 2023
CC / HPI / ROS
-
Chief Complaint:
hyponatremia
History of Present Illness:
sodium slightly down to 123
cr at 0.8 now at 1.3
weights rising
BP stable
Review of Systems:
c/o CP on and off , on nitro paste, no n/v today
decreased appetite
no sob
c/o back pain and left arm pain
Labs
-
Labs:
WBC 11.8 10^3/uL (4.8-10.8) H 12/02/23 04:59
RBC 4.56 10^6/uL (4.20-5.40) 12/02/23 04:59
Hgb 12.7 g/dL (12.0-16.0) 12/02/23 04:59
Hct 37.1 % (37.0-47.0) 12/02/23 04:59
Plt Count 150 10^3/uL (130-400) 12/02/23 04:59
Sodium 123 mmol/L (135-145) L 12/02/23 04:59
Potassium 4.9 mmol/L (3.5-5.1) 12/02/23 04:59
Chloride 88 mmol/L (98-107) L 12/02/23 04:59
Carbon Dioxide 25 mmol/L (22-30) 12/02/23 04:59
BUN 57 mg/dl (7-17) H 12/02/23 04:59
Creatinine 1.3 mg/dL (0.6-1.0) H 12/02/23 04:59
eGFR 44.24 12/02/23 04:59
Glucose 166 mg/dl (70-99) H 12/02/23 04:59
Calcium 9.1 mg/dl (8.4-10.2) 12/02/23 04:59
Phosphorus 5.2 mg/dl (2.5-4.5) H 11/26/23 03:52
Uxj-S-Ejybyscruac Pept > 45214 pg/ml 11/29/23 12:53
Albumin 3.2 g/dl (3.5-5.0) L 12/02/23 04:59
Physical Exam
-
Vital Signs:
Vital Signs
Temp Pulse Resp BP Pulse Ox
97.7 F 67 16 89/57 94
12/02/23 15:42 12/02/23 16:03 12/02/23 15:42 12/02/23 16:03 12/02/23 15:42
Cardiovascular:: Regular rate and rhythm
Respiratory:: Bilateral: CTA
Lung Excursion:: Normal
Abdomen:: Nontender and Soft
Extremity Edema:: None: Bilateral:
Browning Catheter: No
[2023-12-02 17:31] LABS: Blood Urea Nitrogen 70 mg/dl (7-17); Carbon Dioxide 24 mmol/L (22-30); Chloride 86 mmol/L (98-107); Estimated Creatinine Clearance 31 ml/min; Glucose 114 mg/dl (70-99); Potassium 5.5 mmol/L (3.5-5.1); Sodium 122 mmol/L (135-145); eGFR 34.48
[2023-12-02] MEDS: LOVENOX 40 MG SC (17:36)
[2023-12-02] MEDS: PT'S OWN INSULIN PUMP - NovoLOG 2.1 UNIT SC (17:41)
[2023-12-02 17:42] LABS: Glucose - Point of Care 109 mg/dl (70-99)
[2023-12-02] MEDS: ProAmatine 5 MG PO ×2 (20:10→22:11)
[2023-12-02 21:18] LABS: Glucose - Point of Care 104 mg/dl (70-99)
[2023-12-02] MEDS: SENOKOT 8.6 MG PO (21:39)
--- NOTE | 2023-12-02 22:30 | PTCARENOTE ---
Assumed care of patient at change of shift. Tele monitor shows Sinus Eugene-NSR w/ BBBC. HR in the 50-60s at rest. BP 80's/50's. Pt drowsy but answered orientation q's appropriately . Pt denies any dizziness. Joyce ZEPEDA made aware and at
bedside. Orders obtained for 5mg of Midodrine. BPs remained hypotensive. Corey MANAGER OPERATIONS RESEARCH aware, and orders placed for a second dose of 5mg of Midodrine. See MAR for further details. Blood sugar stable.
[2023-12-02 22:48] LABS: Glucose - Point of Care 116 mg/dl (70-99)
--- NOTE | 2023-12-02 23:08 | W.PN.UPDATE ---
Update Note
Progress Note Update
RN noted BP 70's/48-80's/50's, mild drowsiness denies any chest pain, will order Midodrine 5mg POx1
RN notified again stating BP still continuos to be on lower side 86/45, Patient seen and evaluated. Patient reports mild shortness of breath and drowsiness whole day, denied any chest pain, Notified Street Commissioner, advised to give another dose of
Midodrine. Advised to start Levophed infusion if SBP below 85.
noted BP 90/51 Midodrine 5mg PO given again.
AT 2250 LICENSE EXAMINER called. Patient c/o chest pain, lethargic, BP in 70's/40's -90's/50's. HR 60's, RR 24, oxygen level in 80's,placed on oxygen up to 6l, IV Levophed infusion ordered
ABG stat, CBC, BMP, Mag, lactic acid Troponin stat
EKG done Sinus Bradycardia left Bundle branch block
ABG results noted, will transfer patient to ICU
As patient was rolling out of the floor by staff, Monitor read Asystole, Patient is DNR, bought back to room, Patient with agonal breathing, pulseless, unresponsive, notified, Confirms DNR status.
[2023-12-02 23:15] LABS: O2 Saturation % 99.4 % (94-98); PO2 133 mmHg (83-108); pH 7.48 (7.35-7.45)
[2023-12-02 23:20] LABS: HCO3 11.9 mmol/L (21-28); PCO2 16 mmHg (32-35)
[2023-12-02] MEDS: MORPHINE SULFATE 1 MG IV (23:28)
--- NOTE | 2023-12-03 00:18 | W.PN.DEATH ---
Pronouncement of
-
Called to see patient to pronounce.
No spontaneous heart tones or respirations noted.
Patient not responsive to verbal stimuli.
Patient is pronounced .
Time of : 23:25
Date of : 12/02/23
Family Notified: Yes
--- NOTE | 2023-12-03 01:02 | RR ---
A Rapid Response was called on this patient, please see Rapid Response form.
At approx 22:50, FREELANCE WRITER called d/t patient c/o 'chest pressure', BP 74/47. EKG Sinus bradycardia w/ left BBB. Blood sugar 116. Placed on O2 and uptitrated to 6L. Pt slow to respond, and became restless/lethargic. See RR note for further information. Pt
transported on tele monitor via bed w/ ICU RNs. RN noted patient to be in asystole on monitor. Pt brought back into room 2242 and reevaluated. Pt checked noted to be unresponsive and pulseless and w/ agonal respirations. Joyce Nicole ORTHOPEDIC PHYSICIAN at bedside.
Confirmed DNR status. Patient continued w/ agonal respirations. ORTHOPEDIC PHYSICIAN instructed RN to administer PRN dose of Morphine 1mg for comfort. Tele remains asystole, no spontaneous respirations noted. ORTHOPEDIC PHYSICIAN pronounced patient at 23:30. notified by ORTHOPEDIC PHYSICIAN,
and came to bedside. IV removed. Tele monitor removed. Insulin pump removed, and device and other personal belongings sent home w/ Brian. Post mortem care completed.
--- NOTE | 2023-12-03 07:09 | W.DCSUMMARY ---
Discharge Summary
Discharge Data
Date of Admission: 11/25/23
Date of Discharge: 12/03/23
-
Pending Results: No
Hospital Course
Patient is 68 years old female with complex medical history including but not limited to CAD, hypertension, hyperlipidemia, diabetes mellitus, lung sarcoidosis, CKD, chronic sternal osteomyelitis hypothyroidism presented to the hospital with acute
non-STEMI. Cardiology consulted. Patient was treated with ACS protocol and she underwent cardiac catheterization on 11/24 and had a stent in the diagonal. Patient course complicated with severe hyponatremia, heart failure, elevated LFTs among
other. Patient also had unresponsive episode and went into complete heart block and she was intubated. It was felt that it was beta-blockers related so that was discontinued. Patient was able to be extubated and transferred to floor. Patient had
recurrent issues with recurrent IN and cardiology reevaluated her but felt that she was not a candidate for revascularization and only could be offered medical management. She was maxed out on medical treatment. GI evaluated her for elevated liver
function test and they felt it was related to ischemic hepatitis versus congestive hepatopathy. Infectious disease evaluated the patient and switched around some of the antifungal medications in light of her elevated liver function test and
continued with oral antibiotics. We had areli discussions with patient and about CODE STATUS and she decided about DNR. There was also discussion about hospice care due to limitation of treatment that we could offer. Hospice discussed
with patient but patient did not enroll at the time. Unfortunately, patient continued to deteriorate clinically and she on 12/03/2023.
Discharge duration: 35 minutes
Discharge Plan
-
Patient Disposition:
Date/Time
Date/Time: 12/02/23 01:33
Discharge Date and Time
Discharge Date/Time: 12/02/23 01:33
Print Language: SUDANESE
== END 2023-12-02 01:33 | disposition expired | DRG 321 ==
LOC: IVU 06:24
PROVIDERS: Internal Medicine; Internal Medicine Cardiovascular Disease; Internal Medicine Interventional Cardiology; Nurse Practitioner Family; Nurse Practitioner Gerontology; Physician Assistant Medical; Specialist; Student in an Organized Health Care Education/Training Program; ADMITTING PHYSICIAN Hospitalist; ATTENDING PHYSICIAN Hospitalist; CONSULT PHYSICIAN Internal Medicine; CONSULT PHYSICIAN Internal Medicine Cardiovascular Disease; CONSULT PHYSICIAN Internal Medicine Gastroenterology; CONSULT PHYSICIAN Physical Medicine & Rehabilitation; CONSULT PHYSICIAN Student in an Organized Health Care Education/Training Program; EMERGENCY PHYSICIAN Student in an Organized Health Care Education/Training Program; FAMILY PHYSICIAN Family Medicine Geriatric Medicine; OTHER PHYSICIAN Internal Medicine
PROC: 4A023N7 Measurement of Cardiac Sampling and Pressure, Left Heart, Percutaneous Approach (ICD-10-PCS; 2023-11-25)
PROC: B2151ZZ Fluoroscopy of Left Heart using Low Osmolar Contrast (ICD-10-PCS; 2023-11-25)
PROC: B2181ZZ Fluoroscopy of Left Internal Mammary Bypass Graft using Low Osmolar Contrast (ICD-10-PCS; 2023-11-25)
PROC: B2121ZZ Fluoroscopy of Single Coronary Artery Bypass Graft using Low Osmolar Contrast (ICD-10-PCS; 2023-11-25)
PROC: B2111ZZ Fluoroscopy of Multiple Coronary Arteries using Low Osmolar Contrast (ICD-10-PCS; 2023-11-25)
PROC: 027034Z Dilation of Coronary Artery, One Artery with Drug-eluting Intraluminal Device, Percutaneous Approach (ICD-10-PCS; 2023-11-25)
PROC: 0BH17EZ Insertion of Endotracheal Airway into Trachea, Via Natural or Artificial Opening (ICD-10-PCS; 2023-11-26)
PROC: 5A1945Z Respiratory Ventilation, 24-96 Consecutive Hours (ICD-10-PCS; 2023-11-26)
DX: I21.4 Non-ST elevation (NSTEMI) myocardial infarction (principal); I50.43 Acute on chronic combined systolic (congestive) and diastolic (congestive) heart failure; K72.00 Acute and subacute hepatic failure without coma; S22.080A Wedge compression fracture of T11-T12 vertebra, initial encounter for closed fracture; S32.020A Wedge compression fracture of second lumbar vertebra, initial encounter for closed fracture; E87.1 Hypo-osmolality and hyponatremia; I44.2 Atrioventricular block, complete; I13.0 Hypertensive heart and chronic kidney disease with heart failure and stage 1 through stage 4 chronic kidney disease, or unspecified chronic kidney disease; M86.8X8 Other osteomyelitis, other site; N17.9 Acute kidney failure, unspecified; I25.10 Atherosclerotic heart disease of native coronary artery without angina pectoris; E03.9 Hypothyroidism, unspecified; D86.0 Sarcoidosis of lung; N18.30 Chronic kidney disease, stage 3 unspecified; E78.00 Pure hypercholesterolemia, unspecified; X58.XXXA Exposure to other specified factors, initial encounter; E10.22 Type 1 diabetes mellitus with diabetic chronic kidney disease; E10.69 Type 1 diabetes mellitus with other specified complication; I25.2 Old myocardial infarction; Z79.02 Long term (current) use of antithrombotics/antiplatelets; Z79.82 Long term (current) use of aspirin
CPT/HCPCS: 36600; 71045; 71046; 72158; 76700; 80048; 80051; 80053; 80061; 82140; 82248; 82330; 82533; 82550; 82570; 82805; 82947; 82962; 83036; 83605; 83735; 83880; 83935; 84100; 84132; 84145; 84300; 84443; 84478; 84484; 85025; 85027; 85347; 85610; 85730; 86140; 86705; 86706; 86709; 86803; 87040; 87340; 93005; 93306; 93459; 94002; 94003; 94640; 96374; 96375; 97116; 97163; 97167; 97530; 99291; A9575; C1725; C1760; C1769; C1874; C1894; C9600; Q9950; Q9967